=== PATIENT | male | born 1975 | race Caucasian/White ===

== ENCOUNTER 2018-04-02 06:13 | Inpatient (IN) | payer OTHER ==
[~2018-04-02] VITALS: Ht 193 cm; Wt 160.6 kg
[2018-04-02] VITALS (11 sets, daily range): BP systolic 103–133; BP diastolic 63–70
[~2018-04-02 06:13] MED LIST: ALLO100T PO; BISACODYL 10 MG SUPP.RECT. ONE; BUPIVACAINE-EPI 0.5%-1:200000 50 ML VIAL. ONE; CETI10TA22 PO; HEPARIN 1,000 UNIT in IV NORMAL SALINE 1,000 ML for SURG PERIOP IRR ONE; HYDR25TA9 PO; IOHEXOL 300 MG/ML 100ML VIAL. ONE; MULT1TAB52 PO; RANI150C PO; SURGICEL HEMOSTAT 2X3 EACH. ONE
[2018-04-02] MEDS ORDERED: fentaNYL PF VIAL 100 MCG/2 ML VIAL IV PRN ×2 (07:00)
[2018-04-02] MEDS ORDERED: PROCHLORPERAZINE 10 MG/2 ML VIAL. IV PRN (07:00)
[2018-04-02] MEDS ORDERED: MORPHINE SULFATE 2 MG/ML VIAL. IV PRN (07:00)
[2018-04-02] MEDS ORDERED: ONDANSETRON PF 4 MG/2 ML VIAL. IV PRN (07:00)
[2018-04-02] MEDS ORDERED: LIDOCAINE 1% PF 2 ML VIAL. ID PRN (07:00)
[2018-04-02] MEDS ORDERED: IV RINGERS,LACTATED 1000ML 1,000 ML IV SCH (07:00)
[2018-04-02] MEDS ORDERED: HYDROmorphone 2 MG/ML VIAL IV PRN (07:00)
[2018-04-02] MEDS ORDERED: LIDOCAINE 2% PF 2ML VIAL. ONE (07:30)
[2018-04-02] MEDS ORDERED: ROCURONIUM 100 MG/10 ML VIAL. ONE (07:32)
[2018-04-02] MEDS ORDERED: PROPOFOL 20 ML IV ONE (07:32)
[2018-04-02] MEDS ORDERED: LIDOCAINE 1% PF 5 ML VIAL. ONE (07:32)
[2018-04-02 07:33] LABS: BASO % 1 % (0-3); EOS # 0.1 x10^3/uL (0.0-0.7); EOS % 2 % (0-3); HEMATOCRIT 41.9 % (39.0-53.0); HEMOGLOBIN 14.4 g/dL (13.0-17.5); LYMPH # 1.9 x10^3/uL (1.0-4.8); LYMPH % 24 % (24-48); MEAN CORPUSCULAR HEMOGLOBIN 32 pg (25-35); MEAN CORPUSCULAR HGB CONC 34 g/dL (31-37); MEAN CORPUSCULAR VOLUME 92 fL (79-100); MONO # 0.9 x10^3/uL (0.0-1.1); MONO % 11 % (0-9); NEUT % 63 % (31-73); PLATELET COUNT 198 x10^3/uL (140-400); RED BLOOD COUNT 4.55 x10^6/uL (4.30-5.70); RED CELL DISTRIBUTION WIDTH 13.6 % (11.5-14.5)
[2018-04-02] MEDS ORDERED: fentaNYL PF VIAL 250 MCG/5 ML VIAL ONE (07:33)
--- NOTE | 2018-04-02 07:41 | PDOC ---
SURGICAL PROGRESS NOTE Subjective 42 yo M with episodic jaundice, slow increasing in size pancreatic cyst. TO OR for laparoscopic verus open liver biopsy, cholecystectomy with cholangiogram, distal pancreatectomy, splenectomy. Pt has had vaccines. Office note H&P reviewed and unchanged. R/R/B/A d/w pt and pt's supportive family. Risks, including, but not limited to: bleeding, infection, damage to surrounding structures, risk of anesthesia, risk of pancreatic fistula. They appear to understand, their questions are answered and they elect to proceed. Vital Signs Vital Signs Date Time Temp Pulse Resp B/P (MAP) Pulse Ox O2 Delivery O2 Flow Rate FiO2 04/02/18 07:32 98.2 68 18 153/78 98 Room Air 98.2 Labs Laboratory Tests Test 04/02/18 06:45 White Blood Count 8.0 x10^3/uL (4.0-11.0) Red Blood Count 4.55 x10^6/uL (4.30-5.70) Hemoglobin 14.4 g/dL (13.0-17.5) Hematocrit 41.9 % (39.0-53.0) Mean Corpuscular Volume 92 fL (79-100) Mean Corpuscular Hemoglobin 32 pg (25-35) Mean Corpuscular Hemoglobin Concent 34 g/dL (31-37) Red Cell Distribution Width 13.6 % (11.5-14.5) Platelet Count 198 x10^3/uL (140-400) Neutrophils (%) (Auto) 63 % (31-73) Lymphocytes (%) (Auto) 24 % (24-48) Monocytes (%) (Auto) 11 % (0-9) Eosinophils (%) (Auto) 2 % (0-3) Basophils (%) (Auto) 1 % (0-3) Neutrophils # (Auto) 5.0 x10^3uL (1.8-7.7) Lymphocytes # (Auto) 1.9 x10^3/uL (1.0-4.8) Monocytes # (Auto) 0.9 x10^3/uL (0.0-1.1) Eosinophils # (Auto) 0.1 x10^3/uL (0.0-0.7) Basophils # (Auto) 0.0 x10^3/uL (0.0-0.2) Laboratory Tests Test 04/02/18 06:45 White Blood Count 8.0 x10^3/uL (4.0-11.0) Red Blood Count 4.55 x10^6/uL (4.30-5.70) Hemoglobin 14.4 g/dL (13.0-17.5) Hematocrit 41.9 % (39.0-53.0) Mean Corpuscular Volume 92 fL (79-100) Mean Corpuscular Hemoglobin 32 pg (25-35) Mean Corpuscular Hemoglobin Concent 34 g/dL (31-37) Red Cell Distribution Width 13.6 % (11.5-14.5) Platelet Count 198 x10^3/uL (140-400) Neutrophils (%) (Auto) 63 % (31-73) Lymphocytes (%) (Auto) 24 % (24-48) Monocytes (%) (Auto) 11 % (0-9) Eosinophils (%) (Auto) 2 % (0-3) Basophils (%) (Auto) 1 % (0-3) Neutrophils # (Auto) 5.0 x10^3uL (1.8-7.7) Lymphocytes # (Auto) 1.9 x10^3/uL (1.0-4.8) Monocytes # (Auto) 0.9 x10^3/uL (0.0-1.1) Eosinophils # (Auto) 0.1 x10^3/uL (0.0-0.7) Basophils # (Auto) 0.0 x10^3/uL (0.0-0.2) RENETTA LAMBERT MD Apr 02, 2018 07:41
[2018-04-02] MEDS ORDERED: ePHEDrine PF IN SALINE 50 MG/5 ML DISP.SYRIN IV ONE (08:42)
[2018-04-02] MEDS ORDERED: DEXAMETHASONE SOD PHOS 20 MG/5 ML VIAL. ONE (08:42)
[2018-04-02] MEDS ORDERED: BUPIVACAINE MPF 0.25% 30 ML VIAL. ONE (08:53)
[2018-04-02] MEDS ORDERED: HYDROCORTISONE SOD SUCC/PF 100 MG/2 ML VIAL. ONE (08:58)
[2018-04-02] MEDS ORDERED: diphenhydrAMINE 50 MG/ML VIAL ONE (08:58)
[2018-04-02] MEDS ORDERED: FAMOTIDINE 20 MG/2 ML VIAL ONE (08:58)
[2018-04-02] MEDS ORDERED: NALOXONE 0.4 MG/ML VIAL. IV PRN (09:00)
[2018-04-02] MEDS ORDERED: METRONIDAZOLE 500 MG IV ONE (09:15)
[2018-04-02] MEDS ORDERED: DESFLURANE > 120 MINUTES IH ONE (09:21)
--- NOTE | 2018-04-02 09:44 | RAD ---
Intraoperative cholangiogram, 3 views, 04/02/2018: HISTORY: Cholecystectomy 3 spot films from surgery are presented for review. Contrast has been injected into the cystic duct remnant. 0.5 minutes of fluoroscopy time was utilized. There is good flow contrast into the duodenum at the ampulla. No filling defect is seen in the common duct to suggest a retained stone, although some patient motion artifact is present on these images. The incompletely opacified intrahepatic ducts are unremarkable. No contrast extravasation is seen. IMPRESSION: No significant abnormality is detected. Electronically signed by: Earnest Chacko MD (04/02/2018 9:41 AM) [facility]
[2018-04-02] MEDS ORDERED: NEOSTIGMINE METHYLSULFATE 5 MG/5 ML SYRINGE. ONE (10:29)
[2018-04-02] MEDS ORDERED: GLYCOPYRROLATE 1 MG/5 ML VIAL. ONE (10:29)
[2018-04-02] MEDS ORDERED: ONDANSETRON PF 4 MG/2 ML VIAL. ONE (10:30)
[2018-04-02] MEDS ORDERED: SURGICEL HEMOSTAT 4X8 EACH. ONE (10:58)
[2018-04-02] MEDS ORDERED: PHENYLEPHRINE in 0.9% NACL PF 1 MG/10 ML SYRINGE. IV ONE (11:54)
[2018-04-02] MEDS ORDERED: 0.9 % SODIUM CHLORIDE 10 ML DISP.SYRIN. IV PRN (13:45)
[2018-04-02] MEDS: IV RINGERS,LACTATED 1000ML 1,000 ML IV SCH ×2 (14:00→21:39)
--- NOTE | 2018-04-02 14:05 | PDOC4 ---
OPERATIVE NOTE Date: Date: Apr 02, 2018 Pre-Op Diagnosis: Pancreatic cyst Post-Op Diagnosis: same, small bowel adhesion, cholecystitis, fatty liver, morbid obesity, heterotrophic pancreas proximal small bowel Procedure Performed: Laparoscopic cholecystectomy with cholangiogram, liver biopsy, lysis of adhesion , small bowel biopsy, distal pancreatectomy and splenectomy Surgeon: Vargas Lambert Anesthesia Type: GETA plus local Blood Loss: 800 Specimans Obtained: omental biopsy, gallbladder, liver biopsy, distal pancreas and spleen, small bowel mass Findings: Adherent small bowel to right abdominal wall, omental mass c/w fat necrosis, morbid obesity making procedure difficult throughout, scarring to gallbladder, normal cholangiogram, fatty liver, moderate size cyst neck of pancreas, splenomegaly Complications: none Operative Note: After obtaining informed consent, patient was taken to OR, induced under GETA and prepped in the usual fashion. 5 mm port placed supraumbilical and RUQ, 12 port placed epigastric, all under laparoscopic exploration. Abdominal cavity explored and normal except for other listed issues. Liver was fatty in nature. Given previous episode of suspected jaundice, liver biopsy obtained edge of right liver using ligasure. Specimen delivered and sent to pathology. No obvious bleeding. Gallbladder noted to have significant scarring to it. Given history of possible gallstone pancreatitis and this scarring, cholecystectomy was performed. Adhesions taken down using sharp dissection. Circumferential dissection performed of cystic duct infundibulum junction. Cystic artery ligated with ligasure. Critical view obtained which demonstrated cystic duct as only structure going into gallbladder. Cholangiogram was obtained which was normal. Cystic duct ligated with hemolok and clips. Gallbladder taken off of fossa using ligasure and cautery. Gallbladder placed in bag, delivered and sent to pathology for evaluation. Clips intact. No evidence of bleeding. A loop of small intestine adherent to right abdominal wall with some separation of peritoneum (suspect kidney extraction site). Adhesion lysed with endoshears , without injury of bowel. Later, during open procedure, small bowel explored completely and appeared normal and uninjured. Attempts at dissecting greater curvature of stomach was difficult, secondary to morbid obesity. Given this, open procedure indicated. Midline incision was made with cautery. Fascia divided in midline. Abdominal cavity explored. Right omental mass was noted and excised with ligasure. Pathology demonstrated this to be fat necrosis. Small bowel run and normal except for nodule in upper small bowel, palpably. Small bowel excised longitudinally and closed transversely with 3 0 PDS and 3 0 vicryl. Mass sent to pathology which noted heterotrophic pancreas. No other bowel abnormality noted. NGT noted to be in stomach. Attention turned to pancreas. Greater curvature taken down using cautery, including short gastrics, with injuring stomach. Neck of pancreas dissected out. Moderate size cyst noted, well defined in the setting of otherwise soft, pink and normal gland. Splenic artery ligated with 0 vicryl and ligasure. Splenic vein ligated with 3 0 prolene. Neck of pancreas transected with MARHSA stapler. Pancreas dissected distally using ligasure. Spleen dissected out from attachment using ligasure, without injuring associated splenic flexure of colon. Specimen sent to pathology for evaluation. Copious irrigation. No obvious bleeding noted. Surgicel placed in fossa. Transected margin of pancreas noted to be soft and an obvious duct not noted and felt to be small in size. Given this, and patient's morbid obesity, large drain placement indicated , secondary to concern for pancreatic fistula. Round ligament of liver had been mobilized for placement, but not an option secondary to body habitus. Nirmala drain brought in LUQ and placed in splenic fossa near transected margin and secured with 3 0 nylon. Copious irrigation. No evidence of bleeding or other pathology. Fascia repaired with 0 PDS. Axel placed in wound. Skin repaired with 3 0 vicyrl and 4 0 monocryl. Dressing placed. Patient tolerated procedure well and sent to PACU in stable condition. All counts correct. Wound class 3. RENETTA LAMBERT MD Apr 02, 2018 14:05
--- NOTE | 2018-04-02 15:30 | RAD ---
KUB, 04/02/2018: HISTORY: Postop evaluation The abdominal gas pattern is unremarkable. There is no evidence of a retained surgical instrument, needle or radiopaque sponge on this single view. Electronically signed by: Earnest Chacko MD (04/02/2018 3:26 PM) [facility]
[2018-04-02] MEDS: NORMAL SALINE EP PRN ×2 (15:47→21:41)
[2018-04-02] MEDS: ROPIVACAINE 0.5% EP PRN ×2 (15:47→21:41)
[2018-04-02] MEDS: [UNRECOGNIZED DRUG - OTHER] EP PRN ×2 (15:47→21:41)
[2018-04-02] MEDS: FENTANYL EP PRN ×2 (15:47→21:41)
[2018-04-02] MEDS: ONDANSETRON PF 4 MG/2 ML VIAL. IV PRN (23:00)
[2018-04-03 03:30] VITALS: BP 120/62
[2018-04-03] MEDS: ROPIVACAINE 0.5% EP PRN ×4 (03:40→20:10)
[2018-04-03] MEDS: [UNRECOGNIZED DRUG - OTHER] EP PRN ×4 (03:40→20:10)
[2018-04-03] MEDS: FENTANYL EP PRN ×4 (03:40→20:10)
[2018-04-03] MEDS: NORMAL SALINE EP PRN ×4 (03:40→20:10)
[2018-04-03] MEDS ORDERED: PHENOL ORAL SPRAY 177ML BOTTLE. PO PRN (05:45)
[2018-04-03 07:00] VITALS: BP 114/60
[2018-04-03 07:00] LABS: BASO % 0 % (0-3); EOS % 0 % (0-3); HEMATOCRIT 40.9 % (39.0-53.0); HEMOGLOBIN 13.9 g/dL (13.0-17.5); LYMPH # 1.1 x10^3/uL (1.0-4.8); LYMPH % 4 % (24-48); MEAN CORPUSCULAR HEMOGLOBIN 32 pg (25-35); MEAN CORPUSCULAR HGB CONC 34 g/dL (31-37); MEAN CORPUSCULAR VOLUME 93 fL (79-100); MONO # 3.8 x10^3/uL (0.0-1.1); MONO % 13 % (0-9); NEUT # 23.4 x10^3uL (1.8-7.7); NEUT % 82 % (31-73); PLATELET COUNT 239 x10^3/uL (140-400); RED BLOOD COUNT 4.38 x10^6/uL (4.30-5.70); RED CELL DISTRIBUTION WIDTH 13.8 % (11.5-14.5)
[2018-04-03 07:06] LABS: WHITE BLOOD COUNT 28.4 x10^3/uL (4.0-11.0)
[2018-04-03] MEDS ORDERED: DEXTROSE 50% 25 GM / 50ML DISP.SYRIN. IV PRN ×2 (08:00→13:30)
[2018-04-03] MEDS: IV RINGERS,LACTATED 1000ML 1,000 ML IV SCH ×2 (09:19→14:47)
[2018-04-03 09:25] LABS: % BANDS 7 % (0-9); % LYMPHS 5 % (24-48); % MONOS 8 % (0-10); % SEGS 80 % (35-66); PLT ESTIMATE ADEQUATE (ADEQUATE)
[2018-04-03] MEDS: HEPARIN PF for SUB-Q USE 5,000 UNIT/0.5 ML VIAL. SQ SCH ×2 (09:27→21:26)
[2018-04-03] MEDS: ONDANSETRON PF 4 MG/2 ML VIAL. IV PRN ×3 (10:22→21:15)
[2018-04-03 11:00] VITALS: BP 118/73
[2018-04-03] MEDS ORDERED: IV RINGERS,LACTATED 500ML 500 ML IV ONE (11:30)
--- NOTE | 2018-04-03 11:32 | PDOC ---
SURGICAL PROGRESS NOTE Subjective Pt with c/o incisional pain, sitting up in chair, appears fatigued. Has ambulated to door and back Vital Signs Vital Signs Date Time Temp Pulse Resp B/P (MAP) Pulse Ox O2 Delivery O2 Flow Rate FiO2 04/03/18 11:00 97.5 110 18 118/73 (88) 93 Nasal Cannula 97.5 04/03/18 04:10 2.0 I&O Intake and Output 04/03/18 07:00 Intake Total 3253 ml Output Total 2215 ml Balance 1038 ml Intake Oral 3 ml IV Total 3250 ml Output Urine Total 1110 ml Gastric Drainage Total 200 ml Drainage Total 105 ml Estimated Blood Loss 800 ml PATIENT HAS A ENRIQUE: Yes General: Alert, Oriented X3, Cooperative, No acute distress Abdomen: Soft, Other (dressing intact, drain with dark sanguinous drainage) Labs Laboratory Tests Test 04/02/18 06:45 04/02/18 17:06 04/02/18 23:04 04/03/18 06:05 White Blood Count 8.0 x10^3/uL (4.0-11.0) 28.4 x10^3/uL (4.0-11.0) Red Blood Count 4.55 x10^6/uL (4.30-5.70) 4.38 x10^6/uL (4.30-5.70) Hemoglobin 14.4 g/dL (13.0-17.5) 13.9 g/dL (13.0-17.5) Hematocrit 41.9 % (39.0-53.0) 40.9 % (39.0-53.0) Mean Corpuscular Volume 92 fL (79-100) 93 fL (79-100) Mean Corpuscular Hemoglobin 32 pg (25-35) 32 pg (25-35) Mean Corpuscular Hemoglobin Concent 34 g/dL (31-37) 34 g/dL (31-37) Red Cell Distribution Width 13.6 % (11.5-14.5) 13.8 % (11.5-14.5) Platelet Count 198 x10^3/uL (140-400) 239 x10^3/uL (140-400) Neutrophils (%) (Auto) 63 % (31-73) 82 % (31-73) Lymphocytes (%) (Auto) 24 % (24-48) 4 % (24-48) Monocytes (%) (Auto) 11 % (0-9) 13 % (0-9) Eosinophils (%) (Auto) 2 % (0-3) 0 % (0-3) Basophils (%) (Auto) 1 % (0-3) 0 % (0-3) Neutrophils # (Auto) 5.0 x10^3uL (1.8-7.7) 23.4 x10^3uL (1.8-7.7) Lymphocytes # (Auto) 1.9 x10^3/uL (1.0-4.8) 1.1 x10^3/uL (1.0-4.8) Monocytes # (Auto) 0.9 x10^3/uL (0.0-1.1) 3.8 x10^3/uL (0.0-1.1) Eosinophils # (Auto) 0.1 x10^3/uL (0.0-0.7) 0.0 x10^3/uL (0.0-0.7) Basophils # (Auto) 0.0 x10^3/uL (0.0-0.2) 0.0 x10^3/uL (0.0-0.2) Potassium Level 3.8 mmol/L (3.5-5.1) Glucose (Fingerstick) 153 mg/dL (70-99) 159 mg/dL (70-99) Segmented Neutrophils % 80 % (35-66) Band Neutrophils % 7 % (0-9) Lymphocytes % 5 % (24-48) Monocytes % 8 % (0-10) Platelet Estimate Adequate (ADEQUATE) Test 04/03/18 08:03 Glucose (Fingerstick) 178 mg/dL (70-99) Laboratory Tests Test 04/02/18 17:06 04/02/18 23:04 04/03/18 06:05 04/03/18 08:03 Glucose (Fingerstick) 153 mg/dL (70-99) 159 mg/dL (70-99) 178 mg/dL (70-99) White Blood Count 28.4 x10^3/uL (4.0-11.0) Red Blood Count 4.38 x10^6/uL (4.30-5.70) Hemoglobin 13.9 g/dL (13.0-17.5) Hematocrit 40.9 % (39.0-53.0) Mean Corpuscular Volume 93 fL (79-100) Mean Corpuscular Hemoglobin 32 pg (25-35) Mean Corpuscular Hemoglobin Concent 34 g/dL (31-37) Red Cell Distribution Width 13.8 % (11.5-14.5) Platelet Count 239 x10^3/uL (140-400) Neutrophils (%) (Auto) 82 % (31-73) Lymphocytes (%) (Auto) 4 % (24-48) Monocytes (%) (Auto) 13 % (0-9) Eosinophils (%) (Auto) 0 % (0-3) Basophils (%) (Auto) 0 % (0-3) Neutrophils # (Auto) 23.4 x10^3uL (1.8-7.7) Lymphocytes # (Auto) 1.1 x10^3/uL (1.0-4.8) Monocytes # (Auto) 3.8 x10^3/uL (0.0-1.1) Eosinophils # (Auto) 0.0 x10^3/uL (0.0-0.7) Basophils # (Auto) 0.0 x10^3/uL (0.0-0.2) Segmented Neutrophils % 80 % (35-66) Band Neutrophils % 7 % (0-9) Lymphocytes % 5 % (24-48) Monocytes % 8 % (0-10) Platelet Estimate Adequate (ADEQUATE) Problem List s/p xlap encouraged OOB await bowel fxn fluid bolus for mild tachycardia and dark UOP consult hospitalist for elevated sugars (suspect post op in nature) monitor WBC (post splenectomy) RENETTA LAMBERT MD Apr 03, 2018 11:32
--- NOTE | 2018-04-03 13:23 | PDOC2 ---
CONSULT Date of Consult Date of Consult DATE: 04/03/18 TIME: 13:19 Reason for Consult Reason for Consult: Hyperglycemia Referring Physician Referring Physician: dr. Goldberg Identification/Chief Complaint Chief Complaint Pancreatic cyst Source Source: Caregiver, Chart review, Patient History of Present Illness Reason for Visit: 42yo m, H/O RT kidney Ca s/p removal , kidney stone on allopurinol and hctz, s/ p sx for pancreatic cyst. as per dr. Lee, the pancreatic cyst was big, and concerned about malignancy , for which pt underwent lap changed to open abd sx , Laparoscopic cholecystectomy with cholangiogram, liver biopsy, lysis of adhesion, small bowel biopsy, distal pancreatectomy and splenectomy. pt current feels pain 4/10 with epidural pain control, npo, NGT , 1 Left side ANDREY drain. has no bm or flatus post op. TH was consulted for hyperglycemia. Past Medical History Past Medical History kidney stone Past Surgical History Past Surgical History nephrectomy Family History Family History: Hypertension Social History No ALCOHOL: none Drugs: None Lives: with Family Domestic Violence: Neg Current Medications Current Medications Current Medications Heparin Sodium (Porcine) 1000 unit/Sodium Chloride 1,001 ml @ 1,001 mls/hr 1X ONCE IRR ; Start 04/02/18 at 06:00; Stop 04/02/18 at 06:59; Status DC Cefazolin Sodium/ Dextrose 50 ml @ 100 mls/hr 1X PREOP PRN IV PRIOR TO PROCEDURE Last administered on 04/02/18at 08:43; Start 04/02/18 at 06:00; Stop 04/02 at 18:00; Status DC Ondansetron HCl (Zofran) 4 mg PRN Q6HRS PRN IV NAUSEA/VOMITING Last administered on 04/02/18at 17:33; Start 04/02/18 at 07:00; Stop 04/03/18 at 06:59; Status DC Fentanyl Citrate (Fentanyl 2ml Vial) 25 mcg PRN Q5MIN PRN IV MILD PAIN; Start 04/02/18 at 07:00; Stop 04/03/18 at 06:59; Status DC Fentanyl Citrate (Fentanyl 2ml Vial) 50 mcg PRN Q5MIN PRN IV MODERATE TO SEVERE PAIN; Start 04/02/18 at 07:00; Stop 04/03/18 at 06:59; Status DC Morphine Sulfate (Morphine Sulfate) 1 mg PRN Q10MIN PRN IV SEVERE PAIN; Start 04/02/18 at 07:00; Stop 04/03/18 at 06:59; Status DC Ringer's Solution 1,000 ml @ 30 mls/hr Q24H IV Last administered on 04/02/18at 07:00; Start 04/02/18 at 07:00; Stop 04/02/18 at 18:59; Status DC Lidocaine HCl (Xylocaine-Mpf 1% 2ml Vial) 2 ml PRN 1X PRN ID IV START; Start at 07:00; Stop 04/03/18 at 06:59; Status DC Hydromorphone HCl (Dilaudid) 0.5 mg PRN Q10MIN PRN IV SEV PAIN, Second choice; Start 04/02/18 at 07:00; Stop 04/03/18 at 06:59; Status DC Prochlorperazine Edisylate (Compazine) 5 mg PACU PRN PRN IV NAUSEA, MRX1; Start 04/02/18 at 07:00; Stop 04/03/18 at 06:59; Status DC Bupivacaine HCl/ Epinephrine Bitart (Marcaine-Epi 0.5%-1:[id number]) 50 ml STK-MED ONCE .ROUTE Last administered on 04/02/18at 09:00; Start 04/02/18 at 05:50; Stop 04/02/18 at 06:50; Status DC Cellulose (Surgicel Hemostat 2x3) 1 each STK-MED ONCE .ROUTE ; Start 04/02/18 at 05:50; Stop 04/02/18 at 06:50; Status DC Iohexol (Omnipaque 300 Mg/ml) 100 ml STK-MED ONCE .ROUTE ; Start 04/02/18 at 05: 50; Stop 04/02/18 at 06:50; Status DC Bisacodyl (Dulcolax Supp) 10 mg STK-MED ONCE .ROUTE ; Start 04/02/18 at 05:50; Stop 04/02/18 at 06:51; Status DC Bupivacaine HCl/ Epinephrine Bitart (Marcaine-Epi 0.5%-1:[id number]) 50 ml STK-MED ONCE .ROUTE ; Start 04/02/18 at 06:10; Stop 04/02/18 at 07:11; Status DC Cellulose (Surgicel Hemostat 2x3) 1 each STK-MED ONCE .ROUTE ; Start 04/02/18 at 06:10; Stop 04/02/18 at 07:11; Status DC Bisacodyl (Dulcolax Supp) 10 mg STK-MED ONCE .ROUTE ; Start 04/02/18 at 06:10; Stop 04/02/18 at 07:11; Status DC Iohexol (Omnipaque 300 Mg/ml) 100 ml STK-MED ONCE .ROUTE ; Start 04/02/18 at 06: 11; Stop 04/02/18 at 07:12; Status DC Lidocaine HCl (Xylocaine-Mpf 2% Vial) 2 ml STK-MED ONCE .ROUTE ; Start 04/02/18 at 07:30; Stop 04/02/18 at 07:31; Status DC Propofol 20 ml @ As Directed STK-MED ONCE IV ; Start 04/02/18 at 07:32; Stop 04/02 at 07:33; Status DC Lidocaine HCl (Xylocaine-Mpf 1% 5ml Vial) 5 ml STK-MED ONCE .ROUTE ; Start at 07:32; Stop 04/02/18 at 07:33; Status DC Rocuronium [place] (Zemuron) 100 mg STK-MED ONCE .ROUTE ; Start 04/02/18 at 07:32 ; Stop 04/02/18 at 07:33; Status DC Fentanyl Citrate (Fentanyl 5ml Vial) 250 mcg STK-MED ONCE .ROUTE ; Start at 07:33; Stop 04/02/18 at 07:34; Status DC Dexamethasone Sodium Phosphate (Decadron) 20 mg STK-MED ONCE .ROUTE ; Start 04/02 at 08:42; Stop 04/02/18 at 08:43; Status DC Ephedrine Sulfate (ePHEDrine PF IN SALINE SYRINGE) 50 mg STK-MED ONCE IV ; Start 04/02/18 at 08:42; Stop 04/02/18 at 08:43; Status DC Sodium Chloride 38.4 ml/Fentanyl Citrate 250 mcg/ Ropivacaine 10 ml/ Epidural Dosage Infused (Pha) 53.4 ml @ 0 mls/hr CONT PRN EP SEE PROTOCOL TABLE Last administered on 04/03/18at 09:19; Start 04/02/18 at 09:00 Naloxone HCl (Narcan) 0.1 mg PRN 1X PRN IV RESP DEPRESSION, MRX1; Start at 09:00 Bupivacaine HCl (Sensorcaine Mpf 0.25%) 30 ml STK-MED ONCE .ROUTE ; Start at 08:53; Stop 04/02/18 at 08:54; Status DC Famotidine (Pepcid Vial) 20 mg STK-MED ONCE .ROUTE ; Start 04/02/18 at 08:58; Stop 04/02/18 at 08:59; Status DC Hydrocortisone Sodium Succinate (Solu-CORTEF) 100 mg STK-MED ONCE .ROUTE ; Start 04/02/18 at 08:58; Stop 04/02/18 at 08:59; Status DC Diphenhydramine HCl (Benadryl) 50 mg STK-MED ONCE .ROUTE ; Start 04/02/18 at 08: 58; Stop 04/02/18 at 08:59; Status DC Metronidazole 200 ml @ 200 mls/hr 1X ONCE IV Last administered on 04/02/18at 09 :11; Start 04/02/18 at 09:15; Stop 04/02/18 at 10:14; Status DC Desflurane (Suprane) 90 ml STK-MED ONCE IH ; Start 04/02/18 at 09:21; Stop at 09:22; Status DC Glycopyrrolate (Robinul) 1 mg STK-MED ONCE .ROUTE ; Start 04/02/18 at 10:29; Stop 04/02/18 at 10:30; Status DC Neostigmine Methylsulfate (Neostigmine Methylsulfate) 5 mg STK-MED ONCE .ROUTE ; Start 04/02/18 at 10:29; Stop 04/02/18 at 10:30; Status DC Ondansetron HCl (Zofran) 4 mg STK-MED ONCE .ROUTE ; Start 04/02/18 at 10:30; Stop 04/02/18 at 10:31; Status DC Phenylephrine HCl (PHENYLEPHRINE in 0.9% NACL PF) 1 mg STK-MED ONCE IV ; Start 04/02/18 at 11:54; Stop 04/02/18 at 11:55; Status DC Cellulose (Surgicel Hemostat 4x8) 1 each STK-MED ONCE .ROUTE Last administered on 04/02/18at 12:00; Start 04/02/18 at 10:58; Stop 04/02/18 at 11:58; Status DC Sodium Chloride (Normal Saline Flush) 3 ml QSHIFT PRN IV AFTER MEDS AND BLOOD DRAWS; Start 04/02/18 at 13:45 Ringer's Solution 1,000 ml @ 100 mls/hr Q10H IV Last administered on 04/03/18at 09:19; Start 04/02/18 at 14:00 Ondansetron HCl (Zofran) 4 mg PRN Q6HRS PRN IV NAUESA, 1ST CHOICE Last administered on 04/03/18at 10:22; Start 04/02/18 at 13:45 Heparin Sodium (Porcine) (Heparin Sq) 5,000 unit Q12HR SQ Last administered on 04/03/18at 09:27; Start 04/03/18 at 09:00 Throat Lozenges (Chloraseptic) 1 spray PRN Q2HR PRN PO SORE THROAT; Start at 05:45 Dextrose (Dextrose 50%-Water Syringe) 12.5 gm PRN Q15MIN PRN IV SEE COMMENTS; Start 04/03/18 at 08:00 Ringer's Solution 500 ml @ 500 mls/hr 1X ONCE IV ; Start 04/03/18 at 11:30; Stop 04/03/18 at 12:29; Status DC Active Scripts Active Reported Multivitamins (Multivitamin) 1 Each Tablet 1 Tab PO DAILY Zyrtec (Cetirizine Hcl) 10 Mg Tablet 1 Tab PO DAILY Hydrochlorothiazide Tablet (Hydrochlorothiazide) 25 Mg Tablet 25 Mg PO DAILY Ranitidine Hcl 150 Mg Capsule 150 Mg PO DAILY Allopurinol 100 Mg Tablet 100 Mg PO DAILY Allergies Allergies: Coded Allergies: Iodinated Contrast- Oral and IV Dye (Verified Allergy, Intermediate, Hives , 03/28/18) egg (Verified Adverse Reaction, Intermediate, Nausea and Vomiting, 04/01/18) Physical Exam General: Alert, Oriented X3, Cooperative HEENT: Atraumatic, PERRLA Lungs: Clear to auscultation Heart: Regular rate, Normal S1, Normal S2 Abdomen: Normal bowel sounds, Soft, Other (mild distended, abd sx wound has dressing on, some bloody drain. Left abd has ANDREY with dark blood drain.) Extremities: No clubbing, No cyanosis Skin: No rashes, No breakdown Neuro: Normal gait, Normal speech MUSCULOSKELETAL: No joint tenderness, No deformity Vitals VITALS Vital Signs Date Time Temp Pulse Resp B/P (MAP) Pulse Ox O2 Delivery O2 Flow Rate FiO2 04/03/18 11:00 97.5 110 18 118/73 (88) 93 Nasal Cannula 97.5 04/03/18 04:10 2.0 Labs Labs Laboratory Tests Test 04/02/18 06:45 04/02/18 17:06 04/02/18 23:04 04/03/18 06:05 White Blood Count 8.0 x10^3/uL (4.0-11.0) 28.4 x10^3/uL (4.0-11.0) Red Blood Count 4.55 x10^6/uL (4.30-5.70) 4.38 x10^6/uL (4.30-5.70) Hemoglobin 14.4 g/dL (13.0-17.5) 13.9 g/dL (13.0-17.5) Hematocrit 41.9 % (39.0-53.0) 40.9 % (39.0-53.0) Mean Corpuscular Volume 92 fL (79-100) 93 fL (79-100) Mean Corpuscular Hemoglobin 32 pg (25-35) 32 pg (25-35) Mean Corpuscular Hemoglobin Concent 34 g/dL (31-37) 34 g/dL (31-37) Red Cell Distribution Width 13.6 % (11.5-14.5) 13.8 % (11.5-14.5) Platelet Count 198 x10^3/uL (140-400) 239 x10^3/uL (140-400) Neutrophils (%) (Auto) 63 % (31-73) 82 % (31-73) Lymphocytes (%) (Auto) 24 % (24-48) 4 % (24-48) Monocytes (%) (Auto) 11 % (0-9) 13 % (0-9) Eosinophils (%) (Auto) 2 % (0-3) 0 % (0-3) Basophils (%) (Auto) 1 % (0-3) 0 % (0-3) Neutrophils # (Auto) 5.0 x10^3uL (1.8-7.7) 23.4 x10^3uL (1.8-7.7) Lymphocytes # (Auto) 1.9 x10^3/uL (1.0-4.8) 1.1 x10^3/uL (1.0-4.8) Monocytes # (Auto) 0.9 x10^3/uL (0.0-1.1) 3.8 x10^3/uL (0.0-1.1) Eosinophils # (Auto) 0.1 x10^3/uL (0.0-0.7) 0.0 x10^3/uL (0.0-0.7) Basophils # (Auto) 0.0 x10^3/uL (0.0-0.2) 0.0 x10^3/uL (0.0-0.2) Potassium Level 3.8 mmol/L (3.5-5.1) Glucose (Fingerstick) 153 mg/dL (70-99) 159 mg/dL (70-99) Segmented Neutrophils % 80 % (35-66) Band Neutrophils % 7 % (0-9) Lymphocytes % 5 % (24-48) Monocytes % 8 % (0-10) Platelet Estimate Adequate (ADEQUATE) Test 04/03/18 08:03 04/03/18 11:35 Glucose (Fingerstick) 178 mg/dL (70-99) 171 mg/dL (70-99) Laboratory Tests Test 04/02/18 17:06 04/02/18 23:04 04/03/18 06:05 04/03/18 08:03 Glucose (Fingerstick) 153 mg/dL (70-99) 159 mg/dL (70-99) 178 mg/dL (70-99) White Blood Count 28.4 x10^3/uL (4.0-11.0) Red Blood Count 4.38 x10^6/uL (4.30-5.70) Hemoglobin 13.9 g/dL (13.0-17.5) Hematocrit 40.9 % (39.0-53.0) Mean Corpuscular Volume 93 fL (79-100) Mean Corpuscular Hemoglobin 32 pg (25-35) Mean Corpuscular Hemoglobin Concent 34 g/dL (31-37) Red Cell Distribution Width 13.8 % (11.5-14.5) Platelet Count 239 x10^3/uL (140-400) Neutrophils (%) (Auto) 82 % (31-73) Lymphocytes (%) (Auto) 4 % (24-48) Monocytes (%) (Auto) 13 % (0-9) Eosinophils (%) (Auto) 0 % (0-3) Basophils (%) (Auto) 0 % (0-3) Neutrophils # (Auto) 23.4 x10^3uL (1.8-7.7) Lymphocytes # (Auto) 1.1 x10^3/uL (1.0-4.8) Monocytes # (Auto) 3.8 x10^3/uL (0.0-1.1) Eosinophils # (Auto) 0.0 x10^3/uL (0.0-0.7) Basophils # (Auto) 0.0 x10^3/uL (0.0-0.2) Segmented Neutrophils % 80 % (35-66) Band Neutrophils % 7 % (0-9) Lymphocytes % 5 % (24-48) Monocytes % 8 % (0-10) Platelet Estimate Adequate (ADEQUATE) Test 04/03/18 11:35 Glucose (Fingerstick) 171 mg/dL (70-99) Assessment/Plan Assessment/Plan pancreatic cyst s/p Laparoscopic cholecystectomy,liver biopsy, lysis of adhesion , small bowel biopsy, distal pancreatectomy and splenectomy 04/02 h/o rt kidney Ca s/p removal h/o kidney stone leukocytosis post splenectomy hyperglycemia, likely 2/2 partial pancreatectomy plan: fu with PCP sx, npo, NGT, ANDREY drain waiting for bowel function regain increase ivf to 125cc/h, bolus given as per sx, consider hernández to PPN if long time NPO labs tmr dvt, gi ppx add low dose insulin SSI for now, if cont high , change to high dose. talked to sx and family at bedside. hold po meds for now. encouraged to ambulate on epidural for pain control thanks for asking for consult BRANDEE SALINAS MD Apr 03, 2018 13:23
[2018-04-03 14:59] VITALS: BP 115/69
[2018-04-03] MEDS: INSULIN LISPRO 300 UNITS/3 ML INSULN.PEN. SQ SCH (15:09)
[2018-04-03 19:00] VITALS: BP 151/71
[2018-04-03] MEDS: FAMOTIDINE 20 MG/2 ML VIAL IVP SCH (21:00)
[2018-04-03 23:00] VITALS: BP 156/77
[2018-04-04] MEDS: FENTANYL EP PRN ×4 (01:40→18:38)
[2018-04-04] MEDS: [UNRECOGNIZED DRUG - OTHER] EP PRN ×4 (01:40→18:38)
[2018-04-04] MEDS: ROPIVACAINE 0.5% EP PRN ×4 (01:40→18:38)
[2018-04-04] MEDS: NORMAL SALINE EP PRN ×4 (01:40→18:38)
[2018-04-04 03:00] VITALS: BP 145/71
[2018-04-04 04:29] LABS: BASO # 0.1 x10^3/uL (0.0-0.2); BASO % 0 % (0-3); EOS % 0 % (0-3); HEMATOCRIT 36.5 % (39.0-53.0); HEMOGLOBIN 12.3 g/dL (13.0-17.5); LYMPH # 1.6 x10^3/uL (1.0-4.8); LYMPH % 5 % (24-48); MEAN CORPUSCULAR HEMOGLOBIN 32 pg (25-35); MEAN CORPUSCULAR HGB CONC 34 g/dL (31-37); MEAN CORPUSCULAR VOLUME 94 fL (79-100); MONO # 4.6 x10^3/uL (0.0-1.1); MONO % 13 % (0-9); NEUT # 27.8 x10^3uL (1.8-7.7); NEUT % 82 % (31-73); PLATELET COUNT 246 x10^3/uL (140-400); RED BLOOD COUNT 3.89 x10^6/uL (4.30-5.70); WHITE BLOOD COUNT 34.1 x10^3/uL (4.0-11.0)
[2018-04-04 05:03] LABS: CALCIUM 8.6 mg/dL (8.5-10.1); CREATININE 1.7 mg/dL (0.7-1.3); GFR 44.4; POTASSIUM 4.5 mmol/L (3.5-5.1)
[2018-04-04] MEDS: ONDANSETRON PF 4 MG/2 ML VIAL. IV PRN ×2 (06:17→21:25)
[2018-04-04 06:23] LABS: % BANDS 5 % (0-9); % LYMPHS 3 % (24-48); % MONOS 12 % (0-10); % SEGS 80 % (35-66)
[2018-04-04 06:24] LABS: PLT ESTIMATE ADEQUATE (ADEQUATE)
[2018-04-04 07:00] VITALS: BP 143/67
[2018-04-04] MEDS: INSULIN LISPRO 300 UNITS/3 ML INSULN.PEN. SQ SCH ×3 (08:00→17:00)
--- NOTE | 2018-04-04 08:56 | PDOC ---
SURGICAL PROGRESS NOTE Subjective Pt sitting up in chair, pain controlled, no flatus or stool Vital Signs Vital Signs Date Time Temp Pulse Resp B/P (MAP) Pulse Ox O2 Delivery O2 Flow Rate FiO2 04/04/18 07:00 97.4 83 18 143/67 (92) 92 Room Air 97.4 04/04/18 03:00 2.0 I&O Intake and Output 04/04/18 07:00 Intake Total 3208 ml Output Total 725 ml Balance 2483 ml Intake Oral 0 ml Blood Product IV Normal Saline Flush 3208 ml Output Urine Total 575 ml Gastric Drainage Total 150 ml Drainage Total 0 ml PATIENT HAS A ENRIQUE: Yes (d/c today) General: Alert, Oriented X3, Cooperative, No acute distress Abdomen: Soft, No tenderness, Other (drain with serosang drainage) Labs Laboratory Tests Test 04/02/18 17:06 04/02/18 23:04 04/03/18 06:05 04/03/18 08:03 Glucose (Fingerstick) 153 mg/dL (70-99) 159 mg/dL (70-99) 178 mg/dL (70-99) White Blood Count 28.4 x10^3/uL (4.0-11.0) Red Blood Count 4.38 x10^6/uL (4.30-5.70) Hemoglobin 13.9 g/dL (13.0-17.5) Hematocrit 40.9 % (39.0-53.0) Mean Corpuscular Volume 93 fL (79-100) Mean Corpuscular Hemoglobin 32 pg (25-35) Mean Corpuscular Hemoglobin Concent 34 g/dL (31-37) Red Cell Distribution Width 13.8 % (11.5-14.5) Platelet Count 239 x10^3/uL (140-400) Neutrophils (%) (Auto) 82 % (31-73) Lymphocytes (%) (Auto) 4 % (24-48) Monocytes (%) (Auto) 13 % (0-9) Eosinophils (%) (Auto) 0 % (0-3) Basophils (%) (Auto) 0 % (0-3) Neutrophils # (Auto) 23.4 x10^3uL (1.8-7.7) Lymphocytes # (Auto) 1.1 x10^3/uL (1.0-4.8) Monocytes # (Auto) 3.8 x10^3/uL (0.0-1.1) Eosinophils # (Auto) 0.0 x10^3/uL (0.0-0.7) Basophils # (Auto) 0.0 x10^3/uL (0.0-0.2) Segmented Neutrophils % 80 % (35-66) Band Neutrophils % 7 % (0-9) Lymphocytes % 5 % (24-48) Monocytes % 8 % (0-10) Platelet Estimate Adequate (ADEQUATE) Test 04/03/18 11:35 04/03/18 14:51 04/03/18 22:53 04/04/18 03:50 Glucose (Fingerstick) 171 mg/dL (70-99) 147 mg/dL (70-99) 145 mg/dL (70-99) White Blood Count 34.1 x10^3/uL (4.0-11.0) Red Blood Count 3.89 x10^6/uL (4.30-5.70) Hemoglobin 12.3 g/dL (13.0-17.5) Hematocrit 36.5 % (39.0-53.0) Mean Corpuscular Volume 94 fL (79-100) Mean Corpuscular Hemoglobin 32 pg (25-35) Mean Corpuscular Hemoglobin Concent 34 g/dL (31-37) Red Cell Distribution Width 14.0 % (11.5-14.5) Platelet Count 246 x10^3/uL (140-400) Neutrophils (%) (Auto) 82 % (31-73) Lymphocytes (%) (Auto) 5 % (24-48) Monocytes (%) (Auto) 13 % (0-9) Eosinophils (%) (Auto) 0 % (0-3) Basophils (%) (Auto) 0 % (0-3) Neutrophils # (Auto) 27.8 x10^3uL (1.8-7.7) Lymphocytes # (Auto) 1.6 x10^3/uL (1.0-4.8) Monocytes # (Auto) 4.6 x10^3/uL (0.0-1.1) Eosinophils # (Auto) 0.0 x10^3/uL (0.0-0.7) Basophils # (Auto) 0.1 x10^3/uL (0.0-0.2) Segmented Neutrophils % 80 % (35-66) Band Neutrophils % 5 % (0-9) Lymphocytes % 3 % (24-48) Monocytes % 12 % (0-10) Platelet Estimate Adequate (ADEQUATE) Sodium Level 137 mmol/L (136-145) Potassium Level 4.5 mmol/L (3.5-5.1) Chloride Level 104 mmol/L (98-107) Carbon Dioxide Level 28 mmol/L (21-32) Anion Gap 5 (6-14) Blood Urea Nitrogen 31 mg/dL (8-26) Creatinine 1.7 mg/dL (0.7-1.3) Estimated GFR (Cockcroft-Gault) 44.4 Glucose Level 144 mg/dL (70-99) Calcium Level 8.6 mg/dL (8.5-10.1) Laboratory Tests Test 04/03/18 11:35 04/03/18 14:51 04/03/18 22:53 04/04/18 03:50 Glucose (Fingerstick) 171 mg/dL (70-99) 147 mg/dL (70-99) 145 mg/dL (70-99) White Blood Count 34.1 x10^3/uL (4.0-11.0) Red Blood Count 3.89 x10^6/uL (4.30-5.70) Hemoglobin 12.3 g/dL (13.0-17.5) Hematocrit 36.5 % (39.0-53.0) Mean Corpuscular Volume 94 fL (79-100) Mean Corpuscular Hemoglobin 32 pg (25-35) Mean Corpuscular Hemoglobin Concent 34 g/dL (31-37) Red Cell Distribution Width 14.0 % (11.5-14.5) Platelet Count 246 x10^3/uL (140-400) Neutrophils (%) (Auto) 82 % (31-73) Lymphocytes (%) (Auto) 5 % (24-48) Monocytes (%) (Auto) 13 % (0-9) Eosinophils (%) (Auto) 0 % (0-3) Basophils (%) (Auto) 0 % (0-3) Neutrophils # (Auto) 27.8 x10^3uL (1.8-7.7) Lymphocytes # (Auto) 1.6 x10^3/uL (1.0-4.8) Monocytes # (Auto) 4.6 x10^3/uL (0.0-1.1) Eosinophils # (Auto) 0.0 x10^3/uL (0.0-0.7) Basophils # (Auto) 0.1 x10^3/uL (0.0-0.2) Segmented Neutrophils % 80 % (35-66) Band Neutrophils % 5 % (0-9) Lymphocytes % 3 % (24-48) Monocytes % 12 % (0-10) Platelet Estimate Adequate (ADEQUATE) Sodium Level 137 mmol/L (136-145) Potassium Level 4.5 mmol/L (3.5-5.1) Chloride Level 104 mmol/L (98-107) Carbon Dioxide Level 28 mmol/L (21-32) Anion Gap 5 (6-14) Blood Urea Nitrogen 31 mg/dL (8-26) Creatinine 1.7 mg/dL (0.7-1.3) Estimated GFR (Cockcroft-Gault) 44.4 Glucose Level 144 mg/dL (70-99) Calcium Level 8.6 mg/dL (8.5-10.1) Problem List s/p xlap cont NGT HR and UOP improved with bolus, d/c [facility] hospitalist for glu control cr 1.7, pt is s/p nephrectomy WBC abnormally elevated, but suspect secondary to splenectomy, no bands, monitor RENETTA LAMBERT MD Apr 04, 2018 08:56
[2018-04-04] MEDS: IV RINGERS,LACTATED 1000ML 1,000 ML IV SCH ×3 (10:40→21:17)
[2018-04-04 10:50] VITALS: BP 142/67
[2018-04-04] MEDS: HEPARIN PF for SUB-Q USE 5,000 UNIT/0.5 ML VIAL. SQ SCH ×2 (10:51→21:25)
--- NOTE | 2018-04-04 11:23 | PDOC ---
PROGRESS NOTES Chief Complaint Chief Complaint History of Present Illness Reason for Visit: 42yo m, H/O RT kidney Ca s/p removal , kidney stone on allopurinol and hctz, s/p sx for pancreatic cyst. as per dr. Lee, the pancreatic cyst large , concerned about malignancy ,for which pt underwent lap changed to open abd sx , Laparoscopic cholecystectomy with cholangiogram, liver biopsy, lysis of adhesion, small bowel biopsy, distal pancreatectomy and splenectomy. ANDREY drain. WILL CONSULT Nephrology gi consult Vitals Vitals Vital Signs Date Time Temp Pulse Resp B/P (MAP) Pulse Ox O2 Delivery O2 Flow Rate FiO2 04/04/18 10:50 98.5 72 18 142/67 (92) 94 Room Air 98.5 04/04/18 03:00 2.0 Physical Exam General: Alert, Oriented X3, Cooperative, No acute distress, mild distress Heart: Regular rate, Normal S1, Normal S2 Lungs: Clear Abdomen: Soft, No tenderness, Other (DRESSINGS DRY) Extremities: No clubbing, No cyanosis, No edema Skin: No rashes, No breakdown Labs LABS Laboratory Tests Test 04/03/18 11:35 04/03/18 14:51 04/03/18 22:53 04/04/18 03:50 Glucose (Fingerstick) 171 mg/dL (70-99) 147 mg/dL (70-99) 145 mg/dL (70-99) White Blood Count 34.1 x10^3/uL (4.0-11.0) Red Blood Count 3.89 x10^6/uL (4.30-5.70) Hemoglobin 12.3 g/dL (13.0-17.5) Hematocrit 36.5 % (39.0-53.0) Mean Corpuscular Volume 94 fL (79-100) Mean Corpuscular Hemoglobin 32 pg (25-35) Mean Corpuscular Hemoglobin Concent 34 g/dL (31-37) Red Cell Distribution Width 14.0 % (11.5-14.5) Platelet Count 246 x10^3/uL (140-400) Neutrophils (%) (Auto) 82 % (31-73) Lymphocytes (%) (Auto) 5 % (24-48) Monocytes (%) (Auto) 13 % (0-9) Eosinophils (%) (Auto) 0 % (0-3) Basophils (%) (Auto) 0 % (0-3) Neutrophils # (Auto) 27.8 x10^3uL (1.8-7.7) Lymphocytes # (Auto) 1.6 x10^3/uL (1.0-4.8) Monocytes # (Auto) 4.6 x10^3/uL (0.0-1.1) Eosinophils # (Auto) 0.0 x10^3/uL (0.0-0.7) Basophils # (Auto) 0.1 x10^3/uL (0.0-0.2) Segmented Neutrophils % 80 % (35-66) Band Neutrophils % 5 % (0-9) Lymphocytes % 3 % (24-48) Monocytes % 12 % (0-10) Platelet Estimate Adequate (ADEQUATE) Sodium Level 137 mmol/L (136-145) Potassium Level 4.5 mmol/L (3.5-5.1) Chloride Level 104 mmol/L (98-107) Carbon Dioxide Level 28 mmol/L (21-32) Anion Gap 5 (6-14) Blood Urea Nitrogen 31 mg/dL (8-26) Creatinine 1.7 mg/dL (0.7-1.3) Estimated GFR (Cockcroft-Gault) 44.4 Glucose Level 144 mg/dL (70-99) Calcium Level 8.6 mg/dL (8.5-10.1) Test 04/04/18 08:59 Glucose (Fingerstick) 137 mg/dL (70-99) Comment Review of Relevant I have reviewed the following items gladys (where applicable) has been applied. Labs Laboratory Tests Test 04/02/18 17:06 04/02/18 23:04 04/03/18 06:05 04/03/18 08:03 Glucose (Fingerstick) 153 mg/dL (70-99) 159 mg/dL (70-99) 178 mg/dL (70-99) White Blood Count 28.4 x10^3/uL (4.0-11.0) Red Blood Count 4.38 x10^6/uL (4.30-5.70) Hemoglobin 13.9 g/dL (13.0-17.5) Hematocrit 40.9 % (39.0-53.0) Mean Corpuscular Volume 93 fL (79-100) Mean Corpuscular Hemoglobin 32 pg (25-35) Mean Corpuscular Hemoglobin Concent 34 g/dL (31-37) Red Cell Distribution Width 13.8 % (11.5-14.5) Platelet Count 239 x10^3/uL (140-400) Neutrophils (%) (Auto) 82 % (31-73) Lymphocytes (%) (Auto) 4 % (24-48) Monocytes (%) (Auto) 13 % (0-9) Eosinophils (%) (Auto) 0 % (0-3) Basophils (%) (Auto) 0 % (0-3) Neutrophils # (Auto) 23.4 x10^3uL (1.8-7.7) Lymphocytes # (Auto) 1.1 x10^3/uL (1.0-4.8) Monocytes # (Auto) 3.8 x10^3/uL (0.0-1.1) Eosinophils # (Auto) 0.0 x10^3/uL (0.0-0.7) Basophils # (Auto) 0.0 x10^3/uL (0.0-0.2) Segmented Neutrophils % 80 % (35-66) Band Neutrophils % 7 % (0-9) Lymphocytes % 5 % (24-48) Monocytes % 8 % (0-10) Platelet Estimate Adequate (ADEQUATE) Test 04/03/18 11:35 04/03/18 14:51 04/03/18 22:53 04/04/18 03:50 Glucose (Fingerstick) 171 mg/dL (70-99) 147 mg/dL (70-99) 145 mg/dL (70-99) White Blood Count 34.1 x10^3/uL (4.0-11.0) Red Blood Count 3.89 x10^6/uL (4.30-5.70) Hemoglobin 12.3 g/dL (13.0-17.5) Hematocrit 36.5 % (39.0-53.0) Mean Corpuscular Volume 94 fL (79-100) Mean Corpuscular Hemoglobin 32 pg (25-35) Mean Corpuscular Hemoglobin Concent 34 g/dL (31-37) Red Cell Distribution Width 14.0 % (11.5-14.5) Platelet Count 246 x10^3/uL (140-400) Neutrophils (%) (Auto) 82 % (31-73) Lymphocytes (%) (Auto) 5 % (24-48) Monocytes (%) (Auto) 13 % (0-9) Eosinophils (%) (Auto) 0 % (0-3) Basophils (%) (Auto) 0 % (0-3) Neutrophils # (Auto) 27.8 x10^3uL (1.8-7.7) Lymphocytes # (Auto) 1.6 x10^3/uL (1.0-4.8) Monocytes # (Auto) 4.6 x10^3/uL (0.0-1.1) Eosinophils # (Auto) 0.0 x10^3/uL (0.0-0.7) Basophils # (Auto) 0.1 x10^3/uL (0.0-0.2) Segmented Neutrophils % 80 % (35-66) Band Neutrophils % 5 % (0-9) Lymphocytes % 3 % (24-48) Monocytes % 12 % (0-10) Platelet Estimate Adequate (ADEQUATE) Sodium Level 137 mmol/L (136-145) Potassium Level 4.5 mmol/L (3.5-5.1) Chloride Level 104 mmol/L (98-107) Carbon Dioxide Level 28 mmol/L (21-32) Anion Gap 5 (6-14) Blood Urea Nitrogen 31 mg/dL (8-26) Creatinine 1.7 mg/dL (0.7-1.3) Estimated GFR (Cockcroft-Gault) 44.4 Glucose Level 144 mg/dL (70-99) Calcium Level 8.6 mg/dL (8.5-10.1) Test 04/04/18 08:59 Glucose (Fingerstick) 137 mg/dL (70-99) Laboratory Tests Test 04/03/18 11:35 04/03/18 14:51 04/03/18 22:53 04/04/18 03:50 Glucose (Fingerstick) 171 mg/dL (70-99) 147 mg/dL (70-99) 145 mg/dL (70-99) White Blood Count 34.1 x10^3/uL (4.0-11.0) Red Blood Count 3.89 x10^6/uL (4.30-5.70) Hemoglobin 12.3 g/dL (13.0-17.5) Hematocrit 36.5 % (39.0-53.0) Mean Corpuscular Volume 94 fL (79-100) Mean Corpuscular Hemoglobin 32 pg (25-35) Mean Corpuscular Hemoglobin Concent 34 g/dL (31-37) Red Cell Distribution Width 14.0 % (11.5-14.5) Platelet Count 246 x10^3/uL (140-400) Neutrophils (%) (Auto) 82 % (31-73) Lymphocytes (%) (Auto) 5 % (24-48) Monocytes (%) (Auto) 13 % (0-9) Eosinophils (%) (Auto) 0 % (0-3) Basophils (%) (Auto) 0 % (0-3) Neutrophils # (Auto) 27.8 x10^3uL (1.8-7.7) Lymphocytes # (Auto) 1.6 x10^3/uL (1.0-4.8) Monocytes # (Auto) 4.6 x10^3/uL (0.0-1.1) Eosinophils # (Auto) 0.0 x10^3/uL (0.0-0.7) Basophils # (Auto) 0.1 x10^3/uL (0.0-0.2) Segmented Neutrophils % 80 % (35-66) Band Neutrophils % 5 % (0-9) Lymphocytes % 3 % (24-48) Monocytes % 12 % (0-10) Platelet Estimate Adequate (ADEQUATE) Sodium Level 137 mmol/L (136-145) Potassium Level 4.5 mmol/L (3.5-5.1) Chloride Level 104 mmol/L (98-107) Carbon Dioxide Level 28 mmol/L (21-32) Anion Gap 5 (6-14) Blood Urea Nitrogen 31 mg/dL (8-26) Creatinine 1.7 mg/dL (0.7-1.3) Estimated GFR (Cockcroft-Gault) 44.4 Glucose Level 144 mg/dL (70-99) Calcium Level 8.6 mg/dL (8.5-10.1) Test 04/04/18 08:59 Glucose (Fingerstick) 137 mg/dL (70-99) Medications Current Medications Heparin Sodium (Porcine) 1000 unit/Sodium Chloride 1,001 ml @ 1,001 mls/hr 1X ONCE IRR ; Start 04/02/18 at 06:00; Stop 04/02/18 at 06:59; Status DC Cefazolin Sodium/ Dextrose 50 ml @ 100 mls/hr 1X PREOP PRN IV PRIOR TO PROCEDURE Last administered on 04/02/18at 08:43; Start 04/02/18 at 06:00; Stop 04/02 at 18:00; Status DC Ondansetron HCl (Zofran) 4 mg PRN Q6HRS PRN IV NAUSEA/VOMITING Last administered on 04/02/18at 17:33; Start 04/02/18 at 07:00; Stop 04/03/18 at 06:59; Status DC Fentanyl Citrate (Fentanyl 2ml Vial) 25 mcg PRN Q5MIN PRN IV MILD PAIN; Start 04/02/18 at 07:00; Stop 04/03/18 at 06:59; Status DC Fentanyl Citrate (Fentanyl 2ml Vial) 50 mcg PRN Q5MIN PRN IV MODERATE TO SEVERE PAIN; Start 04/02/18 at 07:00; Stop 04/03/18 at 06:59; Status DC Morphine Sulfate (Morphine Sulfate) 1 mg PRN Q10MIN PRN IV SEVERE PAIN; Start 04/02/18 at 07:00; Stop 04/03/18 at 06:59; Status DC Ringer's Solution 1,000 ml @ 30 mls/hr Q24H IV Last administered on 04/02/18at 07:00; Start 04/02/18 at 07:00; Stop 04/02/18 at 18:59; Status DC Lidocaine HCl (Xylocaine-Mpf 1% 2ml Vial) 2 ml PRN 1X PRN ID IV START; Start at 07:00; Stop 04/03/18 at 06:59; Status DC Hydromorphone HCl (Dilaudid) 0.5 mg PRN Q10MIN PRN IV SEV PAIN, Second choice; Start 04/02/18 at 07:00; Stop 04/03/18 at 06:59; Status DC Prochlorperazine Edisylate (Compazine) 5 mg PACU PRN PRN IV NAUSEA, MRX1; Start 04/02/18 at 07:00; Stop 04/03/18 at 06:59; Status DC Bupivacaine HCl/ Epinephrine Bitart (Marcaine-Epi 0.5%-1:[id number]) 50 ml STK-MED ONCE .ROUTE Last administered on 04/02/18at 09:00; Start 04/02/18 at 05:50; Stop 04/02/18 at 06:50; Status DC Cellulose (Surgicel Hemostat 2x3) 1 each STK-MED ONCE .ROUTE ; Start 04/02/18 at 05:50; Stop 04/02/18 at 06:50; Status DC Iohexol (Omnipaque 300 Mg/ml) 100 ml STK-MED ONCE .ROUTE ; Start 04/02/18 at 05: 50; Stop 04/02/18 at 06:50; Status DC Bisacodyl (Dulcolax Supp) 10 mg STK-MED ONCE .ROUTE ; Start 04/02/18 at 05:50; Stop 04/02/18 at 06:51; Status DC Bupivacaine HCl/ Epinephrine Bitart (Marcaine-Epi 0.5%-1:[id number]) 50 ml STK-MED ONCE .ROUTE ; Start 04/02/18 at 06:10; Stop 04/02/18 at 07:11; Status DC Cellulose (Surgicel Hemostat 2x3) 1 each STK-MED ONCE .ROUTE ; Start 04/02/18 at 06:10; Stop 04/02/18 at 07:11; Status DC Bisacodyl (Dulcolax Supp) 10 mg STK-MED ONCE .ROUTE ; Start 04/02/18 at 06:10; Stop 04/02/18 at 07:11; Status DC Iohexol (Omnipaque 300 Mg/ml) 100 ml STK-MED ONCE .ROUTE ; Start 04/02/18 at 06: 11; Stop 04/02/18 at 07:12; Status DC Lidocaine HCl (Xylocaine-Mpf 2% Vial) 2 ml STK-MED ONCE .ROUTE ; Start 04/02/18 at 07:30; Stop 04/02/18 at 07:31; Status DC Propofol 20 ml @ As Directed STK-MED ONCE IV ; Start 04/02/18 at 07:32; Stop 04/02 at 07:33; Status DC Lidocaine HCl (Xylocaine-Mpf 1% 5ml Vial) 5 ml STK-MED ONCE .ROUTE ; Start at 07:32; Stop 04/02/18 at 07:33; Status DC Rocuronium Playas (Zemuron) 100 mg STK-MED ONCE .ROUTE ; Start 04/02/18 at 07:32 ; Stop 04/02/18 at 07:33; Status DC Fentanyl Citrate (Fentanyl 5ml Vial) 250 mcg STK-MED ONCE .ROUTE ; Start at 07:33; Stop 04/02/18 at 07:34; Status DC Dexamethasone Sodium Phosphate (Decadron) 20 mg STK-MED ONCE .ROUTE ; Start 04/02 at 08:42; Stop 04/02/18 at 08:43; Status DC Ephedrine Sulfate (ePHEDrine PF IN SALINE SYRINGE) 50 mg STK-MED ONCE IV ; Start 04/02/18 at 08:42; Stop 04/02/18 at 08:43; Status DC Sodium Chloride 38.4 ml/Fentanyl Citrate 250 mcg/ Ropivacaine 10 ml/ Epidural Dosage Infused (Pha) 53.4 ml @ 0 mls/hr CONT PRN EP SEE PROTOCOL TABLE Last administered on 04/04/18at 06:38; Start 04/02/18 at 09:00 Naloxone HCl (Narcan) 0.1 mg PRN 1X PRN IV RESP DEPRESSION, MRX1; Start at 09:00 Bupivacaine HCl (Sensorcaine Mpf 0.25%) 30 ml STK-MED ONCE .ROUTE ; Start at 08:53; Stop 04/02/18 at 08:54; Status DC Famotidine (Pepcid Vial) 20 mg STK-MED ONCE .ROUTE ; Start 04/02/18 at 08:58; Stop 04/02/18 at 08:59; Status DC Hydrocortisone Sodium Succinate (Solu-CORTEF) 100 mg STK-MED ONCE .ROUTE ; Start 04/02/18 at 08:58; Stop 04/02/18 at 08:59; Status DC Diphenhydramine HCl (Benadryl) 50 mg STK-MED ONCE .ROUTE ; Start 04/02/18 at 08: 58; Stop 04/02/18 at 08:59; Status DC Metronidazole 200 ml @ 200 mls/hr 1X ONCE IV Last administered on 04/02/18at 09 :11; Start 04/02/18 at 09:15; Stop 04/02/18 at 10:14; Status DC Desflurane (Suprane) 90 ml STK-MED ONCE IH ; Start 04/02/18 at 09:21; Stop at 09:22; Status DC Glycopyrrolate (Robinul) 1 mg STK-MED ONCE .ROUTE ; Start 04/02/18 at 10:29; Stop 04/02/18 at 10:30; Status DC Neostigmine Methylsulfate (Neostigmine Methylsulfate) 5 mg STK-MED ONCE .ROUTE ; Start 04/02/18 at 10:29; Stop 04/02/18 at 10:30; Status DC Ondansetron HCl (Zofran) 4 mg STK-MED ONCE .ROUTE ; Start 04/02/18 at 10:30; Stop 04/02/18 at 10:31; Status DC Phenylephrine HCl (PHENYLEPHRINE in 0.9% NACL PF) 1 mg STK-MED ONCE IV ; Start 04/02/18 at 11:54; Stop 04/02/18 at 11:55; Status DC Cellulose (Surgicel Hemostat 4x8) 1 each STK-MED ONCE .ROUTE Last administered on 04/02/18at 12:00; Start 04/02/18 at 10:58; Stop 04/02/18 at 11:58; Status DC Sodium Chloride (Normal Saline Flush) 3 ml QSHIFT PRN IV AFTER MEDS AND BLOOD DRAWS; Start 04/02/18 at 13:45 Ringer's Solution 1,000 ml @ 125 mls/hr Q8H IV Last administered on 04/03/18at 14:47; Start 04/02/18 at 14:00 Ondansetron HCl (Zofran) 4 mg PRN Q6HRS PRN IV NAUESA, 1ST CHOICE Last administered on 04/04/18at 06:17; Start 04/02/18 at 13:45 Heparin Sodium (Porcine) (Heparin Sq) 5,000 unit Q12HR SQ Last administered on 04/04/18at 10:51; Start 04/03/18 at 09:00 Throat Lozenges (Chloraseptic) 1 spray PRN Q2HR PRN PO SORE THROAT; Start at 05:45 Dextrose (Dextrose 50%-Water Syringe) 12.5 gm PRN Q15MIN PRN IV SEE COMMENTS; Start 04/03/18 at 08:00 Ringer's Solution 500 ml @ 500 mls/hr 1X ONCE IV Last administered on at 11:30; Start 04/03/18 at 11:30; Stop 04/03/18 at 12:29; Status DC Insulin Human Lispro (HumaLOG) 0-5 UNITS TIDWMEALS SQ ; Start 04/03/18 at 17:00 Dextrose (Dextrose 50%-Water Syringe) 12.5 gm PRN Q15MIN PRN IV SEE COMMENTS; Start 04/03/18 at 13:30; Status UNV Famotidine (Pepcid Vial) 20 mg QHS IVP Last administered on 04/03/18at 21:00; Start 04/03/18 at 21:00 Active Scripts Active Reported Multivitamins (Multivitamin) 1 Each Tablet 1 Tab PO DAILY Zyrtec (Cetirizine Hcl) 10 Mg Tablet 1 Tab PO DAILY Hydrochlorothiazide Tablet (Hydrochlorothiazide) 25 Mg Tablet 25 Mg PO DAILY Ranitidine Hcl 150 Mg Capsule 150 Mg PO DAILY Allopurinol 100 Mg Tablet 100 Mg PO DAILY Vitals/I & O Vital Sign - Last 24 Hours 04/03/18 04/03/18 04/03/18 04/03/18 14:46 14:59 19:00 20:00 Temp 98.4 97.5 98.4 97.5 Pulse 83 89 Resp 19 18 B/P (MAP) 115/69 (84) 151/71 (97) Pulse Ox 99 97 O2 Delivery Nasal Cannula Nasal Cannula Nasal Cannula Nasal Cannula O2 Flow Rate 2.0 2.0 04/03/18 04/03/18 04/04/18 04/04/18 20:10 23:00 03:00 06:38 Temp 97.7 98.6 97.7 98.6 Pulse 89 85 Resp 24 18 20 B/P (MAP) 156/77 (103) 145/71 (95) Pulse Ox 94 94 O2 Delivery Nasal Cannula Nasal Cannula O2 Flow Rate 2.0 2.0 04/04/18 04/04/18 07:00 10:50 Temp 97.4 98.5 97.4 98.5 Pulse 83 72 Resp 18 18 B/P (MAP) 143/67 (92) 142/67 (92) Pulse Ox 92 94 O2 Delivery Room Air Room Air Intake and Output 04/03/18 04/03/18 04/04/18 15:00 23:00 07:00 Intake Total 0 ml 3208 ml Output Total 725 ml Balance -725 ml 3208 ml ARIANNE MONTES MD Apr 04, 2018 11:23
--- NOTE | 2018-04-04 13:58 | PDOC2 ---
GI CONSULT Reason For Consult: post-op pseudocyst excision HPI: HPI: 42 y/o male w/ h/o LUQ pain and intermittent jaundice. About 3 years ago had "pancreatitis" (unclear cause) w/ imaging that demonstrated pancreatic cysts in the body and tail. He underwent EGD and colonoscopy @ [place] by Dr. Tello and was then referred to Dr. Spangler. He has labs to monitor LFTs every 6 months and was told he had fatty liver. Labs on 03/05 (included in chart) showed bili 1.1, AST 38, ALT 72, Alk Phos 160. Cysts were monitored w/ interval CTs and he also underwent EUS w/ biopsy (no obvious malignancy). Due to gradual increase in size, surgical resection was recommended. He is now s/p cholecystectomy, liver biopsy, DOUGLAS, small bowel biopsy, and distal pancreatectomy and splenectomy on 04/02/[address] Goldberg. He also has a h/o GERD controlled w/ ranitidine 150mg QD. No dysphagia or bleeding. Typically no issues w/ n/v, diarrhea, or constipation, though he family (including his who is an RN) reports that his "bowels have trouble waking up after surgery." He has apparently received Reglan for this in the past. He still has NGT and denies flatus. NSAID use less than twice monthly for muscle aches. PMH: PMH: GERD, fatty liver, JASMEET, gout, nephrolithiasis, appendectomy, removal of right kidney mass, right nephrectomy, lithotripsy, CTR FH: Family History: Cancer (aunt - colon, brother - testicular), CAD, CVA, DM, Hypertension Social History: Smoke: No ALCOHOL: none Drugs: None ROS: GEN: Denies fevers, chills, sweats HEENT: Denies blurred vision, sore throat CV: Denies chest pain RESP: Denies shortness of air, cough GI: Per HPI : Denies hematuria, dysuria ENDO: Denies weight changes NEURO: Denies confusion, dizziness MSK: Denies weakness, joint pain/swelling SKIN: Denies jaundice, pruritus Vitals: Vitals: Vital Signs Date Time Temp Pulse Resp B/P (MAP) Pulse Ox O2 Delivery O2 Flow Rate FiO2 04/04/18 12:23 16 Room Air 04/04/18 10:50 98.5 72 142/67 (92) 94 98.5 04/04/18 08:00 2.0 Labs: Labs: Laboratory Tests Test 04/03/18 14:51 04/03/18 22:53 04/04/18 03:50 04/04/18 08:59 Glucose (Fingerstick) 147 mg/dL (70-99) 145 mg/dL (70-99) 137 mg/dL (70-99) White Blood Count 34.1 x10^3/uL (4.0-11.0) Red Blood Count 3.89 x10^6/uL (4.30-5.70) Hemoglobin 12.3 g/dL (13.0-17.5) Hematocrit 36.5 % (39.0-53.0) Mean Corpuscular Volume 94 fL (79-100) Mean Corpuscular Hemoglobin 32 pg (25-35) Mean Corpuscular Hemoglobin Concent 34 g/dL (31-37) Red Cell Distribution Width 14.0 % (11.5-14.5) Platelet Count 246 x10^3/uL (140-400) Neutrophils (%) (Auto) 82 % (31-73) Lymphocytes (%) (Auto) 5 % (24-48) Monocytes (%) (Auto) 13 % (0-9) Eosinophils (%) (Auto) 0 % (0-3) Basophils (%) (Auto) 0 % (0-3) Neutrophils # (Auto) 27.8 x10^3uL (1.8-7.7) Lymphocytes # (Auto) 1.6 x10^3/uL (1.0-4.8) Monocytes # (Auto) 4.6 x10^3/uL (0.0-1.1) Eosinophils # (Auto) 0.0 x10^3/uL (0.0-0.7) Basophils # (Auto) 0.1 x10^3/uL (0.0-0.2) Segmented Neutrophils % 80 % (35-66) Band Neutrophils % 5 % (0-9) Lymphocytes % 3 % (24-48) Monocytes % 12 % (0-10) Platelet Estimate Adequate (ADEQUATE) Sodium Level 137 mmol/L (136-145) Potassium Level 4.5 mmol/L (3.5-5.1) Chloride Level 104 mmol/L (98-107) Carbon Dioxide Level 28 mmol/L (21-32) Anion Gap 5 (6-14) Blood Urea Nitrogen 31 mg/dL (8-26) Creatinine 1.7 mg/dL (0.7-1.3) Estimated GFR (Cockcroft-Gault) 44.4 Glucose Level 144 mg/dL (70-99) Calcium Level 8.6 mg/dL (8.5-10.1) Allergies: Coded Allergies: Iodinated Contrast- Oral and IV Dye (Verified Allergy, Intermediate, Hives , 03/28/18) egg (Verified Adverse Reaction, Intermediate, Nausea and Vomiting, 04/01/18) Medications: Current Medications Medications (Trade) Dose Ordered Sig/[place] Route PRN Reason Start Time Stop Time Status Last Admin Dose Admin Famotidine (Pepcid Vial) 20 mg QHS IVP 04/03/18 21:00 04/03/18 21:00 Imaging: Imaging: KUB 04/02/18 HISTORY: Postop evaluation The abdominal gas pattern is unremarkable. There is no evidence of a retained surgical instrument, needle or radiopaque sponge on this single view. Cholangiogram IMPRESSION: No significant abnormality is detected. PE: GEN: NAD, obese HEENT: +NGT to suction LUNGS: CTAB HEART: RRR ABD: quiet, tender, drain w/ dark fluid EXTREMITY: No edema SKIN: No rashes, no jaundice NEURO/PSYCH: A & O 3 A/P: A/P: Pancreatic cysts, fatty liver S/p cholecystectomy, liver biopsy, DOUGLAS, small bowel biopsy, distal pancreatectomy, splenectomy GERD - on H2 shahid, past EGD by Dr. Tello CRC screen - reports normal past colonoscopy -- Family concerned w/ what seems to be post-op ileus in the past. 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 Continue per Dr. Goldberg and await pathology. Will review additional GI recs w/ Dr. Flores. SHADE FRIAS Apr 04, 2018 13:58
[2018-04-04 15:00] VITALS: BP 145/80
--- NOTE | 2018-04-04 15:19 | PDOC2 ---
CONSULT Date of Consult Date of Consult DATE: 04/04/18 TIME: 15:10 Reason for Consult Reason for Consult: Renal failure Identification/Chief Complaint Chief Complaint Pain over the surgery site Source Source: Chart review, Patient History of Present Illness Reason for Visit: Pt is 42yo Cm, H/O RCC s/p Rt nephrectomy kidney stones on allopurinol and hctz , was seen by GS with episodic jaundice, slow increasing in size pancreatic cyst. Underwent Surgery for pancreatic cyst,As per GS - the pancreatic cyst was big , and concerned about malignancy ,for which he underwent lap changed to open abd sx , Laparoscopic cholecystectomy with cholangiogram, liver biopsy, lysis of adhesion, small bowel biopsy, distal pancreatectomy and splenectomy. Denies any CP, SOB, No F/C . He reports the dial was removed nd he is having good UOP. Denies any dysuria. His , whos a Nurse is on the phone. She reports that he was Dx with RCC - On CT sca Renal mass - CT was done with suspicion of GB concerns. Initially partial nephrectomy but was changed to Total Denies taking NSAID's. His baseline Creat has never been above 1.2-1.3 Family History Family History: Hypertension Social History No ALCOHOL: none Drugs: None Lives: with Family Domestic Violence: Neg Current Medications Current Medications Current Medications Heparin Sodium (Porcine) 1000 unit/Sodium Chloride 1,001 ml @ 1,001 mls/hr 1X ONCE IRR ; Start 04/02/18 at 06:00; Stop 04/02/18 at 06:59; Status DC Cefazolin Sodium/ Dextrose 50 ml @ 100 mls/hr 1X PREOP PRN IV PRIOR TO PROCEDURE Last administered on 04/02/18at 08:43; Start 04/02/18 at 06:00; Stop 04/02 at 18:00; Status DC Ondansetron HCl (Zofran) 4 mg PRN Q6HRS PRN IV NAUSEA/VOMITING Last administered on 04/02/18at 17:33; Start 04/02/18 at 07:00; Stop 04/03/18 at 06:59; Status DC Fentanyl Citrate (Fentanyl 2ml Vial) 25 mcg PRN Q5MIN PRN IV MILD PAIN; Start 04/02/18 at 07:00; Stop 04/03/18 at 06:59; Status DC Fentanyl Citrate (Fentanyl 2ml Vial) 50 mcg PRN Q5MIN PRN IV MODERATE TO SEVERE PAIN; Start 04/02/18 at 07:00; Stop 04/03/18 at 06:59; Status DC Morphine Sulfate (Morphine Sulfate) 1 mg PRN Q10MIN PRN IV SEVERE PAIN; Start 04/02/18 at 07:00; Stop 04/03/18 at 06:59; Status DC Ringer's Solution 1,000 ml @ 30 mls/hr Q24H IV Last administered on 04/02/18at 07:00; Start 04/02/18 at 07:00; Stop 04/02/18 at 18:59; Status DC Lidocaine HCl (Xylocaine-Mpf 1% 2ml Vial) 2 ml PRN 1X PRN ID IV START; Start at 07:00; Stop 04/03/18 at 06:59; Status DC Hydromorphone HCl (Dilaudid) 0.5 mg PRN Q10MIN PRN IV SEV PAIN, Second choice; Start 04/02/18 at 07:00; Stop 04/03/18 at 06:59; Status DC Prochlorperazine Edisylate (Compazine) 5 mg PACU PRN PRN IV NAUSEA, MRX1; Start 04/02/18 at 07:00; Stop 04/03/18 at 06:59; Status DC Bupivacaine HCl/ Epinephrine Bitart (Marcaine-Epi 0.5%-1:[id number]) 50 ml STK-MED ONCE .ROUTE Last administered on 04/02/18at 09:00; Start 04/02/18 at 05:50; Stop 04/02/18 at 06:50; Status DC Cellulose (Surgicel Hemostat 2x3) 1 each STK-MED ONCE .ROUTE ; Start 04/02/18 at 05:50; Stop 04/02/18 at 06:50; Status DC Iohexol (Omnipaque 300 Mg/ml) 100 ml STK-MED ONCE .ROUTE ; Start 04/02/18 at 05: 50; Stop 04/02/18 at 06:50; Status DC Bisacodyl (Dulcolax Supp) 10 mg STK-MED ONCE .ROUTE ; Start 04/02/18 at 05:50; Stop 04/02/18 at 06:51; Status DC Bupivacaine HCl/ Epinephrine Bitart (Marcaine-Epi 0.5%-1:[id number]) 50 ml STK-MED ONCE .ROUTE ; Start 04/02/18 at 06:10; Stop 04/02/18 at 07:11; Status DC Cellulose (Surgicel Hemostat 2x3) 1 each STK-MED ONCE .ROUTE ; Start 04/02/18 at 06:10; Stop 04/02/18 at 07:11; Status DC Bisacodyl (Dulcolax Supp) 10 mg STK-MED ONCE .ROUTE ; Start 04/02/18 at 06:10; Stop 04/02/18 at 07:11; Status DC Iohexol (Omnipaque 300 Mg/ml) 100 ml STK-MED ONCE .ROUTE ; Start 04/02/18 at 06: 11; Stop 04/02/18 at 07:12; Status DC Lidocaine HCl (Xylocaine-Mpf 2% Vial) 2 ml STK-MED ONCE .ROUTE ; Start 04/02/18 at 07:30; Stop 04/02/18 at 07:31; Status DC Propofol 20 ml @ As Directed STK-MED ONCE IV ; Start 04/02/18 at 07:32; Stop 04/02 at 07:33; Status DC Lidocaine HCl (Xylocaine-Mpf 1% 5ml Vial) 5 ml STK-MED ONCE .ROUTE ; Start at 07:32; Stop 04/02/18 at 07:33; Status DC Rocuronium [place] (Zemuron) 100 mg STK-MED ONCE .ROUTE ; Start 04/02/18 at 07:32 ; Stop 04/02/18 at 07:33; Status DC Fentanyl Citrate (Fentanyl 5ml Vial) 250 mcg STK-MED ONCE .ROUTE ; Start at 07:33; Stop 04/02/18 at 07:34; Status DC Dexamethasone Sodium Phosphate (Decadron) 20 mg STK-MED ONCE .ROUTE ; Start 04/02 at 08:42; Stop 04/02/18 at 08:43; Status DC Ephedrine Sulfate (ePHEDrine PF IN SALINE SYRINGE) 50 mg STK-MED ONCE IV ; Start 04/02/18 at 08:42; Stop 04/02/18 at 08:43; Status DC Sodium Chloride 38.4 ml/Fentanyl Citrate 250 mcg/ Ropivacaine 10 ml/ Epidural Dosage Infused (Pha) 53.4 ml @ 0 mls/hr CONT PRN EP SEE PROTOCOL TABLE Last administered on 04/04/18at 12:23; Start 04/02/18 at 09:00 Naloxone HCl (Narcan) 0.1 mg PRN 1X PRN IV RESP DEPRESSION, MRX1; Start at 09:00 Bupivacaine HCl (Sensorcaine Mpf 0.25%) 30 ml STK-MED ONCE .ROUTE ; Start at 08:53; Stop 04/02/18 at 08:54; Status DC Famotidine (Pepcid Vial) 20 mg STK-MED ONCE .ROUTE ; Start 04/02/18 at 08:58; Stop 04/02/18 at 08:59; Status DC Hydrocortisone Sodium Succinate (Solu-CORTEF) 100 mg STK-MED ONCE .ROUTE ; Start 04/02/18 at 08:58; Stop 04/02/18 at 08:59; Status DC Diphenhydramine HCl (Benadryl) 50 mg STK-MED ONCE .ROUTE ; Start 04/02/18 at 08: 58; Stop 04/02/18 at 08:59; Status DC Metronidazole 200 ml @ 200 mls/hr 1X ONCE IV Last administered on 04/02/18at 09 :11; Start 04/02/18 at 09:15; Stop 04/02/18 at 10:14; Status DC Desflurane (Suprane) 90 ml STK-MED ONCE IH ; Start 04/02/18 at 09:21; Stop at 09:22; Status DC Glycopyrrolate (Robinul) 1 mg STK-MED ONCE .ROUTE ; Start 04/02/18 at 10:29; Stop 04/02/18 at 10:30; Status DC Neostigmine Methylsulfate (Neostigmine Methylsulfate) 5 mg STK-MED ONCE .ROUTE ; Start 04/02/18 at 10:29; Stop 04/02/18 at 10:30; Status DC Ondansetron HCl (Zofran) 4 mg STK-MED ONCE .ROUTE ; Start 04/02/18 at 10:30; Stop 04/02/18 at 10:31; Status DC Phenylephrine HCl (PHENYLEPHRINE in 0.9% NACL PF) 1 mg STK-MED ONCE IV ; Start 04/02/18 at 11:54; Stop 04/02/18 at 11:55; Status DC Cellulose (Surgicel Hemostat 4x8) 1 each STK-MED ONCE .ROUTE Last administered on 04/02/18at 12:00; Start 04/02/18 at 10:58; Stop 04/02/18 at 11:58; Status DC Sodium Chloride (Normal Saline Flush) 3 ml QSHIFT PRN IV AFTER MEDS AND BLOOD DRAWS; Start 04/02/18 at 13:45 Ringer's Solution 1,000 ml @ 125 mls/hr Q8H IV Last administered on 04/04/18at 14:04; Start 04/02/18 at 14:00 Ondansetron HCl (Zofran) 4 mg PRN Q6HRS PRN IV NAUESA, 1ST CHOICE Last administered on 04/04/18at 06:17; Start 04/02/18 at 13:45 Heparin Sodium (Porcine) (Heparin Sq) 5,000 unit Q12HR SQ Last administered on 04/04/18at 10:51; Start 04/03/18 at 09:00 Throat Lozenges (Chloraseptic) 1 spray PRN Q2HR PRN PO SORE THROAT; Start at 05:45 Dextrose (Dextrose 50%-Water Syringe) 12.5 gm PRN Q15MIN PRN IV SEE COMMENTS; Start 04/03/18 at 08:00 Ringer's Solution 500 ml @ 500 mls/hr 1X ONCE IV Last administered on at 11:30; Start 04/03/18 at 11:30; Stop 04/03/18 at 12:29; Status DC Insulin Human Lispro (HumaLOG) 0-5 UNITS TIDWMEALS SQ ; Start 04/03/18 at 17:00 Dextrose (Dextrose 50%-Water Syringe) 12.5 gm PRN Q15MIN PRN IV SEE COMMENTS; Start 04/03/18 at 13:30; Status UNV Famotidine (Pepcid Vial) 20 mg QHS IVP Last administered on 04/03/18at 21:00; Start 04/03/18 at 21:00 Active Scripts Active Reported Multivitamins (Multivitamin) 1 Each Tablet 1 Tab PO DAILY Zyrtec (Cetirizine Hcl) 10 Mg Tablet 1 Tab PO DAILY Hydrochlorothiazide Tablet (Hydrochlorothiazide) 25 Mg Tablet 25 Mg PO DAILY Ranitidine Hcl 150 Mg Capsule 150 Mg PO DAILY Allopurinol 100 Mg Tablet 100 Mg PO DAILY Allergies Allergies: Coded Allergies: Iodinated Contrast- Oral and IV Dye (Verified Allergy, Intermediate, Hives , 03/28/18) egg (Verified Adverse Reaction, Intermediate, Nausea and Vomiting, 04/01/18) ROS Review of System As per HPI Physical Exam Physical Exam General: NAD , Obese HEENT: Atraumatic, PERRLA neck Supple Lungs: Clear to auscultation Heart: Regular rate, Normal S1, Normal S2 Abdomen: Normal bowel sounds, Soft,, abd sx wound-dressing Left abd ANDREY Extremities: No LE edema Skin: No rashes, Neuro: Grossly normal - No Dial Vital Signs Vital Signs Date Time Temp Pulse Resp B/P (MAP) Pulse Ox O2 Delivery O2 Flow Rate FiO2 04/04/18 12:23 16 Room Air 04/04/18 10:50 98.5 72 142/67 (92) 94 98.5 04/04/18 08:00 2.0 Assessment & Plan NADINE- Post surgery labs Suspect ATN - Hypotensive on post surgery (Dont have labs at the time of Hospitalizations ) Good UOP, E-Lytes and acid base stable As per his his Creat has never been above 1.2-1.3 Monitor Hx of RCC s/p Rt nephrectomy Baseline Creat never above 1.2-1.3, Mostly 1.1 as per his Pancreatic cyst s/p Laparoscopic cholecystectomy,liver biopsy, lysis of adhesion , small bowel biopsy, distal pancreatectomy and splenectomy 04/02 Hx Nephrolithiasis Discussed with patient, his mom and (On Phone) Labs Labs Laboratory Tests Test 04/02/18 17:06 04/02/18 23:04 04/03/18 06:05 04/03/18 08:03 Glucose (Fingerstick) 153 mg/dL (70-99) 159 mg/dL (70-99) 178 mg/dL (70-99) White Blood Count 28.4 x10^3/uL (4.0-11.0) Red Blood Count 4.38 x10^6/uL (4.30-5.70) Hemoglobin 13.9 g/dL (13.0-17.5) Hematocrit 40.9 % (39.0-53.0) Mean Corpuscular Volume 93 fL (79-100) Mean Corpuscular Hemoglobin 32 pg (25-35) Mean Corpuscular Hemoglobin Concent 34 g/dL (31-37) Red Cell Distribution Width 13.8 % (11.5-14.5) Platelet Count 239 x10^3/uL (140-400) Neutrophils (%) (Auto) 82 % (31-73) Lymphocytes (%) (Auto) 4 % (24-48) Monocytes (%) (Auto) 13 % (0-9) Eosinophils (%) (Auto) 0 % (0-3) Basophils (%) (Auto) 0 % (0-3) Neutrophils # (Auto) 23.4 x10^3uL (1.8-7.7) Lymphocytes # (Auto) 1.1 x10^3/uL (1.0-4.8) Monocytes # (Auto) 3.8 x10^3/uL (0.0-1.1) Eosinophils # (Auto) 0.0 x10^3/uL (0.0-0.7) Basophils # (Auto) 0.0 x10^3/uL (0.0-0.2) Segmented Neutrophils % 80 % (35-66) Band Neutrophils % 7 % (0-9) Lymphocytes % 5 % (24-48) Monocytes % 8 % (0-10) Platelet Estimate Adequate (ADEQUATE) Test 04/03/18 11:35 04/03/18 14:51 04/03/18 22:53 04/04/18 03:50 Glucose (Fingerstick) 171 mg/dL (70-99) 147 mg/dL (70-99) 145 mg/dL (70-99) White Blood Count 34.1 x10^3/uL (4.0-11.0) Red Blood Count 3.89 x10^6/uL (4.30-5.70) Hemoglobin 12.3 g/dL (13.0-17.5) Hematocrit 36.5 % (39.0-53.0) Mean Corpuscular Volume 94 fL (79-100) Mean Corpuscular Hemoglobin 32 pg (25-35) Mean Corpuscular Hemoglobin Concent 34 g/dL (31-37) Red Cell Distribution Width 14.0 % (11.5-14.5) Platelet Count 246 x10^3/uL (140-400) Neutrophils (%) (Auto) 82 % (31-73) Lymphocytes (%) (Auto) 5 % (24-48) Monocytes (%) (Auto) 13 % (0-9) Eosinophils (%) (Auto) 0 % (0-3) Basophils (%) (Auto) 0 % (0-3) Neutrophils # (Auto) 27.8 x10^3uL (1.8-7.7) Lymphocytes # (Auto) 1.6 x10^3/uL (1.0-4.8) Monocytes # (Auto) 4.6 x10^3/uL (0.0-1.1) Eosinophils # (Auto) 0.0 x10^3/uL (0.0-0.7) Basophils # (Auto) 0.1 x10^3/uL (0.0-0.2) Segmented Neutrophils % 80 % (35-66) Band Neutrophils % 5 % (0-9) Lymphocytes % 3 % (24-48) Monocytes % 12 % (0-10) Platelet Estimate Adequate (ADEQUATE) Sodium Level 137 mmol/L (136-145) Potassium Level 4.5 mmol/L (3.5-5.1) Chloride Level 104 mmol/L (98-107) Carbon Dioxide Level 28 mmol/L (21-32) Anion Gap 5 (6-14) Blood Urea Nitrogen 31 mg/dL (8-26) Creatinine 1.7 mg/dL (0.7-1.3) Estimated GFR (Cockcroft-Gault) 44.4 Glucose Level 144 mg/dL (70-99) Calcium Level 8.6 mg/dL (8.5-10.1) Test 04/04/18 08:59 Glucose (Fingerstick) 137 mg/dL (70-99) Laboratory Tests Test 04/03/18 22:53 04/04/18 03:50 04/04/18 08:59 Glucose (Fingerstick) 145 mg/dL (70-99) 137 mg/dL (70-99) White Blood Count 34.1 x10^3/uL (4.0-11.0) Red Blood Count 3.89 x10^6/uL (4.30-5.70) Hemoglobin 12.3 g/dL (13.0-17.5) Hematocrit 36.5 % (39.0-53.0) Mean Corpuscular Volume 94 fL (79-100) Mean Corpuscular Hemoglobin 32 pg (25-35) Mean Corpuscular Hemoglobin Concent 34 g/dL (31-37) Red Cell Distribution Width 14.0 % (11.5-14.5) Platelet Count 246 x10^3/uL (140-400) Neutrophils (%) (Auto) 82 % (31-73) Lymphocytes (%) (Auto) 5 % (24-48) Monocytes (%) (Auto) 13 % (0-9) Eosinophils (%) (Auto) 0 % (0-3) Basophils (%) (Auto) 0 % (0-3) Neutrophils # (Auto) 27.8 x10^3uL (1.8-7.7) Lymphocytes # (Auto) 1.6 x10^3/uL (1.0-4.8) Monocytes # (Auto) 4.6 x10^3/uL (0.0-1.1) Eosinophils # (Auto) 0.0 x10^3/uL (0.0-0.7) Basophils # (Auto) 0.1 x10^3/uL (0.0-0.2) Segmented Neutrophils % 80 % (35-66) Band Neutrophils % 5 % (0-9) Lymphocytes % 3 % (24-48) Monocytes % 12 % (0-10) Platelet Estimate Adequate (ADEQUATE) Sodium Level 137 mmol/L (136-145) Potassium Level 4.5 mmol/L (3.5-5.1) Chloride Level 104 mmol/L (98-107) Carbon Dioxide Level 28 mmol/L (21-32) Anion Gap 5 (6-14) Blood Urea Nitrogen 31 mg/dL (8-26) Creatinine 1.7 mg/dL (0.7-1.3) Estimated GFR (Cockcroft-Gault) 44.4 Glucose Level 144 mg/dL (70-99) Calcium Level 8.6 mg/dL (8.5-10.1) Review All relevant outside records, renal labs, imaging studies, telemetry/EKG's were reviewed. MONIK BREWSTER MD Apr 04, 2018 15:19
[2018-04-04 19:25] VITALS: BP 135/73
[2018-04-04] MEDS: FAMOTIDINE 20 MG/2 ML VIAL IVP SCH (21:16)
[2018-04-04 23:37] VITALS: BP 151/79
[2018-04-05] MEDS: [UNRECOGNIZED DRUG - OTHER] EP PRN ×4 (00:52→19:19)
[2018-04-05] MEDS: NORMAL SALINE EP PRN ×4 (00:52→19:19)
[2018-04-05] MEDS: FENTANYL EP PRN ×4 (00:52→19:19)
[2018-04-05] MEDS: ROPIVACAINE 0.5% EP PRN ×4 (00:52→19:19)
[2018-04-05] MEDS: IV RINGERS,LACTATED 1000ML 1,000 ML IV SCH ×3 (02:40→16:11)
[2018-04-05 03:32] VITALS: BP 141/74
[2018-04-05 05:20] LABS: BASO # 0.1 x10^3/uL (0.0-0.2); BASO % 0 % (0-3); EOS # 0.1 x10^3/uL (0.0-0.7); EOS % 0 % (0-3); HEMATOCRIT 34.6 % (39.0-53.0); HEMOGLOBIN 11.4 g/dL (13.0-17.5); LYMPH # 2.4 x10^3/uL (1.0-4.8); LYMPH % 8 % (24-48); MEAN CORPUSCULAR HEMOGLOBIN 31 pg (25-35); MEAN CORPUSCULAR HGB CONC 33 g/dL (31-37); MEAN CORPUSCULAR VOLUME 94 fL (79-100); MONO # 4.7 x10^3/uL (0.0-1.1); MONO % 16 % (0-9); NEUT # 22.8 x10^3uL (1.8-7.7); NEUT % 76 % (31-73); PLATELET COUNT 291 x10^3/uL (140-400); RED BLOOD COUNT 3.67 x10^6/uL (4.30-5.70); RED CELL DISTRIBUTION WIDTH 14.1 % (11.5-14.5); WHITE BLOOD COUNT 30.1 x10^3/uL (4.0-11.0)
[2018-04-05 05:54] LABS: ALBUMIN 2.8 g/dL (3.4-5.0); ALBUMIN/GLOBULIN RATIO 0.8 (1.0-1.7); CALCIUM 8.9 mg/dL (8.5-10.1); CREATININE 1.2 mg/dL (0.7-1.3); GFR 66.4; POTASSIUM 4.2 mmol/L (3.5-5.1); TOTAL BILIRUBIN 0.7 mg/dL (0.2-1.0); TOTAL PROTEIN 6.4 g/dL (6.4-8.2)
[2018-04-05] MEDS: ONDANSETRON PF 4 MG/2 ML VIAL. IV PRN ×3 (06:04→19:22)
[2018-04-05 07:00] VITALS: BP 135/69
[2018-04-05] MEDS: INSULIN LISPRO 300 UNITS/3 ML INSULN.PEN. SQ SCH ×3 (08:00→15:26)
--- NOTE | 2018-04-05 08:18 | PDOC ---
SURGICAL PROGRESS NOTE Subjective Pt sitting up in chair, denies c/o, min pain with movement, has been ambulating , no flatus or stool, voiding well Vital Signs Vital Signs Date Time Temp Pulse Resp B/P (MAP) Pulse Ox O2 Delivery O2 Flow Rate FiO2 04/05/18 06:13 Room Air 04/05/18 03:32 98.4 86 18 141/74 (96) 96 2.0 98.4 I&O Intake and Output 04/05/18 07:00 Intake Total 1500 ml Output Total 3020 ml Balance -1520 ml IV Total 1500 ml Output Urine Total 2450 ml Gastric Drainage Total 525 ml Drainage Total 40 ml Other 5 ml # Voids 1 PATIENT HAS A ENRIQUE: No General: Alert, Oriented X3, Cooperative, No acute distress Abdomen: Soft, No tenderness, Other (dressing intact, drain serosang) Labs Laboratory Tests Test 04/03/18 11:35 04/03/18 14:51 04/03/18 22:53 04/04/18 03:11 Glucose (Fingerstick) 171 mg/dL (70-99) 147 mg/dL (70-99) 145 mg/dL (70-99) 133 mg/dL (70-99) Test 04/04/18 03:50 04/04/18 08:59 04/04/18 15:15 04/04/18 20:55 White Blood Count 34.1 x10^3/uL (4.0-11.0) Red Blood Count 3.89 x10^6/uL (4.30-5.70) Hemoglobin 12.3 g/dL (13.0-17.5) Hematocrit 36.5 % (39.0-53.0) Mean Corpuscular Volume 94 fL (79-100) Mean Corpuscular Hemoglobin 32 pg (25-35) Mean Corpuscular Hemoglobin Concent 34 g/dL (31-37) Red Cell Distribution Width 14.0 % (11.5-14.5) Platelet Count 246 x10^3/uL (140-400) Neutrophils (%) (Auto) 82 % (31-73) Lymphocytes (%) (Auto) 5 % (24-48) Monocytes (%) (Auto) 13 % (0-9) Eosinophils (%) (Auto) 0 % (0-3) Basophils (%) (Auto) 0 % (0-3) Neutrophils # (Auto) 27.8 x10^3uL (1.8-7.7) Lymphocytes # (Auto) 1.6 x10^3/uL (1.0-4.8) Monocytes # (Auto) 4.6 x10^3/uL (0.0-1.1) Eosinophils # (Auto) 0.0 x10^3/uL (0.0-0.7) Basophils # (Auto) 0.1 x10^3/uL (0.0-0.2) Segmented Neutrophils % 80 % (35-66) Band Neutrophils % 5 % (0-9) Lymphocytes % 3 % (24-48) Monocytes % 12 % (0-10) Platelet Estimate Adequate (ADEQUATE) Sodium Level 137 mmol/L (136-145) Potassium Level 4.5 mmol/L (3.5-5.1) Chloride Level 104 mmol/L (98-107) Carbon Dioxide Level 28 mmol/L (21-32) Anion Gap 5 (6-14) Blood Urea Nitrogen 31 mg/dL (8-26) Creatinine 1.7 mg/dL (0.7-1.3) Estimated GFR (Cockcroft-Gault) 44.4 Glucose Level 144 mg/dL (70-99) Calcium Level 8.6 mg/dL (8.5-10.1) Glucose (Fingerstick) 137 mg/dL (70-99) 107 mg/dL (70-99) 112 mg/dL (70-99) Test 04/05/18 04:45 White Blood Count 30.1 x10^3/uL (4.0-11.0) Red Blood Count 3.67 x10^6/uL (4.30-5.70) Hemoglobin 11.4 g/dL (13.0-17.5) Hematocrit 34.6 % (39.0-53.0) Mean Corpuscular Volume 94 fL (79-100) Mean Corpuscular Hemoglobin 31 pg (25-35) Mean Corpuscular Hemoglobin Concent 33 g/dL (31-37) Red Cell Distribution Width 14.1 % (11.5-14.5) Platelet Count 291 x10^3/uL (140-400) Neutrophils (%) (Auto) 76 % (31-73) Lymphocytes (%) (Auto) 8 % (24-48) Monocytes (%) (Auto) 16 % (0-9) Eosinophils (%) (Auto) 0 % (0-3) Basophils (%) (Auto) 0 % (0-3) Neutrophils # (Auto) 22.8 x10^3uL (1.8-7.7) Lymphocytes # (Auto) 2.4 x10^3/uL (1.0-4.8) Monocytes # (Auto) 4.7 x10^3/uL (0.0-1.1) Eosinophils # (Auto) 0.1 x10^3/uL (0.0-0.7) Basophils # (Auto) 0.1 x10^3/uL (0.0-0.2) Sodium Level 142 mmol/L (136-145) Potassium Level 4.2 mmol/L (3.5-5.1) Chloride Level 105 mmol/L (98-107) Carbon Dioxide Level 30 mmol/L (21-32) Anion Gap 7 (6-14) Blood Urea Nitrogen 18 mg/dL (8-26) Creatinine 1.2 mg/dL (0.7-1.3) Estimated GFR (Cockcroft-Gault) 66.4 BUN/Creatinine Ratio 15 (6-20) Glucose Level 124 mg/dL (70-99) Calcium Level 8.9 mg/dL (8.5-10.1) Total Bilirubin 0.7 mg/dL (0.2-1.0) Aspartate Amino Transf (AST/SGOT) 85 U/L (15-37) Alanine Aminotransferase (ALT/SGPT) 87 U/L (16-63) Alkaline Phosphatase 79 U/L (46-116) Total Protein 6.4 g/dL (6.4-8.2) Albumin 2.8 g/dL (3.4-5.0) Albumin/Globulin Ratio 0.8 (1.0-1.7) Laboratory Tests Test 04/04/18 08:59 04/04/18 15:15 04/04/18 20:55 04/05/18 04:45 Glucose (Fingerstick) 137 mg/dL (70-99) 107 mg/dL (70-99) 112 mg/dL (70-99) White Blood Count 30.1 x10^3/uL (4.0-11.0) Red Blood Count 3.67 x10^6/uL (4.30-5.70) Hemoglobin 11.4 g/dL (13.0-17.5) Hematocrit 34.6 % (39.0-53.0) Mean Corpuscular Volume 94 fL (79-100) Mean Corpuscular Hemoglobin 31 pg (25-35) Mean Corpuscular Hemoglobin Concent 33 g/dL (31-37) Red Cell Distribution Width 14.1 % (11.5-14.5) Platelet Count 291 x10^3/uL (140-400) Neutrophils (%) (Auto) 76 % (31-73) Lymphocytes (%) (Auto) 8 % (24-48) Monocytes (%) (Auto) 16 % (0-9) Eosinophils (%) (Auto) 0 % (0-3) Basophils (%) (Auto) 0 % (0-3) Neutrophils # (Auto) 22.8 x10^3uL (1.8-7.7) Lymphocytes # (Auto) 2.4 x10^3/uL (1.0-4.8) Monocytes # (Auto) 4.7 x10^3/uL (0.0-1.1) Eosinophils # (Auto) 0.1 x10^3/uL (0.0-0.7) Basophils # (Auto) 0.1 x10^3/uL (0.0-0.2) Sodium Level 142 mmol/L (136-145) Potassium Level 4.2 mmol/L (3.5-5.1) Chloride Level 105 mmol/L (98-107) Carbon Dioxide Level 30 mmol/L (21-32) Anion Gap 7 (6-14) Blood Urea Nitrogen 18 mg/dL (8-26) Creatinine 1.2 mg/dL (0.7-1.3) Estimated GFR (Cockcroft-Gault) 66.4 BUN/Creatinine Ratio 15 (6-20) Glucose Level 124 mg/dL (70-99) Calcium Level 8.9 mg/dL (8.5-10.1) Total Bilirubin 0.7 mg/dL (0.2-1.0) Aspartate Amino Transf (AST/SGOT) 85 U/L (15-37) Alanine Aminotransferase (ALT/SGPT) 87 U/L (16-63) Alkaline Phosphatase 79 U/L (46-116) Total Protein 6.4 g/dL (6.4-8.2) Albumin 2.8 g/dL (3.4-5.0) Albumin/Globulin Ratio 0.8 (1.0-1.7) Problem List s/p xlap appears to be doing well, will clamp NGT and try clears appreciate consultants cr at baseline WBC trending down path pending RENETTA LAMBERT MD Apr 05, 2018 08:18
[2018-04-05] MEDS: HEPARIN PF for SUB-Q USE 5,000 UNIT/0.5 ML VIAL. SQ SCH ×2 (09:56→19:22)
--- NOTE | 2018-04-05 10:14 | PDOC ---
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 surgery NG tube is clamped No bowel sounds No flatus yet Jackson out 1 abdominal drain, some blackish drainage Plan: NGT trial continue CHEESE GRADER through Sunday Labs again tomorrow Supportive care Discussed with family Vitals Vitals Vital Signs Date Time Temp Pulse Resp B/P (MAP) Pulse Ox O2 Delivery O2 Flow Rate FiO2 04/05/18 07:00 98.4 77 18 135/69 (91) 91 Nasal Cannula 2.0 98.4 Physical Exam General: Alert, Oriented X3, Cooperative, No acute distress Heart: Regular rate, Normal S1, Normal S2 Lungs: Clear Abdomen: Soft, No tenderness, Other (dressing intact, drain serosang) Extremities: No clubbing, No cyanosis, No edema Skin: No rashes, No breakdown Labs LABS Laboratory Tests Test 04/04/18 15:15 04/04/18 20:55 04/05/18 04:45 04/05/18 09:34 Glucose (Fingerstick) 107 mg/dL (70-99) 112 mg/dL (70-99) 134 mg/dL (70-99) White Blood Count 30.1 x10^3/uL (4.0-11.0) Red Blood Count 3.67 x10^6/uL (4.30-5.70) Hemoglobin 11.4 g/dL (13.0-17.5) Hematocrit 34.6 % (39.0-53.0) Mean Corpuscular Volume 94 fL (79-100) Mean Corpuscular Hemoglobin 31 pg (25-35) Mean Corpuscular Hemoglobin Concent 33 g/dL (31-37) Red Cell Distribution Width 14.1 % (11.5-14.5) Platelet Count 291 x10^3/uL (140-400) Neutrophils (%) (Auto) 76 % (31-73) Lymphocytes (%) (Auto) 8 % (24-48) Monocytes (%) (Auto) 16 % (0-9) Eosinophils (%) (Auto) 0 % (0-3) Basophils (%) (Auto) 0 % (0-3) Neutrophils # (Auto) 22.8 x10^3uL (1.8-7.7) Lymphocytes # (Auto) 2.4 x10^3/uL (1.0-4.8) Monocytes # (Auto) 4.7 x10^3/uL (0.0-1.1) Eosinophils # (Auto) 0.1 x10^3/uL (0.0-0.7) Basophils # (Auto) 0.1 x10^3/uL (0.0-0.2) Sodium Level 142 mmol/L (136-145) Potassium Level 4.2 mmol/L (3.5-5.1) Chloride Level 105 mmol/L (98-107) Carbon Dioxide Level 30 mmol/L (21-32) Anion Gap 7 (6-14) Blood Urea Nitrogen 18 mg/dL (8-26) Creatinine 1.2 mg/dL (0.7-1.3) Estimated GFR (Cockcroft-Gault) 66.4 BUN/Creatinine Ratio 15 (6-20) Glucose Level 124 mg/dL (70-99) Calcium Level 8.9 mg/dL (8.5-10.1) Total Bilirubin 0.7 mg/dL (0.2-1.0) Aspartate Amino Transf (AST/SGOT) 85 U/L (15-37) Alanine Aminotransferase (ALT/SGPT) 87 U/L (16-63) Alkaline Phosphatase 79 U/L (46-116) Total Protein 6.4 g/dL (6.4-8.2) Albumin 2.8 g/dL (3.4-5.0) Albumin/Globulin Ratio 0.8 (1.0-1.7) Review of Systems Review of Systems Postop abdominal pain, no flatus, weak somewhat, otherwise rest of ROS negative Comment Review of Relevant I have reviewed the following items gladys (where applicable) has been applied. Labs Laboratory Tests Test 04/03/18 11:35 04/03/18 14:51 04/03/18 22:53 04/04/18 03:11 Glucose (Fingerstick) 171 mg/dL (70-99) 147 mg/dL (70-99) 145 mg/dL (70-99) 133 mg/dL (70-99) Test 04/04/18 03:50 04/04/18 08:59 04/04/18 15:15 04/04/18 20:55 White Blood Count 34.1 x10^3/uL (4.0-11.0) Red Blood Count 3.89 x10^6/uL (4.30-5.70) Hemoglobin 12.3 g/dL (13.0-17.5) Hematocrit 36.5 % (39.0-53.0) Mean Corpuscular Volume 94 fL (79-100) Mean Corpuscular Hemoglobin 32 pg (25-35) Mean Corpuscular Hemoglobin Concent 34 g/dL (31-37) Red Cell Distribution Width 14.0 % (11.5-14.5) Platelet Count 246 x10^3/uL (140-400) Neutrophils (%) (Auto) 82 % (31-73) Lymphocytes (%) (Auto) 5 % (24-48) Monocytes (%) (Auto) 13 % (0-9) Eosinophils (%) (Auto) 0 % (0-3) Basophils (%) (Auto) 0 % (0-3) Neutrophils # (Auto) 27.8 x10^3uL (1.8-7.7) Lymphocytes # (Auto) 1.6 x10^3/uL (1.0-4.8) Monocytes # (Auto) 4.6 x10^3/uL (0.0-1.1) Eosinophils # (Auto) 0.0 x10^3/uL (0.0-0.7) Basophils # (Auto) 0.1 x10^3/uL (0.0-0.2) Segmented Neutrophils % 80 % (35-66) Band Neutrophils % 5 % (0-9) Lymphocytes % 3 % (24-48) Monocytes % 12 % (0-10) Platelet Estimate Adequate (ADEQUATE) Sodium Level 137 mmol/L (136-145) Potassium Level 4.5 mmol/L (3.5-5.1) Chloride Level 104 mmol/L (98-107) Carbon Dioxide Level 28 mmol/L (21-32) Anion Gap 5 (6-14) Blood Urea Nitrogen 31 mg/dL (8-26) Creatinine 1.7 mg/dL (0.7-1.3) Estimated GFR (Cockcroft-Gault) 44.4 Glucose Level 144 mg/dL (70-99) Calcium Level 8.6 mg/dL (8.5-10.1) Glucose (Fingerstick) 137 mg/dL (70-99) 107 mg/dL (70-99) 112 mg/dL (70-99) Test 04/05/18 04:45 04/05/18 09:34 White Blood Count 30.1 x10^3/uL (4.0-11.0) Red Blood Count 3.67 x10^6/uL (4.30-5.70) Hemoglobin 11.4 g/dL (13.0-17.5) Hematocrit 34.6 % (39.0-53.0) Mean Corpuscular Volume 94 fL (79-100) Mean Corpuscular Hemoglobin 31 pg (25-35) Mean Corpuscular Hemoglobin Concent 33 g/dL (31-37) Red Cell Distribution Width 14.1 % (11.5-14.5) Platelet Count 291 x10^3/uL (140-400) Neutrophils (%) (Auto) 76 % (31-73) Lymphocytes (%) (Auto) 8 % (24-48) Monocytes (%) (Auto) 16 % (0-9) Eosinophils (%) (Auto) 0 % (0-3) Basophils (%) (Auto) 0 % (0-3) Neutrophils # (Auto) 22.8 x10^3uL (1.8-7.7) Lymphocytes # (Auto) 2.4 x10^3/uL (1.0-4.8) Monocytes # (Auto) 4.7 x10^3/uL (0.0-1.1) Eosinophils # (Auto) 0.1 x10^3/uL (0.0-0.7) Basophils # (Auto) 0.1 x10^3/uL (0.0-0.2) Sodium Level 142 mmol/L (136-145) Potassium Level 4.2 mmol/L (3.5-5.1) Chloride Level 105 mmol/L (98-107) Carbon Dioxide Level 30 mmol/L (21-32) Anion Gap 7 (6-14) Blood Urea Nitrogen 18 mg/dL (8-26) Creatinine 1.2 mg/dL (0.7-1.3) Estimated GFR (Cockcroft-Gault) 66.4 BUN/Creatinine Ratio 15 (6-20) Glucose Level 124 mg/dL (70-99) Calcium Level 8.9 mg/dL (8.5-10.1) Total Bilirubin 0.7 mg/dL (0.2-1.0) Aspartate Amino Transf (AST/SGOT) 85 U/L (15-37) Alanine Aminotransferase (ALT/SGPT) 87 U/L (16-63) Alkaline Phosphatase 79 U/L (46-116) Total Protein 6.4 g/dL (6.4-8.2) Albumin 2.8 g/dL (3.4-5.0) Albumin/Globulin Ratio 0.8 (1.0-1.7) Glucose (Fingerstick) 134 mg/dL (70-99) Laboratory Tests Test 04/04/18 15:15 04/04/18 20:55 04/05/18 04:45 04/05/18 09:34 Glucose (Fingerstick) 107 mg/dL (70-99) 112 mg/dL (70-99) 134 mg/dL (70-99) White Blood Count 30.1 x10^3/uL (4.0-11.0) Red Blood Count 3.67 x10^6/uL (4.30-5.70) Hemoglobin 11.4 g/dL (13.0-17.5) Hematocrit 34.6 % (39.0-53.0) Mean Corpuscular Volume 94 fL (79-100) Mean Corpuscular Hemoglobin 31 pg (25-35) Mean Corpuscular Hemoglobin Concent 33 g/dL (31-37) Red Cell Distribution Width 14.1 % (11.5-14.5) Platelet Count 291 x10^3/uL (140-400) Neutrophils (%) (Auto) 76 % (31-73) Lymphocytes (%) (Auto) 8 % (24-48) Monocytes (%) (Auto) 16 % (0-9) Eosinophils (%) (Auto) 0 % (0-3) Basophils (%) (Auto) 0 % (0-3) Neutrophils # (Auto) 22.8 x10^3uL (1.8-7.7) Lymphocytes # (Auto) 2.4 x10^3/uL (1.0-4.8) Monocytes # (Auto) 4.7 x10^3/uL (0.0-1.1) Eosinophils # (Auto) 0.1 x10^3/uL (0.0-0.7) Basophils # (Auto) 0.1 x10^3/uL (0.0-0.2) Sodium Level 142 mmol/L (136-145) Potassium Level 4.2 mmol/L (3.5-5.1) Chloride Level 105 mmol/L (98-107) Carbon Dioxide Level 30 mmol/L (21-32) Anion Gap 7 (6-14) Blood Urea Nitrogen 18 mg/dL (8-26) Creatinine 1.2 mg/dL (0.7-1.3) Estimated GFR (Cockcroft-Gault) 66.4 BUN/Creatinine Ratio 15 (6-20) Glucose Level 124 mg/dL (70-99) Calcium Level 8.9 mg/dL (8.5-10.1) Total Bilirubin 0.7 mg/dL (0.2-1.0) Aspartate Amino Transf (AST/SGOT) 85 U/L (15-37) Alanine Aminotransferase (ALT/SGPT) 87 U/L (16-63) Alkaline Phosphatase 79 U/L (46-116) Total Protein 6.4 g/dL (6.4-8.2) Albumin 2.8 g/dL (3.4-5.0) Albumin/Globulin Ratio 0.8 (1.0-1.7) Medications Current Medications Heparin Sodium (Porcine) 1000 unit/Sodium Chloride 1,001 ml @ 1,001 mls/hr 1X ONCE IRR ; Start 04/02/18 at 06:00; Stop 04/02/18 at 06:59; Status DC Cefazolin Sodium/ Dextrose 50 ml @ 100 mls/hr 1X PREOP PRN IV PRIOR TO PROCEDURE Last administered on 04/02/18at 08:43; Start 04/02/18 at 06:00; Stop 04/02 at 18:00; Status DC Ondansetron HCl (Zofran) 4 mg PRN Q6HRS PRN IV NAUSEA/VOMITING Last administered on 04/02/18at 17:33; Start 04/02/18 at 07:00; Stop 04/03/18 at 06:59; Status DC Fentanyl Citrate (Fentanyl 2ml Vial) 25 mcg PRN Q5MIN PRN IV MILD PAIN; Start 04/02/18 at 07:00; Stop 04/03/18 at 06:59; Status DC Fentanyl Citrate (Fentanyl 2ml Vial) 50 mcg PRN Q5MIN PRN IV MODERATE TO SEVERE PAIN; Start 04/02/18 at 07:00; Stop 04/03/18 at 06:59; Status DC Morphine Sulfate (Morphine Sulfate) 1 mg PRN Q10MIN PRN IV SEVERE PAIN; Start 04/02/18 at 07:00; Stop 04/03/18 at 06:59; Status DC Ringer's Solution 1,000 ml @ 30 mls/hr Q24H IV Last administered on 04/02/18at 07:00; Start 04/02/18 at 07:00; Stop 04/02/18 at 18:59; Status DC Lidocaine HCl (Xylocaine-Mpf 1% 2ml Vial) 2 ml PRN 1X PRN ID IV START; Start at 07:00; Stop 04/03/18 at 06:59; Status DC Hydromorphone HCl (Dilaudid) 0.5 mg PRN Q10MIN PRN IV SEV PAIN, Second choice; Start 04/02/18 at 07:00; Stop 04/03/18 at 06:59; Status DC Prochlorperazine Edisylate (Compazine) 5 mg PACU PRN PRN IV NAUSEA, MRX1; Start 04/02/18 at 07:00; Stop 04/03/18 at 06:59; Status DC Bupivacaine HCl/ Epinephrine Bitart (Marcaine-Epi 0.5%-[id number]) 50 ml STK-MED ONCE .ROUTE Last administered on 04/02/18at 09:00; Start 04/02/18 at 05:50; Stop 04/02/18 at 06:50; Status DC Cellulose (Surgicel Hemostat 2x3) 1 each STK-MED ONCE .ROUTE ; Start 04/02/18 at 05:50; Stop 04/02/18 at 06:50; Status DC Iohexol (Omnipaque 300 Mg/ml) 100 ml STK-MED ONCE .ROUTE ; Start 04/02/18 at 05: 50; Stop 04/02/18 at 06:50; Status DC Bisacodyl (Dulcolax Supp) 10 mg STK-MED ONCE .ROUTE ; Start 04/02/18 at 05:50; Stop 04/02/18 at 06:51; Status DC Bupivacaine HCl/ Epinephrine Bitart (Marcaine-Epi 0.5%-[id number]) 50 ml STK-MED ONCE .ROUTE ; Start 04/02/18 at 06:10; Stop 04/02/18 at 07:11; Status DC Cellulose (Surgicel Hemostat 2x3) 1 each STK-MED ONCE .ROUTE ; Start 04/02/18 at 06:10; Stop 04/02/18 at 07:11; Status DC Bisacodyl (Dulcolax Supp) 10 mg STK-MED ONCE .ROUTE ; Start 04/02/18 at 06:10; Stop 04/02/18 at 07:11; Status DC Iohexol (Omnipaque 300 Mg/ml) 100 ml STK-MED ONCE .ROUTE ; Start 04/02/18 at 06: 11; Stop 04/02/18 at 07:12; Status DC Lidocaine HCl (Xylocaine-Mpf 2% Vial) 2 ml STK-MED ONCE .ROUTE ; Start 04/02/18 at 07:30; Stop 04/02/18 at 07:31; Status DC Propofol 20 ml @ As Directed STK-MED ONCE IV ; Start 04/02/18 at 07:32; Stop 04/02 at 07:33; Status DC Lidocaine HCl (Xylocaine-Mpf 1% 5ml Vial) 5 ml STK-MED ONCE .ROUTE ; Start at 07:32; Stop 04/02/18 at 07:33; Status DC Rocuronium [place] (Zemuron) 100 mg STK-MED ONCE .ROUTE ; Start 04/02/18 at 07:32 ; Stop 04/02/18 at 07:33; Status DC Fentanyl Citrate (Fentanyl 5ml Vial) 250 mcg STK-MED ONCE .ROUTE ; Start at 07:33; Stop 04/02/18 at 07:34; Status DC Dexamethasone Sodium Phosphate (Decadron) 20 mg STK-MED ONCE .ROUTE ; Start 04/02 at 08:42; Stop 04/02/18 at 08:43; Status DC Ephedrine Sulfate (ePHEDrine PF IN SALINE SYRINGE) 50 mg STK-MED ONCE IV ; Start 04/02/18 at 08:42; Stop 04/02/18 at 08:43; Status DC Sodium Chloride 38.4 ml/Fentanyl Citrate 250 mcg/ Ropivacaine 10 ml/ Epidural Dosage Infused (Pha) 53.4 ml @ 0 mls/hr CONT PRN EP SEE PROTOCOL TABLE Last administered on 04/05/18at 06:13; Start 04/02/18 at 09:00 Naloxone HCl (Narcan) 0.1 mg PRN 1X PRN IV RESP DEPRESSION, MRX1; Start at 09:00 Bupivacaine HCl (Sensorcaine Mpf 0.25%) 30 ml STK-MED ONCE .ROUTE ; Start at 08:53; Stop 04/02/18 at 08:54; Status DC Famotidine (Pepcid Vial) 20 mg STK-MED ONCE .ROUTE ; Start 04/02/18 at 08:58; Stop 04/02/18 at 08:59; Status DC Hydrocortisone Sodium Succinate (Solu-CORTEF) 100 mg STK-MED ONCE .ROUTE ; Start 04/02/18 at 08:58; Stop 04/02/18 at 08:59; Status DC Diphenhydramine HCl (Benadryl) 50 mg STK-MED ONCE .ROUTE ; Start 04/02/18 at 08: 58; Stop 04/02/18 at 08:59; Status DC Metronidazole 200 ml @ 200 mls/hr 1X ONCE IV Last administered on 04/02/18at 09 :11; Start 04/02/18 at 09:15; Stop 04/02/18 at 10:14; Status DC Desflurane (Suprane) 90 ml STK-MED ONCE IH ; Start 04/02/18 at 09:21; Stop at 09:22; Status DC Glycopyrrolate (Robinul) 1 mg STK-MED ONCE .ROUTE ; Start 04/02/18 at 10:29; Stop 04/02/18 at 10:30; Status DC Neostigmine Methylsulfate (Neostigmine Methylsulfate) 5 mg STK-MED ONCE .ROUTE ; Start 04/02/18 at 10:29; Stop 04/02/18 at 10:30; Status DC Ondansetron HCl (Zofran) 4 mg STK-MED ONCE .ROUTE ; Start 04/02/18 at 10:30; Stop 04/02/18 at 10:31; Status DC Phenylephrine HCl (PHENYLEPHRINE in 0.9% NACL PF) 1 mg STK-MED ONCE IV ; Start 04/02/18 at 11:54; Stop 04/02/18 at 11:55; Status DC Cellulose (Surgicel Hemostat 4x8) 1 each STK-MED ONCE .ROUTE Last administered on 04/02/18at 12:00; Start 04/02/18 at 10:58; Stop 04/02/18 at 11:58; Status DC Sodium Chloride (Normal Saline Flush) 3 ml QSHIFT PRN IV AFTER MEDS AND BLOOD DRAWS; Start 04/02/18 at 13:45 Ringer's Solution 1,000 ml @ 125 mls/hr Q8H IV Last administered on 04/05/18at 09:57; Start 04/02/18 at 14:00 Ondansetron HCl (Zofran) 4 mg PRN Q6HRS PRN IV NAUESA, 1ST CHOICE Last administered on 04/05/18at 06:04; Start 04/02/18 at 13:45 Heparin Sodium (Porcine) (Heparin Sq) 5,000 unit Q12HR SQ Last administered on 04/05/18at 09:56; Start 04/03/18 at 09:00 Throat Lozenges (Chloraseptic) 1 spray PRN Q2HR PRN PO SORE THROAT; Start at 05:45 Dextrose (Dextrose 50%-Water Syringe) 12.5 gm PRN Q15MIN PRN IV SEE COMMENTS; Start 04/03/18 at 08:00 Ringer's Solution 500 ml @ 500 mls/hr 1X ONCE IV Last administered on at 11:30; Start 04/03/18 at 11:30; Stop 04/03/18 at 12:29; Status DC Insulin Human Lispro (HumaLOG) 0-5 UNITS TIDWMEALS SQ ; Start 04/03/18 at 17:00 Dextrose (Dextrose 50%-Water Syringe) 12.5 gm PRN Q15MIN PRN IV SEE COMMENTS; Start 04/03/18 at 13:30; Status UNV Famotidine (Pepcid Vial) 20 mg QHS IVP Last administered on 04/04/18at 21:16; Start 04/03/18 at 21:00 Oxycodone/ Acetaminophen (Percocet 5/325) 1 tab PRN Q4HRS PRN PO MODERATE PAIN ; Start 04/05/18 at 08:45 Active Scripts Active Reported Multivitamins (Multivitamin) 1 Each Tablet 1 Tab PO DAILY Zyrtec (Cetirizine Hcl) 10 Mg Tablet 1 Tab PO DAILY Hydrochlorothiazide Tablet (Hydrochlorothiazide) 25 Mg Tablet 25 Mg PO DAILY Ranitidine Hcl 150 Mg Capsule 150 Mg PO DAILY Allopurinol 100 Mg Tablet 100 Mg PO DAILY Vitals/I & O Vital Sign - Last 24 Hours 04/04/18 04/04/18 04/04/18 04/04/18 10:50 12:23 12:53 15:00 Temp 98.5 98.5 98.5 98.5 Pulse 72 77 Resp 18 16 18 B/P (MAP) 142/67 (92) 145/80 (101) Pulse Ox 94 97 O2 Delivery Room Air Room Air Nasal Cannula O2 Flow Rate 2.0 2.0 04/04/18 04/04/18 04/04/18 04/04/18 18:38 19:25 20:00 23:37 Temp 98.9 98.4 98.9 98.4 Pulse 90 85 Resp 16 18 18 B/P (MAP) 135/73 (93) 151/79 (103) Pulse Ox 96 96 O2 Delivery Nasal Cannula Nasal Cannula Nasal Cannula Nasal Cannula O2 Flow Rate 2.0 2.0 2.0 2.0 04/05/18 04/05/18 04/05/18 04/05/18 00:52 03:32 06:13 07:00 Temp 98.4 98.4 Pulse 86 Resp 18 14 B/P (MAP) 141/74 (96) Pulse Ox 96 O2 Delivery Room Air Nasal Cannula Room Air Room Air O2 Flow Rate 2.0 04/05/18 07:00 Temp 98.4 98.4 Pulse 77 Resp 18 B/P (MAP) 135/69 (91) Pulse Ox 91 O2 Delivery Nasal Cannula O2 Flow Rate 2.0 Intake and Output 04/04/18 04/04/18 04/05/18 15:00 23:00 07:00 Intake Total 1500 ml Output Total 400 ml 940 ml 1680 ml Balance -400 ml 560 ml -1680 ml CELIO GENTILE MD Apr 05, 2018 10:14
[2018-04-05 11:00] VITALS: BP 138/72
--- NOTE | 2018-04-05 11:58 | PDOC ---
SUBJECTIVE ROS States he is Not doing good"My IV is out" Good UOP post Jackson removal, No Dysuria OBJECTIVE Vital Signs Vital Signs Date Time Temp Pulse Resp B/P (MAP) Pulse Ox O2 Delivery O2 Flow Rate FiO2 04/05/18 08:00 Nasal Cannula 2.0 04/05/18 07:00 98.4 77 18 135/69 (91) 91 98.4 I & 0 Intake and Output 04/05/18 07:00 Intake Total 1500 ml Output Total 3020 ml Balance -1520 ml IV Total 1500 ml Output Urine Total 2450 ml Gastric Drainage Total 525 ml Drainage Total 40 ml Other 5 ml # Voids 1 PHYSICAL EXAM Physical Exam General: NAD , Obese HEENT: Atraumatic, PERRLA neck Supple Lungs: Clear to auscultation Heart: Regular rate, Normal S1, Normal S2 Abdomen: Normal bowel sounds, Soft,, abd sx wound-dressing Left abd ANDREY Extremities: No LE edema Skin: No rashes, Neuro: Grossly normal - No Jackson DIAGNOSIS/ASSESSMENT Assessment & Plan NADINE- Suspect ATN - Hypotensive on post surgery Creat improved, back to his baseline Good UOP, E-Lytes and acid base stable Hx of RCC s/p Rt nephrectomy Baseline Creat never above 1.2-1.3, Mostly 1.1 as per his Pancreatic cyst s/p Laparoscopic cholecystectomy,liver biopsy, lysis of adhesion , small bowel biopsy, distal pancreatectomy and splenectomy 04/02 Hx Nephrolithiasis Discussed with patient, Will sign Off COMMENT/RELEVANT DATA Meds Current Medications Medications (Trade) Dose Ordered Sig/[place] Start Time Stop Time Status Last Admin Dose Admin Bisacodyl (Dulcolax Supp) 10 mg STK-MED ONCE 04/02/18 06:10 04/02/18 07:11 DC Bupivacaine HCl (Sensorcaine Mpf 0.25%) 30 ml STK-MED ONCE 04/02/18 08:53 04/02/18 08:54 DC Bupivacaine HCl/ Epinephrine Bitart (Marcaine-Epi 0.5%-1:[id number]) 50 ml STK-MED ONCE 04/02/18 06:10 04/02/18 07:11 DC Cefazolin Sodium/ Dextrose 50 ml @ 100 mls/hr 1X PREOP PRN 04/02/18 06:00 9/4/18 18:00 DC 04/02/18 08:43 100 MLS/HR Cellulose (Surgicel Hemostat 2x3) 1 each STK-MED ONCE 04/02/18 06:10 04/02/18 07:11 DC Cellulose (Surgicel Hemostat 4x8) 1 each STK-MED ONCE 04/02/18 10:58 04/02/18 11:58 DC 04/02/18 12:00 1 EACH Desflurane (Suprane) 90 ml STK-MED ONCE 04/02/18 09:21 04/02/18 09:22 DC Dexamethasone Sodium Phosphate (Decadron) 20 mg STK-MED ONCE 04/02/18 08:42 04/02/18 08:43 DC Dextrose (Dextrose 50%-Water Syringe) 12.5 gm PRN Q15MIN PRN 04/03/18 13:30 UNV Diphenhydramine HCl (Benadryl) 50 mg STK-MED ONCE 04/02/18 08:58 04/02/18 08:59 DC Ephedrine Sulfate (ePHEDrine PF IN SALINE SYRINGE) 50 mg STK-MED ONCE 04/02/18 08:42 04/02/18 08:43 DC Famotidine (Pepcid Vial) 20 mg QHS 04/03/18 21:00 04/04/18 21:16 20 MG Fentanyl Citrate (Fentanyl 2ml Vial) 50 mcg PRN Q5MIN PRN 04/02/18 07:00 04/03/18 06:59 DC Fentanyl Citrate (Fentanyl 5ml Vial) 250 mcg STK-MED ONCE 04/02/18 07:33 04/02/18 07:34 DC Glycopyrrolate (Robinul) 1 mg STK-MED ONCE 04/02/18 10:29 04/02/18 10:30 DC Heparin Sodium (Porcine) (Heparin Sq) 5,000 unit Q12HR 04/03/18 09:00 04/05/18 09:56 5,000 UNIT Heparin Sodium (Porcine) 1000 unit/Sodium Chloride 1,001 ml @ 1,001 mls/hr 1X ONCE 04/02/18 06:00 04/02/18 06:59 DC Hydrocortisone Sodium Succinate (Solu-CORTEF) 100 mg STK-MED ONCE 04/02/18 08:58 04/02/18 08:59 DC Hydromorphone HCl (Dilaudid) 0.5 mg PRN Q10MIN PRN 04/02/18 07:00 04/03/18 06:59 DC Insulin Human Lispro (HumaLOG) 0-5 UNITS TIDWMEALS 04/03/18 17:00 Iohexol (Omnipaque 300 Mg/ml) 100 ml STK-MED ONCE 04/02/18 06:11 04/02/18 07:12 DC Lidocaine HCl (Xylocaine-Mpf 1% 2ml Vial) 2 ml PRN 1X PRN 04/02/18 07:00 04/03/18 06:59 DC Lidocaine HCl (Xylocaine-Mpf 1% 5ml Vial) 5 ml STK-MED ONCE 04/02/18 07:32 04/02/18 07:33 DC Lidocaine HCl (Xylocaine-Mpf 2% Vial) 2 ml STK-MED ONCE 04/02/18 07:30 04/02/18 07:31 DC Metronidazole 200 ml @ 200 mls/hr 1X ONCE 04/02/18 09:15 04/02/18 10:14 DC 04/02/18 09:11 200 MLS/HR Morphine Sulfate (Morphine Sulfate) 1 mg PRN Q10MIN PRN 04/02/18 07:00 04/03/18 06:59 DC Naloxone HCl (Narcan) 0.1 mg PRN 1X PRN 04/02/18 09:00 Neostigmine Methylsulfate (Neostigmine Methylsulfate) 5 mg STK-MED ONCE 04/02/18 10:29 04/02/18 10:30 DC Ondansetron HCl (Zofran) 4 mg PRN Q6HRS PRN 04/02/18 13:45 04/05/18 06:04 4 MG Oxycodone/ Acetaminophen (Percocet 5/325) 1 tab PRN Q4HRS PRN 04/05/18 08:45 Phenylephrine HCl (PHENYLEPHRINE in 0.9% NACL PF) 1 mg STK-MED ONCE 04/02/18 11:54 04/02/18 11:55 DC Prochlorperazine Edisylate (Compazine) 5 mg PACU PRN PRN 04/02/18 07:00 04/03/18 06:59 DC Propofol 20 ml @ As Directed STK-MED ONCE 04/02/18 07:32 04/02/18 07:33 DC Ringer's Solution 500 ml @ 500 mls/hr 1X ONCE 04/03/18 11:30 04/03/18 12:29 DC 04/03/18 11:30 500 MLS/HR Rocuronium [place] (Zemuron) 100 mg STK-MED ONCE 04/02/18 07:32 04/02/18 07:33 DC Sodium Chloride (Normal Saline Flush) 3 ml QSHIFT PRN 04/02/18 13:45 Sodium Chloride 38.4 ml/Fentanyl Citrate 250 mcg/ Ropivacaine 10 ml/ Epidural Dosage Infused (Pha) 53.4 ml @ 0 mls/hr CONT PRN 04/02/18 09:00 04/05/18 06:13 0 MLS/HR Throat Lozenges (Chloraseptic) 1 spray PRN Q2HR PRN 04/03/18 05:45 Lab Laboratory Tests Test 04/04/18 15:15 04/04/18 20:55 04/05/18 04:45 04/05/18 09:34 Glucose (Fingerstick) 107 mg/dL (70-99) 112 mg/dL (70-99) 134 mg/dL (70-99) White Blood Count 30.1 x10^3/uL (4.0-11.0) Red Blood Count 3.67 x10^6/uL (4.30-5.70) Hemoglobin 11.4 g/dL (13.0-17.5) Hematocrit 34.6 % (39.0-53.0) Mean Corpuscular Volume 94 fL (79-100) Mean Corpuscular Hemoglobin 31 pg (25-35) Mean Corpuscular Hemoglobin Concent 33 g/dL (31-37) Red Cell Distribution Width 14.1 % (11.5-14.5) Platelet Count 291 x10^3/uL (140-400) Neutrophils (%) (Auto) 76 % (31-73) Lymphocytes (%) (Auto) 8 % (24-48) Monocytes (%) (Auto) 16 % (0-9) Eosinophils (%) (Auto) 0 % (0-3) Basophils (%) (Auto) 0 % (0-3) Neutrophils # (Auto) 22.8 x10^3uL (1.8-7.7) Lymphocytes # (Auto) 2.4 x10^3/uL (1.0-4.8) Monocytes # (Auto) 4.7 x10^3/uL (0.0-1.1) Eosinophils # (Auto) 0.1 x10^3/uL (0.0-0.7) Basophils # (Auto) 0.1 x10^3/uL (0.0-0.2) Sodium Level 142 mmol/L (136-145) Potassium Level 4.2 mmol/L (3.5-5.1) Chloride Level 105 mmol/L (98-107) Carbon Dioxide Level 30 mmol/L (21-32) Anion Gap 7 (6-14) Blood Urea Nitrogen 18 mg/dL (8-26) Creatinine 1.2 mg/dL (0.7-1.3) Estimated GFR (Cockcroft-Gault) 66.4 BUN/Creatinine Ratio 15 (6-20) Glucose Level 124 mg/dL (70-99) Calcium Level 8.9 mg/dL (8.5-10.1) Total Bilirubin 0.7 mg/dL (0.2-1.0) Aspartate Amino Transf (AST/SGOT) 85 U/L (15-37) Alanine Aminotransferase (ALT/SGPT) 87 U/L (16-63) Alkaline Phosphatase 79 U/L (46-116) Total Protein 6.4 g/dL (6.4-8.2) Albumin 2.8 g/dL (3.4-5.0) Albumin/Globulin Ratio 0.8 (1.0-1.7) Results All relevant outside records, renal labs, imaging studies, telemetry/EKG's were reviewed. MONIK BREWSTER MD Apr 05, 2018 11:58
--- NOTE | 2018-04-05 14:24 | PDOC ---
Subjective: Subjective: reports didn't do well with trial of clear liquids, NG back to suction. Objective: Vital Signs: Vital Signs Date Time Temp Pulse Resp B/P (MAP) Pulse Ox O2 Delivery O2 Flow Rate FiO2 04/05/18 13:10 16 Room Air 04/05/18 11:00 98.4 65 138/72 (94) 95 2.0 98.4 Labs: Laboratory Tests Test 04/04/18 15:15 04/04/18 20:55 04/05/18 04:45 04/05/18 09:34 Glucose (Fingerstick) 107 mg/dL 112 mg/dL 134 mg/dL White Blood Count 30.1 x10^3/uL Red Blood Count 3.67 x10^6/uL Hemoglobin 11.4 g/dL Hematocrit 34.6 % Mean Corpuscular Volume 94 fL Mean Corpuscular Hemoglobin 31 pg Mean Corpuscular Hemoglobin Concent 33 g/dL Red Cell Distribution Width 14.1 % Platelet Count 291 x10^3/uL Neutrophils (%) (Auto) 76 % Lymphocytes (%) (Auto) 8 % Monocytes (%) (Auto) 16 % Eosinophils (%) (Auto) 0 % Basophils (%) (Auto) 0 % Neutrophils # (Auto) 22.8 x10^3uL Lymphocytes # (Auto) 2.4 x10^3/uL Monocytes # (Auto) 4.7 x10^3/uL Eosinophils # (Auto) 0.1 x10^3/uL Basophils # (Auto) 0.1 x10^3/uL Sodium Level 142 mmol/L Potassium Level 4.2 mmol/L Chloride Level 105 mmol/L Carbon Dioxide Level 30 mmol/L Anion Gap 7 Blood Urea Nitrogen 18 mg/dL Creatinine 1.2 mg/dL Estimated GFR (Cockcroft-Gault) 66.4 BUN/Creatinine Ratio 15 Glucose Level 124 mg/dL Calcium Level 8.9 mg/dL Total Bilirubin 0.7 mg/dL Aspartate Amino Transf (AST/SGOT) 85 U/L Alanine Aminotransferase (ALT/SGPT) 87 U/L Alkaline Phosphatase 79 U/L Total Protein 6.4 g/dL Albumin 2.8 g/dL Albumin/Globulin Ratio 0.8 PE: GEN: NAD LUNGS: CTAB HEART: RRR ABD: quiet NEURO/PSYCH: A & O 3 A/P: S/p cholecystectomy, liver biopsy, DOUGLAS, small bowel biopsy, distal pancreatectomy, splenectomy -- Continue per surgery, await path. SHADE FRIAS Apr 05, 2018 14:24
[2018-04-05 15:00] VITALS: BP 144/83
--- NOTE | 2018-04-05 18:07 | PATHOLOGY ---
[facility] Accession Number: [id number] . 01 Material submitted: . PART A: SMALL BOWEL MASS-FS PART B: OMENTUM-FS PART C: GALLBLADDER PART D: LIVER BIOPSY PART E: SPLEEN, DISTAL PANCREAS . 01 Clinical history: . Pancreatic cyst. . 02 Diagnosis: A. Segment of small intestine tissue, small bowel mass: - Heterotopic pancreas. . B. Segment of fibroadipose tissue, omentum: - Organizing fat necrosis, with focal dystrophic calcification. . C. Gallbladder, cholecystectomy: - Chronic cholecystitis. . D. Liver, wedge biopsy: - Marked steatosis with focal fibrosis. . E. Distal pancreas and attached peripancreatic fat and spleen, distal pancreatectomy with splenectomy: - Macrocystic serous cystadenoma of pancreas, forming a multicystic tumor mass adjacent to the proximal stapled margin and just beneath the anterior resection margin measuring 2.2 cm in greatest dimension. - Nineteen peripancreatic lymph nodes negative for tumor. - Congestion of splenic red pulp. - Focal disruption of splenic capsular surface with recent subcapsular hemorrhage. [facility]/04/05/2018 . 02 Comment: Sections of the pancreatic mass reveal a macrocystic serous cystadenoma, which is a benign epithelial neoplasm composed of cysts which are lined by uniform cuboidal glycogen-rich cells. The tumor lies adjacent to the stapled proximal margin and just beneath the anterior margin which grossly appeared clear to the surgeon. There are nineteen peripancreatic lymph nodes which are negative for tumor. . Sections of the small bowel mass reveal heterotopic pancreas. Sections of the omental mass show organizing fat necrosis with dystrophic calcification. There were no calculi identified within the gallbladder lumen or specimen container. Sections of the gallbladder show chronic inflammation. Sections of the liver wedge biopsy show marked steatosis with focal fibrosis. The final liver biopsy results are pending consultation. (JPM:pit 04/05/2018) . . Special stains performed: Trichome stain, reticulin stain, iron stain, PAS, and PAS with diastase. . 02 Electronically signed: . William Box MD, Pathologist NPI- [id number] . 01 Gross description: . A. The specimen is received fresh for intraoperative consultation and is designated "small bowel mass". This consists of a segment of slightly firm rubbery yellow-red tissue measuring 1.5 x 1.2 x 0.8 cm in greatest dimension. A branch service representative portion of the specimen is submitted for frozen section as FSA1. The tissue remaining from frozen section is submitted for permanent sections as A1. The remainder of the specimen is submitted as A2. . B. The specimen is received fresh for intraoperative consultation and is designated as "omentum". This consists of a segment of yellow-red fatty tissue measuring up to 8.5 x 6.0 x 2.8 cm in greatest dimension. Sectioning reveals a fairly well circumscribed nodule of yellow fat necrosis which is surrounded by a rim of loya-white, focally gritty, fibrous tissue. A branch service representative portion of the nodule is submitted for frozen section as FSB1. The tissue remaining from the frozen section is submitted for permanent section as B1. Additional sections of the nodular lesion are submitted as B2 and B3. (JPM:pit 04/03/2018) . C. Received in formalin labeled "Ayush Griggs, gallbladder" is a previously opened cholecystectomy specimen which measures 6.2 x 2.8 x 1.0 cm. The serosa is green-beverly and smooth. There is a full-thickness defect in the fundus measuring 0.6 x 0.4 cm. The specimen is opened to reveal yellow-green velvety mucosa and no polyps or masses. The average wall thickness measures 0.3 cm. No calculi are grossly identified within the gallbladder or within the container. Business Administration Teacher sections of the fundus and body as well as the cystic duct margin are submitted in cassette C1. . D. Received in formalin labeled "Ayush Griggs, liver biopsy" is a wedge of beverly-brown liver tissue measuring 2.7 x 1.0 x 1.0 cm. The resection margin is roughened and focally cauterized, and is inked entirely black. The liver capsule is beverly-brown and slightly nodular. The specimen is sectioned to reveal no masses or lesions identified. The specimen is submitted entirely in cassette D1-D2. . E. Received in formalin labeled "Ayush Griggs, spleen, distal pancreas" is a specimen consisting of a portion of pancreas (13.5 x 5.2 x 2.0 cm), and an attached spleen (409 g, 16.0 x 11.1 x 6.5 cm). The proximal pancreatic resection margin is closed with a staple line. The staple line is removed, and the margin is inked green. The anterior pancreatic surface is inked blue and the posterior pancreatic surface is inked black. The specimen is serially sectioned from proximal to distal to reveal a thin walled multiloculated cystic lesion in the proximal most portion of the pancreas, which measures 2.2 x 2.0 x 1.7 cm. The lesion does not have papillary excrescences or solid components present. The lesion is located 0.6 cm from the proximal pancreatic margin, grossly abuts the anterior pancreatic surface, and measures 1.3 cm to the posterior pancreatic surface. The lesion does not grossly involve the pancreatic duct. The uninvolved pancreatic tissue is beverly-yellow and finely lobulated. No lymph nodes are grossly identified. The spleen is examined to reveal two linear disruptions of the capsule measuring 4.5 and 8.6 cm in length. Upon sectioning, the splenic tissue is red-purple without lesions or masses. Business Administration Teacher sections of the specimen are submitted as follows: E1-E2 proximal pancreatic margin, en face E3-E6 entire cystic lesion submitted sequentially from proximal to distal E7-E8 branch service representative spleen E9-E17 branch service representative peripancreatic fat to look for [place] nodes [place] [place] . . . FROZEN SECTION: FSA1. Small bowel mass: - Heterotopic pancreas. - The results are reported to Dr. Goldberg in the operating room. . FSB1: Segment of omentum, excision: - Organizing fat necrosis. - The results are reported to Dr. Goldberg in the operating room. . (JPM:terra 04/03/2018) . Frozen section performed at [facility], [address] [place] [id number]. SYC/SYC . 02 Pathologist provided ICD-10: D13.6, K76.0, K74.0, K81.1, K65.4, Q45.3 . 02 CPT . 056804, 666857, 380205, [id number], [id number], [id number], [id number], [id number] Performed at: [address], [place] [id number] MD Rashard Sullivan MD Phone: [phone] Performed at: 02 [facility] [address] [place], [place] [id number] MD William Box MD Phone: [phone]
[2018-04-05 19:00] VITALS: BP 155/78
[2018-04-05] MEDS: FAMOTIDINE 20 MG/2 ML VIAL IVP SCH (19:22)
[2018-04-05 23:00] VITALS: BP 139/71
[2018-04-06] MEDS: [UNRECOGNIZED DRUG - OTHER] EP PRN ×4 (01:04→19:04)
[2018-04-06] MEDS: ROPIVACAINE 0.5% EP PRN ×4 (01:04→19:04)
[2018-04-06] MEDS: FENTANYL EP PRN ×4 (01:04→19:04)
[2018-04-06] MEDS: NORMAL SALINE EP PRN ×4 (01:04→19:04)
[2018-04-06] MEDS: IV RINGERS,LACTATED 1000ML 1,000 ML IV SCH ×2 (02:40→06:07)
[2018-04-06 03:00] VITALS: BP 138/65
[2018-04-06 05:53] LABS: BASO # 0.1 x10^3/uL (0.0-0.2); BASO % 0 % (0-3); EOS # 0.1 x10^3/uL (0.0-0.7); EOS % 0 % (0-3); HEMATOCRIT 33.1 % (39.0-53.0); HEMOGLOBIN 11.1 g/dL (13.0-17.5); LYMPH # 2.2 x10^3/uL (1.0-4.8); LYMPH % 9 % (24-48); MEAN CORPUSCULAR HEMOGLOBIN 32 pg (25-35); MEAN CORPUSCULAR HGB CONC 34 g/dL (31-37); MEAN CORPUSCULAR VOLUME 94 fL (79-100); MONO % 16 % (0-9); NEUT # 19.3 x10^3uL (1.8-7.7); NEUT % 75 % (31-73); PLATELET COUNT 393 x10^3/uL (140-400); RED BLOOD COUNT 3.52 x10^6/uL (4.30-5.70); RED CELL DISTRIBUTION WIDTH 13.7 % (11.5-14.5); WHITE BLOOD COUNT 25.7 x10^3/uL (4.0-11.0)
[2018-04-06] MEDS: ONDANSETRON PF 4 MG/2 ML VIAL. IV PRN ×3 (06:06→18:59)
[2018-04-06 06:14] LABS: ALBUMIN 2.6 g/dL (3.4-5.0); ALBUMIN/GLOBULIN RATIO 0.7 (1.0-1.7); CALCIUM 8.6 mg/dL (8.5-10.1); CREATININE 1.1 mg/dL (0.7-1.3); GFR 73.4; POTASSIUM 3.6 mmol/L (3.5-5.1); TOTAL BILIRUBIN 0.8 mg/dL (0.2-1.0); TOTAL PROTEIN 6.3 g/dL (6.4-8.2)
[2018-04-06 07:00] VITALS: BP 169/77
[2018-04-06] MEDS: INSULIN LISPRO 300 UNITS/3 ML INSULN.PEN. SQ SCH ×3 (08:00→16:50)
[2018-04-06] MEDS: HEPARIN PF for SUB-Q USE 5,000 UNIT/0.5 ML VIAL. SQ SCH ×2 (09:50→21:27)
[2018-04-06 11:00] VITALS: BP 162/82
--- NOTE | 2018-04-06 11:46 | PDOC ---
PROGRESS NOTES Subjective Subjective feels he's a bit better, didn't tolerate NG clamping yesterday, a bit better today, no flatus yet Objective Objective Vital Signs Date Time Temp Pulse Resp B/P (MAP) Pulse Ox O2 Delivery O2 Flow Rate FiO2 04/06/18 07:00 96.4 63 18 169/77 (107) 93 Room Air 96.4 04/06/18 06:45 2.0 Intake and Output 04/06/18 07:00 Intake Total 2324.4 ml Output Total 2210 ml Balance 114.4 ml IV Total 2324.4 ml Output Urine Total 1850 ml Gastric Drainage Total 350 ml Drainage Total 10 ml Physical Exam Abdomen: Soft (wound vac intact) General: Alert, Oriented X3 Plan Plan of Care S/P distal pancreatectomy/splenectomy; postop care, NG trial Comment Review of Relevant I have reviewed the following items gladys (where applicable) has been applied. Labs Laboratory Tests Test 04/04/18 15:15 04/04/18 20:55 04/05/18 04:45 04/05/18 09:34 Glucose (Fingerstick) 107 mg/dL (70-99) 112 mg/dL (70-99) 134 mg/dL (70-99) White Blood Count 30.1 x10^3/uL (4.0-11.0) Red Blood Count 3.67 x10^6/uL (4.30-5.70) Hemoglobin 11.4 g/dL (13.0-17.5) Hematocrit 34.6 % (39.0-53.0) Mean Corpuscular Volume 94 fL (79-100) Mean Corpuscular Hemoglobin 31 pg (25-35) Mean Corpuscular Hemoglobin Concent 33 g/dL (31-37) Red Cell Distribution Width 14.1 % (11.5-14.5) Platelet Count 291 x10^3/uL (140-400) Neutrophils (%) (Auto) 76 % (31-73) Lymphocytes (%) (Auto) 8 % (24-48) Monocytes (%) (Auto) 16 % (0-9) Eosinophils (%) (Auto) 0 % (0-3) Basophils (%) (Auto) 0 % (0-3) Neutrophils # (Auto) 22.8 x10^3uL (1.8-7.7) Lymphocytes # (Auto) 2.4 x10^3/uL (1.0-4.8) Monocytes # (Auto) 4.7 x10^3/uL (0.0-1.1) Eosinophils # (Auto) 0.1 x10^3/uL (0.0-0.7) Basophils # (Auto) 0.1 x10^3/uL (0.0-0.2) Sodium Level 142 mmol/L (136-145) Potassium Level 4.2 mmol/L (3.5-5.1) Chloride Level 105 mmol/L (98-107) Carbon Dioxide Level 30 mmol/L (21-32) Anion Gap 7 (6-14) Blood Urea Nitrogen 18 mg/dL (8-26) Creatinine 1.2 mg/dL (0.7-1.3) Estimated GFR (Cockcroft-Gault) 66.4 BUN/Creatinine Ratio 15 (6-20) Glucose Level 124 mg/dL (70-99) Calcium Level 8.9 mg/dL (8.5-10.1) Total Bilirubin 0.7 mg/dL (0.2-1.0) Aspartate Amino Transf (AST/SGOT) 85 U/L (15-37) Alanine Aminotransferase (ALT/SGPT) 87 U/L (16-63) Alkaline Phosphatase 79 U/L (46-116) Total Protein 6.4 g/dL (6.4-8.2) Albumin 2.8 g/dL (3.4-5.0) Albumin/Globulin Ratio 0.8 (1.0-1.7) Test 04/05/18 15:20 04/05/18 21:36 04/06/18 04:23 04/06/18 04:25 Glucose (Fingerstick) 115 mg/dL (70-99) 107 mg/dL (70-99) White Blood Count 25.7 x10^3/uL (4.0-11.0) Red Blood Count 3.52 x10^6/uL (4.30-5.70) Hemoglobin 11.1 g/dL (13.0-17.5) Hematocrit 33.1 % (39.0-53.0) Mean Corpuscular Volume 94 fL (79-100) Mean Corpuscular Hemoglobin 32 pg (25-35) Mean Corpuscular Hemoglobin Concent 34 g/dL (31-37) Red Cell Distribution Width 13.7 % (11.5-14.5) Platelet Count 393 x10^3/uL (140-400) Neutrophils (%) (Auto) 75 % (31-73) Lymphocytes (%) (Auto) 9 % (24-48) Monocytes (%) (Auto) 16 % (0-9) Eosinophils (%) (Auto) 0 % (0-3) Basophils (%) (Auto) 0 % (0-3) Neutrophils # (Auto) 19.3 x10^3uL (1.8-7.7) Lymphocytes # (Auto) 2.2 x10^3/uL (1.0-4.8) Monocytes # (Auto) 4.0 x10^3/uL (0.0-1.1) Eosinophils # (Auto) 0.1 x10^3/uL (0.0-0.7) Basophils # (Auto) 0.1 x10^3/uL (0.0-0.2) Sodium Level 141 mmol/L (136-145) Potassium Level 3.6 mmol/L (3.5-5.1) Chloride Level 103 mmol/L (98-107) Carbon Dioxide Level 30 mmol/L (21-32) Anion Gap 8 (6-14) Blood Urea Nitrogen 16 mg/dL (8-26) Creatinine 1.1 mg/dL (0.7-1.3) Estimated GFR (Cockcroft-Gault) 73.4 BUN/Creatinine Ratio 15 (6-20) Glucose Level 99 mg/dL (70-99) Calcium Level 8.6 mg/dL (8.5-10.1) Total Bilirubin 0.8 mg/dL (0.2-1.0) Aspartate Amino Transf (AST/SGOT) 62 U/L (15-37) Alanine Aminotransferase (ALT/SGPT) 77 U/L (16-63) Alkaline Phosphatase 93 U/L (46-116) Total Protein 6.3 g/dL (6.4-8.2) Albumin 2.6 g/dL (3.4-5.0) Albumin/Globulin Ratio 0.7 (1.0-1.7) Test 04/06/18 06:12 Glucose (Fingerstick) 108 mg/dL (70-99) Laboratory Tests Test 04/05/18 15:20 04/05/18 21:36 04/06/18 04:23 04/06/18 04:25 Glucose (Fingerstick) 115 mg/dL (70-99) 107 mg/dL (70-99) White Blood Count 25.7 x10^3/uL (4.0-11.0) Red Blood Count 3.52 x10^6/uL (4.30-5.70) Hemoglobin 11.1 g/dL (13.0-17.5) Hematocrit 33.1 % (39.0-53.0) Mean Corpuscular Volume 94 fL (79-100) Mean Corpuscular Hemoglobin 32 pg (25-35) Mean Corpuscular Hemoglobin Concent 34 g/dL (31-37) Red Cell Distribution Width 13.7 % (11.5-14.5) Platelet Count 393 x10^3/uL (140-400) Neutrophils (%) (Auto) 75 % (31-73) Lymphocytes (%) (Auto) 9 % (24-48) Monocytes (%) (Auto) 16 % (0-9) Eosinophils (%) (Auto) 0 % (0-3) Basophils (%) (Auto) 0 % (0-3) Neutrophils # (Auto) 19.3 x10^3uL (1.8-7.7) Lymphocytes # (Auto) 2.2 x10^3/uL (1.0-4.8) Monocytes # (Auto) 4.0 x10^3/uL (0.0-1.1) Eosinophils # (Auto) 0.1 x10^3/uL (0.0-0.7) Basophils # (Auto) 0.1 x10^3/uL (0.0-0.2) Sodium Level 141 mmol/L (136-145) Potassium Level 3.6 mmol/L (3.5-5.1) Chloride Level 103 mmol/L (98-107) Carbon Dioxide Level 30 mmol/L (21-32) Anion Gap 8 (6-14) Blood Urea Nitrogen 16 mg/dL (8-26) Creatinine 1.1 mg/dL (0.7-1.3) Estimated GFR (Cockcroft-Gault) 73.4 BUN/Creatinine Ratio 15 (6-20) Glucose Level 99 mg/dL (70-99) Calcium Level 8.6 mg/dL (8.5-10.1) Total Bilirubin 0.8 mg/dL (0.2-1.0) Aspartate Amino Transf (AST/SGOT) 62 U/L (15-37) Alanine Aminotransferase (ALT/SGPT) 77 U/L (16-63) Alkaline Phosphatase 93 U/L (46-116) Total Protein 6.3 g/dL (6.4-8.2) Albumin 2.6 g/dL (3.4-5.0) Albumin/Globulin Ratio 0.7 (1.0-1.7) Test 04/06/18 06:12 Glucose (Fingerstick) 108 mg/dL (70-99) Medications Current Medications Heparin Sodium (Porcine) 1000 unit/Sodium Chloride 1,001 ml @ 1,001 mls/hr 1X ONCE IRR ; Start 04/02/18 at 06:00; Stop 04/02/18 at 06:59; Status DC Cefazolin Sodium/ Dextrose 50 ml @ 100 mls/hr 1X PREOP PRN IV PRIOR TO PROCEDURE Last administered on 04/02/18at 08:43; Start 04/02/18 at 06:00; Stop 04/02 at 18:00; Status DC Ondansetron HCl (Zofran) 4 mg PRN Q6HRS PRN IV NAUSEA/VOMITING Last administered on 04/02/18at 17:33; Start 04/02/18 at 07:00; Stop 04/03/18 at 06:59; Status DC Fentanyl Citrate (Fentanyl 2ml Vial) 25 mcg PRN Q5MIN PRN IV MILD PAIN; Start 04/02/18 at 07:00; Stop 04/03/18 at 06:59; Status DC Fentanyl Citrate (Fentanyl 2ml Vial) 50 mcg PRN Q5MIN PRN IV MODERATE TO SEVERE PAIN; Start 04/02/18 at 07:00; Stop 04/03/18 at 06:59; Status DC Morphine Sulfate (Morphine Sulfate) 1 mg PRN Q10MIN PRN IV SEVERE PAIN; Start 04/02/18 at 07:00; Stop 04/03/18 at 06:59; Status DC Ringer's Solution 1,000 ml @ 30 mls/hr Q24H IV Last administered on 04/02/18at 07:00; Start 04/02/18 at 07:00; Stop 04/02/18 at 18:59; Status DC Lidocaine HCl (Xylocaine-Mpf 1% 2ml Vial) 2 ml PRN 1X PRN ID IV START; Start at 07:00; Stop 04/03/18 at 06:59; Status DC Hydromorphone HCl (Dilaudid) 0.5 mg PRN Q10MIN PRN IV SEV PAIN, Second choice; Start 04/02/18 at 07:00; Stop 04/03/18 at 06:59; Status DC Prochlorperazine Edisylate (Compazine) 5 mg PACU PRN PRN IV NAUSEA, MRX1; Start 04/02/18 at 07:00; Stop 04/03/18 at 06:59; Status DC Bupivacaine HCl/ Epinephrine Bitart (Marcaine-Epi 0.5%-1:193976) 50 ml STK-MED ONCE .ROUTE Last administered on 04/02/18at 09:00; Start 04/02/18 at 05:50; Stop 04/02/18 at 06:50; Status DC Cellulose (Surgicel Hemostat 2x3) 1 each STK-MED ONCE .ROUTE ; Start 04/02/18 at 05:50; Stop 04/02/18 at 06:50; Status DC Iohexol (Omnipaque 300 Mg/ml) 100 ml STK-MED ONCE .ROUTE ; Start 04/02/18 at 05: 50; Stop 04/02/18 at 06:50; Status DC Bisacodyl (Dulcolax Supp) 10 mg STK-MED ONCE .ROUTE ; Start 04/02/18 at 05:50; Stop 04/02/18 at 06:51; Status DC Bupivacaine HCl/ Epinephrine Bitart (Marcaine-Epi 0.5%-1:750816) 50 ml STK-MED ONCE .ROUTE ; Start 04/02/18 at 06:10; Stop 04/02/18 at 07:11; Status DC Cellulose (Surgicel Hemostat 2x3) 1 each STK-MED ONCE .ROUTE ; Start 04/02/18 at 06:10; Stop 04/02/18 at 07:11; Status DC Bisacodyl (Dulcolax Supp) 10 mg STK-MED ONCE .ROUTE ; Start 04/02/18 at 06:10; Stop 04/02/18 at 07:11; Status DC Iohexol (Omnipaque 300 Mg/ml) 100 ml STK-MED ONCE .ROUTE ; Start 04/02/18 at 06: 11; Stop 04/02/18 at 07:12; Status DC Lidocaine HCl (Xylocaine-Mpf 2% Vial) 2 ml STK-MED ONCE .ROUTE ; Start 04/02/18 at 07:30; Stop 04/02/18 at 07:31; Status DC Propofol 20 ml @ As Directed STK-MED ONCE IV ; Start 04/02/18 at 07:32; Stop 04/02 at 07:33; Status DC Lidocaine HCl (Xylocaine-Mpf 1% 5ml Vial) 5 ml STK-MED ONCE .ROUTE ; Start at 07:32; Stop 04/02/18 at 07:33; Status DC Rocuronium [place] (Zemuron) 100 mg STK-MED ONCE .ROUTE ; Start 04/02/18 at 07:32 ; Stop 04/02/18 at 07:33; Status DC Fentanyl Citrate (Fentanyl 5ml Vial) 250 mcg STK-MED ONCE .ROUTE ; Start at 07:33; Stop 04/02/18 at 07:34; Status DC Dexamethasone Sodium Phosphate (Decadron) 20 mg STK-MED ONCE .ROUTE ; Start 04/02 at 08:42; Stop 04/02/18 at 08:43; Status DC Ephedrine Sulfate (ePHEDrine PF IN SALINE SYRINGE) 50 mg STK-MED ONCE IV ; Start 04/02/18 at 08:42; Stop 04/02/18 at 08:43; Status DC Sodium Chloride 38.4 ml/Fentanyl Citrate 250 mcg/ Ropivacaine 10 ml/ Epidural Dosage Infused (Pha) 53.4 ml @ 0 mls/hr CONT PRN EP SEE PROTOCOL TABLE Last administered on 04/06/18at 06:11; Start 04/02/18 at 09:00 Naloxone HCl (Narcan) 0.1 mg PRN 1X PRN IV RESP DEPRESSION, MRX1; Start at 09:00 Bupivacaine HCl (Sensorcaine Mpf 0.25%) 30 ml STK-MED ONCE .ROUTE ; Start at 08:53; Stop 04/02/18 at 08:54; Status DC Famotidine (Pepcid Vial) 20 mg STK-MED ONCE .ROUTE ; Start 04/02/18 at 08:58; Stop 04/02/18 at 08:59; Status DC Hydrocortisone Sodium Succinate (Solu-CORTEF) 100 mg STK-MED ONCE .ROUTE ; Start 04/02/18 at 08:58; Stop 04/02/18 at 08:59; Status DC Diphenhydramine HCl (Benadryl) 50 mg STK-MED ONCE .ROUTE ; Start 04/02/18 at 08: 58; Stop 04/02/18 at 08:59; Status DC Metronidazole 200 ml @ 200 mls/hr 1X ONCE IV Last administered on 04/02/18at 09 :11; Start 04/02/18 at 09:15; Stop 04/02/18 at 10:14; Status DC Desflurane (Suprane) 90 ml STK-MED ONCE IH ; Start 04/02/18 at 09:21; Stop at 09:22; Status DC Glycopyrrolate (Robinul) 1 mg STK-MED ONCE .ROUTE ; Start 04/02/18 at 10:29; Stop 04/02/18 at 10:30; Status DC Neostigmine Methylsulfate (Neostigmine Methylsulfate) 5 mg STK-MED ONCE .ROUTE ; Start 04/02/18 at 10:29; Stop 04/02/18 at 10:30; Status DC Ondansetron HCl (Zofran) 4 mg STK-MED ONCE .ROUTE ; Start 04/02/18 at 10:30; Stop 04/02/18 at 10:31; Status DC Phenylephrine HCl (PHENYLEPHRINE in 0.9% NACL PF) 1 mg STK-MED ONCE IV ; Start 04/02/18 at 11:54; Stop 04/02/18 at 11:55; Status DC Cellulose (Surgicel Hemostat 4x8) 1 each STK-MED ONCE .ROUTE Last administered on 04/02/18at 12:00; Start 04/02/18 at 10:58; Stop 04/02/18 at 11:58; Status DC Sodium Chloride (Normal Saline Flush) 3 ml QSHIFT PRN IV AFTER MEDS AND BLOOD DRAWS; Start 04/02/18 at 13:45 Ringer's Solution 1,000 ml @ 125 mls/hr Q8H IV Last administered on 04/06/18at 06:07; Start 04/02/18 at 14:00 Ondansetron HCl (Zofran) 4 mg PRN Q6HRS PRN IV NAUESA, 1ST CHOICE Last administered on 04/06/18at 06:06; Start 04/02/18 at 13:45 Heparin Sodium (Porcine) (Heparin Sq) 5,000 unit Q12HR SQ Last administered on 04/06/18at 09:50; Start 04/03/18 at 09:00 Throat Lozenges (Chloraseptic) 1 spray PRN Q2HR PRN PO SORE THROAT; Start at 05:45 Dextrose (Dextrose 50%-Water Syringe) 12.5 gm PRN Q15MIN PRN IV SEE COMMENTS; Start 04/03/18 at 08:00 Ringer's Solution 500 ml @ 500 mls/hr 1X ONCE IV Last administered on at 11:30; Start 04/03/18 at 11:30; Stop 04/03/18 at 12:29; Status DC Insulin Human Lispro (HumaLOG) 0-5 UNITS TIDWMEALS SQ ; Start 04/03/18 at 17:00 Dextrose (Dextrose 50%-Water Syringe) 12.5 gm PRN Q15MIN PRN IV SEE COMMENTS; Start 04/03/18 at 13:30; Status UNV Famotidine (Pepcid Vial) 20 mg QHS IVP Last administered on 04/05/18at 19:22; Start 04/03/18 at 21:00 Oxycodone/ Acetaminophen (Percocet 5/325) 1 tab PRN Q4HRS PRN PO MODERATE PAIN ; Start 04/05/18 at 08:45 Active Scripts Active Reported Multivitamins (Multivitamin) 1 Each Tablet 1 Tab PO DAILY Zyrtec (Cetirizine Hcl) 10 Mg Tablet 1 Tab PO DAILY Hydrochlorothiazide Tablet (Hydrochlorothiazide) 25 Mg Tablet 25 Mg PO DAILY Ranitidine Hcl 150 Mg Capsule 150 Mg PO DAILY Allopurinol 100 Mg Tablet 100 Mg PO DAILY Vitals/I & O Vital Sign - Last 24 Hours 04/05/18 04/05/18 04/05/18 04/05/18 13:10 13:45 15:00 19:00 Temp 97.7 98.5 97.7 98.5 Pulse 76 69 Resp 16 16 18 18 B/P (MAP) 144/83 (103) 155/78 (103) Pulse Ox 94 96 O2 Delivery Room Air Nasal Cannula Nasal Cannula O2 Flow Rate 2.0 2.0 04/05/18 04/05/18 04/05/18 04/06/18 19:19 20:00 23:00 01:04 Temp 98.2 98.2 Pulse 72 Resp 18 B/P (MAP) 139/71 (93) Pulse Ox 96 O2 Delivery Nasal Cannula Nasal Cannula Nasal Cannula Nasal Cannula O2 Flow Rate 2.0 2.0 2.0 2.0 04/06/18 04/06/18 04/06/18 04/06/18 03:00 06:11 06:45 07:00 Temp 99.0 96.4 99.0 96.4 Pulse 66 63 Resp 18 18 B/P (MAP) 138/65 (89) 169/77 (107) Pulse Ox 100 100 93 O2 Delivery Nasal Cannula Nasal Cannula Nasal Cannula Room Air O2 Flow Rate 2.0 2.0 2.0 Intake and Output 04/05/18 04/05/18 04/06/18 15:00 23:00 07:00 Intake Total 1053.4 ml 1271 ml Output Total 1360 ml 850 ml Balance 1053.4 ml -89 ml -850 ml ELISA WESLEY MD Apr 06, 2018 11:46
--- NOTE | 2018-04-06 13:46 | PDOC ---
G I PROGRESS NOTE Subjective NG clamped. Feels some "rumbling". No stool/flatus yet. Physical Exam Lungs clear. RRR Abdomen soft, incisional tenderness. Rare bowel sounds. Review of Relevant I have reviewed the following items gladys (where applicable) has been applied. Labs Laboratory Tests Test 04/04/18 15:15 04/04/18 20:55 04/05/18 04:45 04/05/18 09:34 Glucose (Fingerstick) 107 mg/dL (70-99) 112 mg/dL (70-99) 134 mg/dL (70-99) White Blood Count 30.1 x10^3/uL (4.0-11.0) Red Blood Count 3.67 x10^6/uL (4.30-5.70) Hemoglobin 11.4 g/dL (13.0-17.5) Hematocrit 34.6 % (39.0-53.0) Mean Corpuscular Volume 94 fL (79-100) Mean Corpuscular Hemoglobin 31 pg (25-35) Mean Corpuscular Hemoglobin Concent 33 g/dL (31-37) Red Cell Distribution Width 14.1 % (11.5-14.5) Platelet Count 291 x10^3/uL (140-400) Neutrophils (%) (Auto) 76 % (31-73) Lymphocytes (%) (Auto) 8 % (24-48) Monocytes (%) (Auto) 16 % (0-9) Eosinophils (%) (Auto) 0 % (0-3) Basophils (%) (Auto) 0 % (0-3) Neutrophils # (Auto) 22.8 x10^3uL (1.8-7.7) Lymphocytes # (Auto) 2.4 x10^3/uL (1.0-4.8) Monocytes # (Auto) 4.7 x10^3/uL (0.0-1.1) Eosinophils # (Auto) 0.1 x10^3/uL (0.0-0.7) Basophils # (Auto) 0.1 x10^3/uL (0.0-0.2) Sodium Level 142 mmol/L (136-145) Potassium Level 4.2 mmol/L (3.5-5.1) Chloride Level 105 mmol/L (98-107) Carbon Dioxide Level 30 mmol/L (21-32) Anion Gap 7 (6-14) Blood Urea Nitrogen 18 mg/dL (8-26) Creatinine 1.2 mg/dL (0.7-1.3) Estimated GFR (Cockcroft-Gault) 66.4 BUN/Creatinine Ratio 15 (6-20) Glucose Level 124 mg/dL (70-99) Calcium Level 8.9 mg/dL (8.5-10.1) Total Bilirubin 0.7 mg/dL (0.2-1.0) Aspartate Amino Transf (AST/SGOT) 85 U/L (15-37) Alanine Aminotransferase (ALT/SGPT) 87 U/L (16-63) Alkaline Phosphatase 79 U/L (46-116) Total Protein 6.4 g/dL (6.4-8.2) Albumin 2.8 g/dL (3.4-5.0) Albumin/Globulin Ratio 0.8 (1.0-1.7) Test 04/05/18 15:20 04/05/18 21:36 04/06/18 04:23 04/06/18 04:25 Glucose (Fingerstick) 115 mg/dL (70-99) 107 mg/dL (70-99) White Blood Count 25.7 x10^3/uL (4.0-11.0) Red Blood Count 3.52 x10^6/uL (4.30-5.70) Hemoglobin 11.1 g/dL (13.0-17.5) Hematocrit 33.1 % (39.0-53.0) Mean Corpuscular Volume 94 fL (79-100) Mean Corpuscular Hemoglobin 32 pg (25-35) Mean Corpuscular Hemoglobin Concent 34 g/dL (31-37) Red Cell Distribution Width 13.7 % (11.5-14.5) Platelet Count 393 x10^3/uL (140-400) Neutrophils (%) (Auto) 75 % (31-73) Lymphocytes (%) (Auto) 9 % (24-48) Monocytes (%) (Auto) 16 % (0-9) Eosinophils (%) (Auto) 0 % (0-3) Basophils (%) (Auto) 0 % (0-3) Neutrophils # (Auto) 19.3 x10^3uL (1.8-7.7) Lymphocytes # (Auto) 2.2 x10^3/uL (1.0-4.8) Monocytes # (Auto) 4.0 x10^3/uL (0.0-1.1) Eosinophils # (Auto) 0.1 x10^3/uL (0.0-0.7) Basophils # (Auto) 0.1 x10^3/uL (0.0-0.2) Sodium Level 141 mmol/L (136-145) Potassium Level 3.6 mmol/L (3.5-5.1) Chloride Level 103 mmol/L (98-107) Carbon Dioxide Level 30 mmol/L (21-32) Anion Gap 8 (6-14) Blood Urea Nitrogen 16 mg/dL (8-26) Creatinine 1.1 mg/dL (0.7-1.3) Estimated GFR (Cockcroft-Gault) 73.4 BUN/Creatinine Ratio 15 (6-20) Glucose Level 99 mg/dL (70-99) Calcium Level 8.6 mg/dL (8.5-10.1) Total Bilirubin 0.8 mg/dL (0.2-1.0) Aspartate Amino Transf (AST/SGOT) 62 U/L (15-37) Alanine Aminotransferase (ALT/SGPT) 77 U/L (16-63) Alkaline Phosphatase 93 U/L (46-116) Total Protein 6.3 g/dL (6.4-8.2) Albumin 2.6 g/dL (3.4-5.0) Albumin/Globulin Ratio 0.7 (1.0-1.7) Test 04/06/18 06:12 Glucose (Fingerstick) 108 mg/dL (70-99) Laboratory Tests Test 04/05/18 15:20 04/05/18 21:36 04/06/18 04:23 04/06/18 04:25 Glucose (Fingerstick) 115 mg/dL (70-99) 107 mg/dL (70-99) White Blood Count 25.7 x10^3/uL (4.0-11.0) Red Blood Count 3.52 x10^6/uL (4.30-5.70) Hemoglobin 11.1 g/dL (13.0-17.5) Hematocrit 33.1 % (39.0-53.0) Mean Corpuscular Volume 94 fL (79-100) Mean Corpuscular Hemoglobin 32 pg (25-35) Mean Corpuscular Hemoglobin Concent 34 g/dL (31-37) Red Cell Distribution Width 13.7 % (11.5-14.5) Platelet Count 393 x10^3/uL (140-400) Neutrophils (%) (Auto) 75 % (31-73) Lymphocytes (%) (Auto) 9 % (24-48) Monocytes (%) (Auto) 16 % (0-9) Eosinophils (%) (Auto) 0 % (0-3) Basophils (%) (Auto) 0 % (0-3) Neutrophils # (Auto) 19.3 x10^3uL (1.8-7.7) Lymphocytes # (Auto) 2.2 x10^3/uL (1.0-4.8) Monocytes # (Auto) 4.0 x10^3/uL (0.0-1.1) Eosinophils # (Auto) 0.1 x10^3/uL (0.0-0.7) Basophils # (Auto) 0.1 x10^3/uL (0.0-0.2) Sodium Level 141 mmol/L (136-145) Potassium Level 3.6 mmol/L (3.5-5.1) Chloride Level 103 mmol/L (98-107) Carbon Dioxide Level 30 mmol/L (21-32) Anion Gap 8 (6-14) Blood Urea Nitrogen 16 mg/dL (8-26) Creatinine 1.1 mg/dL (0.7-1.3) Estimated GFR (Cockcroft-Gault) 73.4 BUN/Creatinine Ratio 15 (6-20) Glucose Level 99 mg/dL (70-99) Calcium Level 8.6 mg/dL (8.5-10.1) Total Bilirubin 0.8 mg/dL (0.2-1.0) Aspartate Amino Transf (AST/SGOT) 62 U/L (15-37) Alanine Aminotransferase (ALT/SGPT) 77 U/L (16-63) Alkaline Phosphatase 93 U/L (46-116) Total Protein 6.3 g/dL (6.4-8.2) Albumin 2.6 g/dL (3.4-5.0) Albumin/Globulin Ratio 0.7 (1.0-1.7) Test 04/06/18 06:12 Glucose (Fingerstick) 108 mg/dL (70-99) Path noted: pancreatic lesion serous cystadenoma. NORIEGA noted with some fibrosis on liver biopsy. Vitals/I & O Vital Sign - Last 24 Hours 04/05/18 04/05/18 04/05/18 04/05/18 13:45 15:00 19:00 19:19 Temp 97.7 98.5 97.7 98.5 Pulse 76 69 Resp 16 18 18 B/P (MAP) 144/83 (103) 155/78 (103) Pulse Ox 94 96 O2 Delivery Nasal Cannula Nasal Cannula Nasal Cannula O2 Flow Rate 2.0 2.0 2.0 04/05/18 04/05/18 04/06/18 04/06/18 20:00 23:00 01:04 03:00 Temp 98.2 99.0 98.2 99.0 Pulse 72 66 Resp 18 18 B/P (MAP) 139/71 (93) 138/65 (89) Pulse Ox 96 100 O2 Delivery Nasal Cannula Nasal Cannula Nasal Cannula Nasal Cannula O2 Flow Rate 2.0 2.0 2.0 2.0 04/06/18 04/06/18 04/06/18 04/06/18 06:11 06:45 07:00 11:00 Temp 96.4 97.9 96.4 97.9 Pulse 63 67 Resp 18 18 B/P (MAP) 169/77 (107) 162/82 (108) Pulse Ox 100 93 97 O2 Delivery Nasal Cannula Nasal Cannula Room Air Nasal Cannula O2 Flow Rate 2.0 2.0 2.0 04/06/18 12:26 Pulse Ox 93 O2 Delivery Nasal Cannula O2 Flow Rate 2.0 Intake and Output 04/05/18 04/05/18 04/06/18 15:00 23:00 07:00 Intake Total 1053.4 ml 1271 ml Output Total 1360 ml 850 ml Balance 1053.4 ml -89 ml -850 ml Assessment Postop ileus better? Benign pancreatic cyst. NORIEGA with some fibrosis. Plan of Care: Continue current Tx, Mgmt Plan of Care Note Long-term needs to lose weight, etc for the NORIEGA. TROY SMITH MD Apr 06, 2018 13:46
--- NOTE | 2018-04-06 14:44 | PDOC ---
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 No bowel sounds Jackson out - pain OK Plan: NGT trial as able Vitals Vitals Vital Signs Date Time Temp Pulse Resp B/P (MAP) Pulse Ox O2 Delivery O2 Flow Rate FiO2 04/06/18 13:00 93 Nasal Cannula 2.0 04/06/18 11:00 97.9 67 18 162/82 (108) 97.9 Physical Exam General: Alert, Oriented X3 Heart: Regular rate, Normal S1, Normal S2 Lungs: Clear Abdomen: Soft (wound vac intact) Extremities: No clubbing, No cyanosis, No edema Skin: No rashes, No breakdown Labs LABS Laboratory Tests Test 04/05/18 15:20 04/05/18 21:36 04/06/18 04:23 04/06/18 04:25 Glucose (Fingerstick) 115 mg/dL (70-99) 107 mg/dL (70-99) White Blood Count 25.7 x10^3/uL (4.0-11.0) Red Blood Count 3.52 x10^6/uL (4.30-5.70) Hemoglobin 11.1 g/dL (13.0-17.5) Hematocrit 33.1 % (39.0-53.0) Mean Corpuscular Volume 94 fL (79-100) Mean Corpuscular Hemoglobin 32 pg (25-35) Mean Corpuscular Hemoglobin Concent 34 g/dL (31-37) Red Cell Distribution Width 13.7 % (11.5-14.5) Platelet Count 393 x10^3/uL (140-400) Neutrophils (%) (Auto) 75 % (31-73) Lymphocytes (%) (Auto) 9 % (24-48) Monocytes (%) (Auto) 16 % (0-9) Eosinophils (%) (Auto) 0 % (0-3) Basophils (%) (Auto) 0 % (0-3) Neutrophils # (Auto) 19.3 x10^3uL (1.8-7.7) Lymphocytes # (Auto) 2.2 x10^3/uL (1.0-4.8) Monocytes # (Auto) 4.0 x10^3/uL (0.0-1.1) Eosinophils # (Auto) 0.1 x10^3/uL (0.0-0.7) Basophils # (Auto) 0.1 x10^3/uL (0.0-0.2) Sodium Level 141 mmol/L (136-145) Potassium Level 3.6 mmol/L (3.5-5.1) Chloride Level 103 mmol/L (98-107) Carbon Dioxide Level 30 mmol/L (21-32) Anion Gap 8 (6-14) Blood Urea Nitrogen 16 mg/dL (8-26) Creatinine 1.1 mg/dL (0.7-1.3) Estimated GFR (Cockcroft-Gault) 73.4 BUN/Creatinine Ratio 15 (6-20) Glucose Level 99 mg/dL (70-99) Calcium Level 8.6 mg/dL (8.5-10.1) Total Bilirubin 0.8 mg/dL (0.2-1.0) Aspartate Amino Transf (AST/SGOT) 62 U/L (15-37) Alanine Aminotransferase (ALT/SGPT) 77 U/L (16-63) Alkaline Phosphatase 93 U/L (46-116) Total Protein 6.3 g/dL (6.4-8.2) Albumin 2.6 g/dL (3.4-5.0) Albumin/Globulin Ratio 0.7 (1.0-1.7) Test 04/06/18 06:12 Glucose (Fingerstick) 108 mg/dL (70-99) Comment Review of Relevant I have reviewed the following items gladys (where applicable) has been applied. Labs Laboratory Tests Test 04/04/18 15:15 04/04/18 20:55 04/05/18 04:45 04/05/18 09:34 Glucose (Fingerstick) 107 mg/dL (70-99) 112 mg/dL (70-99) 134 mg/dL (70-99) White Blood Count 30.1 x10^3/uL (4.0-11.0) Red Blood Count 3.67 x10^6/uL (4.30-5.70) Hemoglobin 11.4 g/dL (13.0-17.5) Hematocrit 34.6 % (39.0-53.0) Mean Corpuscular Volume 94 fL (79-100) Mean Corpuscular Hemoglobin 31 pg (25-35) Mean Corpuscular Hemoglobin Concent 33 g/dL (31-37) Red Cell Distribution Width 14.1 % (11.5-14.5) Platelet Count 291 x10^3/uL (140-400) Neutrophils (%) (Auto) 76 % (31-73) Lymphocytes (%) (Auto) 8 % (24-48) Monocytes (%) (Auto) 16 % (0-9) Eosinophils (%) (Auto) 0 % (0-3) Basophils (%) (Auto) 0 % (0-3) Neutrophils # (Auto) 22.8 x10^3uL (1.8-7.7) Lymphocytes # (Auto) 2.4 x10^3/uL (1.0-4.8) Monocytes # (Auto) 4.7 x10^3/uL (0.0-1.1) Eosinophils # (Auto) 0.1 x10^3/uL (0.0-0.7) Basophils # (Auto) 0.1 x10^3/uL (0.0-0.2) Sodium Level 142 mmol/L (136-145) Potassium Level 4.2 mmol/L (3.5-5.1) Chloride Level 105 mmol/L (98-107) Carbon Dioxide Level 30 mmol/L (21-32) Anion Gap 7 (6-14) Blood Urea Nitrogen 18 mg/dL (8-26) Creatinine 1.2 mg/dL (0.7-1.3) Estimated GFR (Cockcroft-Gault) 66.4 BUN/Creatinine Ratio 15 (6-20) Glucose Level 124 mg/dL (70-99) Calcium Level 8.9 mg/dL (8.5-10.1) Total Bilirubin 0.7 mg/dL (0.2-1.0) Aspartate Amino Transf (AST/SGOT) 85 U/L (15-37) Alanine Aminotransferase (ALT/SGPT) 87 U/L (16-63) Alkaline Phosphatase 79 U/L (46-116) Total Protein 6.4 g/dL (6.4-8.2) Albumin 2.8 g/dL (3.4-5.0) Albumin/Globulin Ratio 0.8 (1.0-1.7) Test 04/05/18 15:20 04/05/18 21:36 04/06/18 04:23 04/06/18 04:25 Glucose (Fingerstick) 115 mg/dL (70-99) 107 mg/dL (70-99) White Blood Count 25.7 x10^3/uL (4.0-11.0) Red Blood Count 3.52 x10^6/uL (4.30-5.70) Hemoglobin 11.1 g/dL (13.0-17.5) Hematocrit 33.1 % (39.0-53.0) Mean Corpuscular Volume 94 fL (79-100) Mean Corpuscular Hemoglobin 32 pg (25-35) Mean Corpuscular Hemoglobin Concent 34 g/dL (31-37) Red Cell Distribution Width 13.7 % (11.5-14.5) Platelet Count 393 x10^3/uL (140-400) Neutrophils (%) (Auto) 75 % (31-73) Lymphocytes (%) (Auto) 9 % (24-48) Monocytes (%) (Auto) 16 % (0-9) Eosinophils (%) (Auto) 0 % (0-3) Basophils (%) (Auto) 0 % (0-3) Neutrophils # (Auto) 19.3 x10^3uL (1.8-7.7) Lymphocytes # (Auto) 2.2 x10^3/uL (1.0-4.8) Monocytes # (Auto) 4.0 x10^3/uL (0.0-1.1) Eosinophils # (Auto) 0.1 x10^3/uL (0.0-0.7) Basophils # (Auto) 0.1 x10^3/uL (0.0-0.2) Sodium Level 141 mmol/L (136-145) Potassium Level 3.6 mmol/L (3.5-5.1) Chloride Level 103 mmol/L (98-107) Carbon Dioxide Level 30 mmol/L (21-32) Anion Gap 8 (6-14) Blood Urea Nitrogen 16 mg/dL (8-26) Creatinine 1.1 mg/dL (0.7-1.3) Estimated GFR (Cockcroft-Gault) 73.4 BUN/Creatinine Ratio 15 (6-20) Glucose Level 99 mg/dL (70-99) Calcium Level 8.6 mg/dL (8.5-10.1) Total Bilirubin 0.8 mg/dL (0.2-1.0) Aspartate Amino Transf (AST/SGOT) 62 U/L (15-37) Alanine Aminotransferase (ALT/SGPT) 77 U/L (16-63) Alkaline Phosphatase 93 U/L (46-116) Total Protein 6.3 g/dL (6.4-8.2) Albumin 2.6 g/dL (3.4-5.0) Albumin/Globulin Ratio 0.7 (1.0-1.7) Test 04/06/18 06:12 Glucose (Fingerstick) 108 mg/dL (70-99) Laboratory Tests Test 04/05/18 15:20 04/05/18 21:36 04/06/18 04:23 04/06/18 04:25 Glucose (Fingerstick) 115 mg/dL (70-99) 107 mg/dL (70-99) White Blood Count 25.7 x10^3/uL (4.0-11.0) Red Blood Count 3.52 x10^6/uL (4.30-5.70) Hemoglobin 11.1 g/dL (13.0-17.5) Hematocrit 33.1 % (39.0-53.0) Mean Corpuscular Volume 94 fL (79-100) Mean Corpuscular Hemoglobin 32 pg (25-35) Mean Corpuscular Hemoglobin Concent 34 g/dL (31-37) Red Cell Distribution Width 13.7 % (11.5-14.5) Platelet Count 393 x10^3/uL (140-400) Neutrophils (%) (Auto) 75 % (31-73) Lymphocytes (%) (Auto) 9 % (24-48) Monocytes (%) (Auto) 16 % (0-9) Eosinophils (%) (Auto) 0 % (0-3) Basophils (%) (Auto) 0 % (0-3) Neutrophils # (Auto) 19.3 x10^3uL (1.8-7.7) Lymphocytes # (Auto) 2.2 x10^3/uL (1.0-4.8) Monocytes # (Auto) 4.0 x10^3/uL (0.0-1.1) Eosinophils # (Auto) 0.1 x10^3/uL (0.0-0.7) Basophils # (Auto) 0.1 x10^3/uL (0.0-0.2) Sodium Level 141 mmol/L (136-145) Potassium Level 3.6 mmol/L (3.5-5.1) Chloride Level 103 mmol/L (98-107) Carbon Dioxide Level 30 mmol/L (21-32) Anion Gap 8 (6-14) Blood Urea Nitrogen 16 mg/dL (8-26) Creatinine 1.1 mg/dL (0.7-1.3) Estimated GFR (Cockcroft-Gault) 73.4 BUN/Creatinine Ratio 15 (6-20) Glucose Level 99 mg/dL (70-99) Calcium Level 8.6 mg/dL (8.5-10.1) Total Bilirubin 0.8 mg/dL (0.2-1.0) Aspartate Amino Transf (AST/SGOT) 62 U/L (15-37) Alanine Aminotransferase (ALT/SGPT) 77 U/L (16-63) Alkaline Phosphatase 93 U/L (46-116) Total Protein 6.3 g/dL (6.4-8.2) Albumin 2.6 g/dL (3.4-5.0) Albumin/Globulin Ratio 0.7 (1.0-1.7) Test 04/06/18 06:12 Glucose (Fingerstick) 108 mg/dL (70-99) Medications Current Medications Heparin Sodium (Porcine) 1000 unit/Sodium Chloride 1,001 ml @ 1,001 mls/hr 1X ONCE IRR ; Start 04/02/18 at 06:00; Stop 04/02/18 at 06:59; Status DC Cefazolin Sodium/ Dextrose 50 ml @ 100 mls/hr 1X PREOP PRN IV PRIOR TO PROCEDURE Last administered on 04/02/18at 08:43; Start 04/02/18 at 06:00; Stop 04/02 at 18:00; Status DC Ondansetron HCl (Zofran) 4 mg PRN Q6HRS PRN IV NAUSEA/VOMITING Last administered on 04/02/18at 17:33; Start 04/02/18 at 07:00; Stop 04/03/18 at 06:59; Status DC Fentanyl Citrate (Fentanyl 2ml Vial) 25 mcg PRN Q5MIN PRN IV MILD PAIN; Start 04/02/18 at 07:00; Stop 04/03/18 at 06:59; Status DC Fentanyl Citrate (Fentanyl 2ml Vial) 50 mcg PRN Q5MIN PRN IV MODERATE TO SEVERE PAIN; Start 04/02/18 at 07:00; Stop 04/03/18 at 06:59; Status DC Morphine Sulfate (Morphine Sulfate) 1 mg PRN Q10MIN PRN IV SEVERE PAIN; Start 04/02/18 at 07:00; Stop 04/03/18 at 06:59; Status DC Ringer's Solution 1,000 ml @ 30 mls/hr Q24H IV Last administered on 04/02/18at 07:00; Start 04/02/18 at 07:00; Stop 04/02/18 at 18:59; Status DC Lidocaine HCl (Xylocaine-Mpf 1% 2ml Vial) 2 ml PRN 1X PRN ID IV START; Start at 07:00; Stop 04/03/18 at 06:59; Status DC Hydromorphone HCl (Dilaudid) 0.5 mg PRN Q10MIN PRN IV SEV PAIN, Second choice; Start 04/02/18 at 07:00; Stop 04/03/18 at 06:59; Status DC Prochlorperazine Edisylate (Compazine) 5 mg PACU PRN PRN IV NAUSEA, MRX1; Start 04/02/18 at 07:00; Stop 04/03/18 at 06:59; Status DC Bupivacaine HCl/ Epinephrine Bitart (Marcaine-Epi 0.5%-[id number]) 50 ml STK-MED ONCE .ROUTE Last administered on 04/02/18at 09:00; Start 04/02/18 at 05:50; Stop 04/02/18 at 06:50; Status DC Cellulose (Surgicel Hemostat 2x3) 1 each STK-MED ONCE .ROUTE ; Start 04/02/18 at 05:50; Stop 04/02/18 at 06:50; Status DC Iohexol (Omnipaque 300 Mg/ml) 100 ml STK-MED ONCE .ROUTE ; Start 04/02/18 at 05: 50; Stop 04/02/18 at 06:50; Status DC Bisacodyl (Dulcolax Supp) 10 mg STK-MED ONCE .ROUTE ; Start 04/02/18 at 05:50; Stop 04/02/18 at 06:51; Status DC Bupivacaine HCl/ Epinephrine Bitart (Marcaine-Epi 0.5%-[id number]) 50 ml STK-MED ONCE .ROUTE ; Start 04/02/18 at 06:10; Stop 04/02/18 at 07:11; Status DC Cellulose (Surgicel Hemostat 2x3) 1 each STK-MED ONCE .ROUTE ; Start 04/02/18 at 06:10; Stop 04/02/18 at 07:11; Status DC Bisacodyl (Dulcolax Supp) 10 mg STK-MED ONCE .ROUTE ; Start 04/02/18 at 06:10; Stop 04/02/18 at 07:11; Status DC Iohexol (Omnipaque 300 Mg/ml) 100 ml STK-MED ONCE .ROUTE ; Start 04/02/18 at 06: 11; Stop 04/02/18 at 07:12; Status DC Lidocaine HCl (Xylocaine-Mpf 2% Vial) 2 ml STK-MED ONCE .ROUTE ; Start 04/02/18 at 07:30; Stop 04/02/18 at 07:31; Status DC Propofol 20 ml @ As Directed STK-MED ONCE IV ; Start 04/02/18 at 07:32; Stop 04/02 at 07:33; Status DC Lidocaine HCl (Xylocaine-Mpf 1% 5ml Vial) 5 ml STK-MED ONCE .ROUTE ; Start at 07:32; Stop 04/02/18 at 07:33; Status DC Rocuronium [place] (Zemuron) 100 mg STK-MED ONCE .ROUTE ; Start 04/02/18 at 07:32 ; Stop 04/02/18 at 07:33; Status DC Fentanyl Citrate (Fentanyl 5ml Vial) 250 mcg STK-MED ONCE .ROUTE ; Start at 07:33; Stop 04/02/18 at 07:34; Status DC Dexamethasone Sodium Phosphate (Decadron) 20 mg STK-MED ONCE .ROUTE ; Start 04/02 at 08:42; Stop 04/02/18 at 08:43; Status DC Ephedrine Sulfate (ePHEDrine PF IN SALINE SYRINGE) 50 mg STK-MED ONCE IV ; Start 04/02/18 at 08:42; Stop 04/02/18 at 08:43; Status DC Sodium Chloride 38.4 ml/Fentanyl Citrate 250 mcg/ Ropivacaine 10 ml/ Epidural Dosage Infused (Pha) 53.4 ml @ 0 mls/hr CONT PRN EP SEE PROTOCOL TABLE Last administered on 04/06/18at 12:26; Start 04/02/18 at 09:00 Naloxone HCl (Narcan) 0.1 mg PRN 1X PRN IV RESP DEPRESSION, MRX1; Start at 09:00 Bupivacaine HCl (Sensorcaine Mpf 0.25%) 30 ml STK-MED ONCE .ROUTE ; Start at 08:53; Stop 04/02/18 at 08:54; Status DC Famotidine (Pepcid Vial) 20 mg STK-MED ONCE .ROUTE ; Start 04/02/18 at 08:58; Stop 04/02/18 at 08:59; Status DC Hydrocortisone Sodium Succinate (Solu-CORTEF) 100 mg STK-MED ONCE .ROUTE ; Start 04/02/18 at 08:58; Stop 04/02/18 at 08:59; Status DC Diphenhydramine HCl (Benadryl) 50 mg STK-MED ONCE .ROUTE ; Start 04/02/18 at 08: 58; Stop 04/02/18 at 08:59; Status DC Metronidazole 200 ml @ 200 mls/hr 1X ONCE IV Last administered on 04/02/18at 09 :11; Start 04/02/18 at 09:15; Stop 04/02/18 at 10:14; Status DC Desflurane (Suprane) 90 ml STK-MED ONCE IH ; Start 04/02/18 at 09:21; Stop at 09:22; Status DC Glycopyrrolate (Robinul) 1 mg STK-MED ONCE .ROUTE ; Start 04/02/18 at 10:29; Stop 04/02/18 at 10:30; Status DC Neostigmine Methylsulfate (Neostigmine Methylsulfate) 5 mg STK-MED ONCE .ROUTE ; Start 04/02/18 at 10:29; Stop 04/02/18 at 10:30; Status DC Ondansetron HCl (Zofran) 4 mg STK-MED ONCE .ROUTE ; Start 04/02/18 at 10:30; Stop 04/02/18 at 10:31; Status DC Phenylephrine HCl (PHENYLEPHRINE in 0.9% NACL PF) 1 mg STK-MED ONCE IV ; Start 04/02/18 at 11:54; Stop 04/02/18 at 11:55; Status DC Cellulose (Surgicel Hemostat 4x8) 1 each STK-MED ONCE .ROUTE Last administered on 04/02/18at 12:00; Start 04/02/18 at 10:58; Stop 04/02/18 at 11:58; Status DC Sodium Chloride (Normal Saline Flush) 3 ml QSHIFT PRN IV AFTER MEDS AND BLOOD DRAWS; Start 04/02/18 at 13:45 Ringer's Solution 1,000 ml @ 125 mls/hr Q8H IV Last administered on 04/06/18at 06:07; Start 04/02/18 at 14:00 Ondansetron HCl (Zofran) 4 mg PRN Q6HRS PRN IV NAUESA, 1ST CHOICE Last administered on 04/06/18at 12:26; Start 04/02/18 at 13:45 Heparin Sodium (Porcine) (Heparin Sq) 5,000 unit Q12HR SQ Last administered on 04/06/18at 09:50; Start 04/03/18 at 09:00 Throat Lozenges (Chloraseptic) 1 spray PRN Q2HR PRN PO SORE THROAT; Start at 05:45 Dextrose (Dextrose 50%-Water Syringe) 12.5 gm PRN Q15MIN PRN IV SEE COMMENTS; Start 04/03/18 at 08:00 Ringer's Solution 500 ml @ 500 mls/hr 1X ONCE IV Last administered on at 11:30; Start 04/03/18 at 11:30; Stop 04/03/18 at 12:29; Status DC Insulin Human Lispro (HumaLOG) 0-5 UNITS TIDWMEALS SQ ; Start 04/03/18 at 17:00 Dextrose (Dextrose 50%-Water Syringe) 12.5 gm PRN Q15MIN PRN IV SEE COMMENTS; Start 04/03/18 at 13:30; Status UNV Famotidine (Pepcid Vial) 20 mg QHS IVP Last administered on 04/05/18at 19:22; Start 04/03/18 at 21:00 Oxycodone/ Acetaminophen (Percocet 5/325) 1 tab PRN Q4HRS PRN PO MODERATE PAIN ; Start 04/05/18 at 08:45 Active Scripts Active Reported Multivitamins (Multivitamin) 1 Each Tablet 1 Tab PO DAILY Zyrtec (Cetirizine Hcl) 10 Mg Tablet 1 Tab PO DAILY Hydrochlorothiazide Tablet (Hydrochlorothiazide) 25 Mg Tablet 25 Mg PO DAILY Ranitidine Hcl 150 Mg Capsule 150 Mg PO DAILY Allopurinol 100 Mg Tablet 100 Mg PO DAILY Vitals/I & O Vital Sign - Last 24 Hours 04/05/18 04/05/18 04/05/18 04/05/18 15:00 19:00 19:19 20:00 Temp 97.7 98.5 97.7 98.5 Pulse 76 69 Resp 18 18 B/P (MAP) 144/83 (103) 155/78 (103) Pulse Ox 94 96 O2 Delivery Nasal Cannula Nasal Cannula Nasal Cannula Nasal Cannula O2 Flow Rate 2.0 2.0 2.0 2.0 04/05/18 04/06/18 04/06/18 04/06/18 23:00 01:04 03:00 06:11 Temp 98.2 99.0 98.2 99.0 Pulse 72 66 Resp 18 18 B/P (MAP) 139/71 (93) 138/65 (89) Pulse Ox 96 100 O2 Delivery Nasal Cannula Nasal Cannula Nasal Cannula Nasal Cannula O2 Flow Rate 2.0 2.0 2.0 2.0 04/06/18 04/06/18 04/06/18 04/06/18 07:00 11:00 12:26 13:00 Temp 96.4 97.9 96.4 97.9 Pulse 63 67 Resp 18 18 B/P (MAP) 169/77 (107) 162/82 (108) Pulse Ox 93 97 93 93 O2 Delivery Room Air Nasal Cannula Nasal Cannula Nasal Cannula O2 Flow Rate 2.0 2.0 2.0 Intake and Output 04/05/18 04/05/18 04/06/18 15:00 23:00 07:00 Intake Total 1053.4 ml 1271 ml Output Total 1360 ml 850 ml Balance 1053.4 ml -89 ml -850 ml BOLIVAR HAYES MD Apr 06, 2018 14:44
[2018-04-06 15:00] VITALS: BP 155/81
[2018-04-06] MEDS: AMINO AC 3%/ELECTROLYTE/GLYCER 1,000 ML IV SCH (16:07)
[2018-04-06 19:00] VITALS: BP 144/73
[2018-04-06] MEDS: FAMOTIDINE 20 MG/2 ML VIAL IVP SCH (21:28)
[2018-04-06 23:00] VITALS: BP 147/76
[2018-04-07] MEDS: FENTANYL EP PRN ×2 (00:40→06:52)
[2018-04-07] MEDS: ROPIVACAINE 0.5% EP PRN ×2 (00:40→06:52)
[2018-04-07] MEDS: NORMAL SALINE EP PRN ×2 (00:40→06:52)
[2018-04-07] MEDS: [UNRECOGNIZED DRUG - OTHER] EP PRN ×2 (00:40→06:52)
[2018-04-07] MEDS: ONDANSETRON PF 4 MG/2 ML VIAL. IV PRN ×2 (01:11→10:56)
[2018-04-07 03:00] VITALS: BP 143/78
[2018-04-07] MEDS: AMINO AC 3%/ELECTROLYTE/GLYCER 1,000 ML IV SCH (05:25)
[2018-04-07 06:03] LABS: ALBUMIN 2.7 g/dL (3.4-5.0); ALBUMIN/GLOBULIN RATIO 0.7 (1.0-1.7); CALCIUM 9.1 mg/dL (8.5-10.1); CREATININE 1.1 mg/dL (0.7-1.3); GFR 73.4; POTASSIUM 3.5 mmol/L (3.5-5.1); TOTAL BILIRUBIN 0.9 mg/dL (0.2-1.0); TOTAL PROTEIN 6.8 g/dL (6.4-8.2)
[2018-04-07 07:00] VITALS: BP 145/86
[2018-04-07] MEDS: INSULIN LISPRO 300 UNITS/3 ML INSULN.PEN. SQ SCH ×3 (08:00→17:00)
[2018-04-07] MEDS: HEPARIN PF for SUB-Q USE 5,000 UNIT/0.5 ML VIAL. SQ SCH (09:14)
[2018-04-07 11:00] VITALS: BP 163/87
--- NOTE | 2018-04-07 11:17 | PDOC ---
G I PROGRESS NOTE Subjective Has stooled. Awaiting d/c NG. Physical Exam Lungs clear. RRR Abdomen with incisional tenderness. Review of Relevant I have reviewed the following items gladys (where applicable) has been applied. Labs Laboratory Tests Test 04/05/18 15:20 04/05/18 21:36 04/06/18 04:23 04/06/18 04:25 Glucose (Fingerstick) 115 mg/dL (70-99) 107 mg/dL (70-99) White Blood Count 25.7 x10^3/uL (4.0-11.0) Red Blood Count 3.52 x10^6/uL (4.30-5.70) Hemoglobin 11.1 g/dL (13.0-17.5) Hematocrit 33.1 % (39.0-53.0) Mean Corpuscular Volume 94 fL (79-100) Mean Corpuscular Hemoglobin 32 pg (25-35) Mean Corpuscular Hemoglobin Concent 34 g/dL (31-37) Red Cell Distribution Width 13.7 % (11.5-14.5) Platelet Count 393 x10^3/uL (140-400) Neutrophils (%) (Auto) 75 % (31-73) Lymphocytes (%) (Auto) 9 % (24-48) Monocytes (%) (Auto) 16 % (0-9) Eosinophils (%) (Auto) 0 % (0-3) Basophils (%) (Auto) 0 % (0-3) Neutrophils # (Auto) 19.3 x10^3uL (1.8-7.7) Lymphocytes # (Auto) 2.2 x10^3/uL (1.0-4.8) Monocytes # (Auto) 4.0 x10^3/uL (0.0-1.1) Eosinophils # (Auto) 0.1 x10^3/uL (0.0-0.7) Basophils # (Auto) 0.1 x10^3/uL (0.0-0.2) Sodium Level 141 mmol/L (136-145) Potassium Level 3.6 mmol/L (3.5-5.1) Chloride Level 103 mmol/L (98-107) Carbon Dioxide Level 30 mmol/L (21-32) Anion Gap 8 (6-14) Blood Urea Nitrogen 16 mg/dL (8-26) Creatinine 1.1 mg/dL (0.7-1.3) Estimated GFR (Cockcroft-Gault) 73.4 BUN/Creatinine Ratio 15 (6-20) Glucose Level 99 mg/dL (70-99) Calcium Level 8.6 mg/dL (8.5-10.1) Total Bilirubin 0.8 mg/dL (0.2-1.0) Aspartate Amino Transf (AST/SGOT) 62 U/L (15-37) Alanine Aminotransferase (ALT/SGPT) 77 U/L (16-63) Alkaline Phosphatase 93 U/L (46-116) Total Protein 6.3 g/dL (6.4-8.2) Albumin 2.6 g/dL (3.4-5.0) Albumin/Globulin Ratio 0.7 (1.0-1.7) Test 04/06/18 06:12 04/06/18 09:33 04/06/18 16:37 04/06/18 20:34 Glucose (Fingerstick) 108 mg/dL (70-99) 121 mg/dL (70-99) 97 mg/dL (70-99) 109 mg/dL (70-99) Test 04/07/18 04:15 04/07/18 07:32 04/07/18 10:58 Sodium Level 139 mmol/L (136-145) Potassium Level 3.5 mmol/L (3.5-5.1) Chloride Level 101 mmol/L (98-107) Carbon Dioxide Level 29 mmol/L (21-32) Anion Gap 9 (6-14) Blood Urea Nitrogen 14 mg/dL (8-26) Creatinine 1.1 mg/dL (0.7-1.3) Estimated GFR (Cockcroft-Gault) 73.4 BUN/Creatinine Ratio 13 (6-20) Glucose Level 92 mg/dL (70-99) Calcium Level 9.1 mg/dL (8.5-10.1) Total Bilirubin 0.9 mg/dL (0.2-1.0) Aspartate Amino Transf (AST/SGOT) 52 U/L (15-37) Alanine Aminotransferase (ALT/SGPT) 86 U/L (16-63) Alkaline Phosphatase 115 U/L (46-116) Total Protein 6.8 g/dL (6.4-8.2) Albumin 2.7 g/dL (3.4-5.0) Albumin/Globulin Ratio 0.7 (1.0-1.7) Glucose (Fingerstick) 123 mg/dL (70-99) 111 mg/dL (70-99) Laboratory Tests Test 04/06/18 16:37 04/06/18 20:34 04/07/18 04:15 04/07/18 07:32 Glucose (Fingerstick) 97 mg/dL (70-99) 109 mg/dL (70-99) 123 mg/dL (70-99) Sodium Level 139 mmol/L (136-145) Potassium Level 3.5 mmol/L (3.5-5.1) Chloride Level 101 mmol/L (98-107) Carbon Dioxide Level 29 mmol/L (21-32) Anion Gap 9 (6-14) Blood Urea Nitrogen 14 mg/dL (8-26) Creatinine 1.1 mg/dL (0.7-1.3) Estimated GFR (Cockcroft-Gault) 73.4 BUN/Creatinine Ratio 13 (6-20) Glucose Level 92 mg/dL (70-99) Calcium Level 9.1 mg/dL (8.5-10.1) Total Bilirubin 0.9 mg/dL (0.2-1.0) Aspartate Amino Transf (AST/SGOT) 52 U/L (15-37) Alanine Aminotransferase (ALT/SGPT) 86 U/L (16-63) Alkaline Phosphatase 115 U/L (46-116) Total Protein 6.8 g/dL (6.4-8.2) Albumin 2.7 g/dL (3.4-5.0) Albumin/Globulin Ratio 0.7 (1.0-1.7) Test 04/07/18 10:58 Glucose (Fingerstick) 111 mg/dL (70-99) Vitals/I & O Vital Sign - Last 24 Hours 04/06/18 04/06/18 04/06/18 04/06/18 12:26 15:00 19:00 19:04 Temp 98.4 98.6 98.4 98.6 Pulse 70 78 Resp 18 18 16 B/P (MAP) 155/81 (105) 144/73 (96) Pulse Ox 93 92 98 O2 Delivery Nasal Cannula Room Air Nasal Cannula Room Air O2 Flow Rate 2.0 2.0 04/06/18 04/06/18 04/07/18 04/07/18 20:05 23:00 00:40 01:10 Temp 99.5 99.5 Pulse 74 Resp 18 18 B/P (MAP) 147/76 (99) Pulse Ox 96 96 O2 Delivery Nasal Cannula Nasal Cannula Nasal Cannula O2 Flow Rate 2.0 2.0 2.0 04/07/18 04/07/18 04/07/18 04/07/18 03:00 06:52 07:00 07:30 Temp 99.5 98.2 99.5 98.2 Pulse 66 73 Resp 18 16 16 B/P (MAP) 143/78 (99) 145/86 (105) Pulse Ox 96 94 96 O2 Delivery Nasal Cannula Room Air Nasal Cannula Nasal Cannula O2 Flow Rate 2.0 2.0 2.0 Intake and Output 04/06/18 04/06/18 04/07/18 15:00 23:00 07:00 Intake Total 1825 ml 2240 ml Output Total 2400 ml Balance 1825 ml -160 ml Assessment S/p partial pancreatectomy for serous cystadenoma. Progressing. NORIEGA with some fibrosis. Plan of Care: Continue current Tx, Mgmt Plan of Care Note When eating, diabetic diet even though not diabetic. Exercise, lose weight-->improve insulin resistance. TROY SMITH MD Apr 07, 2018 11:17
[2018-04-07] MEDS ORDERED: CETIRIZINE HCL 10 MG TABLET. PO PRN (11:30)
--- NOTE | 2018-04-07 11:52 | PDOC ---
PROGRESS NOTES Subjective Subjective better, no further nausea, had a stool Objective Objective Vital Signs Date Time Temp Pulse Resp B/P (MAP) Pulse Ox O2 Delivery O2 Flow Rate FiO2 04/07/18 07:30 96 Nasal Cannula 2.0 04/07/18 07:00 98.2 73 16 145/86 (105) 98.2 Intake and Output 04/07/18 07:00 Intake Total 4065 ml Output Total 2400 ml Balance 1665 ml Intake Oral 240 ml IV Total 2825 ml Other 1000 ml Output Urine Total 2400 ml # Voids 3 # Bowel Movements 1 Physical Exam Abdomen: Soft Assessment Assessment S/P pancreatectomy/splenectomy Plan Plan of Care DC NG, DC epidural, advance diet Comment Review of Relevant I have reviewed the following items gladys (where applicable) has been applied. Labs Laboratory Tests Test 04/05/18 15:20 04/05/18 21:36 04/06/18 04:23 04/06/18 04:25 Glucose (Fingerstick) 115 mg/dL (70-99) 107 mg/dL (70-99) White Blood Count 25.7 x10^3/uL (4.0-11.0) Red Blood Count 3.52 x10^6/uL (4.30-5.70) Hemoglobin 11.1 g/dL (13.0-17.5) Hematocrit 33.1 % (39.0-53.0) Mean Corpuscular Volume 94 fL (79-100) Mean Corpuscular Hemoglobin 32 pg (25-35) Mean Corpuscular Hemoglobin Concent 34 g/dL (31-37) Red Cell Distribution Width 13.7 % (11.5-14.5) Platelet Count 393 x10^3/uL (140-400) Neutrophils (%) (Auto) 75 % (31-73) Lymphocytes (%) (Auto) 9 % (24-48) Monocytes (%) (Auto) 16 % (0-9) Eosinophils (%) (Auto) 0 % (0-3) Basophils (%) (Auto) 0 % (0-3) Neutrophils # (Auto) 19.3 x10^3uL (1.8-7.7) Lymphocytes # (Auto) 2.2 x10^3/uL (1.0-4.8) Monocytes # (Auto) 4.0 x10^3/uL (0.0-1.1) Eosinophils # (Auto) 0.1 x10^3/uL (0.0-0.7) Basophils # (Auto) 0.1 x10^3/uL (0.0-0.2) Sodium Level 141 mmol/L (136-145) Potassium Level 3.6 mmol/L (3.5-5.1) Chloride Level 103 mmol/L (98-107) Carbon Dioxide Level 30 mmol/L (21-32) Anion Gap 8 (6-14) Blood Urea Nitrogen 16 mg/dL (8-26) Creatinine 1.1 mg/dL (0.7-1.3) Estimated GFR (Cockcroft-Gault) 73.4 BUN/Creatinine Ratio 15 (6-20) Glucose Level 99 mg/dL (70-99) Calcium Level 8.6 mg/dL (8.5-10.1) Total Bilirubin 0.8 mg/dL (0.2-1.0) Aspartate Amino Transf (AST/SGOT) 62 U/L (15-37) Alanine Aminotransferase (ALT/SGPT) 77 U/L (16-63) Alkaline Phosphatase 93 U/L (46-116) Total Protein 6.3 g/dL (6.4-8.2) Albumin 2.6 g/dL (3.4-5.0) Albumin/Globulin Ratio 0.7 (1.0-1.7) Test 04/06/18 06:12 04/06/18 09:33 04/06/18 16:37 04/06/18 20:34 Glucose (Fingerstick) 108 mg/dL (70-99) 121 mg/dL (70-99) 97 mg/dL (70-99) 109 mg/dL (70-99) Test 04/07/18 04:15 04/07/18 07:32 04/07/18 10:58 Sodium Level 139 mmol/L (136-145) Potassium Level 3.5 mmol/L (3.5-5.1) Chloride Level 101 mmol/L (98-107) Carbon Dioxide Level 29 mmol/L (21-32) Anion Gap 9 (6-14) Blood Urea Nitrogen 14 mg/dL (8-26) Creatinine 1.1 mg/dL (0.7-1.3) Estimated GFR (Cockcroft-Gault) 73.4 BUN/Creatinine Ratio 13 (6-20) Glucose Level 92 mg/dL (70-99) Calcium Level 9.1 mg/dL (8.5-10.1) Total Bilirubin 0.9 mg/dL (0.2-1.0) Aspartate Amino Transf (AST/SGOT) 52 U/L (15-37) Alanine Aminotransferase (ALT/SGPT) 86 U/L (16-63) Alkaline Phosphatase 115 U/L (46-116) Total Protein 6.8 g/dL (6.4-8.2) Albumin 2.7 g/dL (3.4-5.0) Albumin/Globulin Ratio 0.7 (1.0-1.7) Glucose (Fingerstick) 123 mg/dL (70-99) 111 mg/dL (70-99) Laboratory Tests Test 04/06/18 16:37 04/06/18 20:34 04/07/18 04:15 04/07/18 07:32 Glucose (Fingerstick) 97 mg/dL (70-99) 109 mg/dL (70-99) 123 mg/dL (70-99) Sodium Level 139 mmol/L (136-145) Potassium Level 3.5 mmol/L (3.5-5.1) Chloride Level 101 mmol/L (98-107) Carbon Dioxide Level 29 mmol/L (21-32) Anion Gap 9 (6-14) Blood Urea Nitrogen 14 mg/dL (8-26) Creatinine 1.1 mg/dL (0.7-1.3) Estimated GFR (Cockcroft-Gault) 73.4 BUN/Creatinine Ratio 13 (6-20) Glucose Level 92 mg/dL (70-99) Calcium Level 9.1 mg/dL (8.5-10.1) Total Bilirubin 0.9 mg/dL (0.2-1.0) Aspartate Amino Transf (AST/SGOT) 52 U/L (15-37) Alanine Aminotransferase (ALT/SGPT) 86 U/L (16-63) Alkaline Phosphatase 115 U/L (46-116) Total Protein 6.8 g/dL (6.4-8.2) Albumin 2.7 g/dL (3.4-5.0) Albumin/Globulin Ratio 0.7 (1.0-1.7) Test 04/07/18 10:58 Glucose (Fingerstick) 111 mg/dL (70-99) Medications Current Medications Heparin Sodium (Porcine) 1000 unit/Sodium Chloride 1,001 ml @ 1,001 mls/hr 1X ONCE IRR ; Start 04/02/18 at 06:00; Stop 04/02/18 at 06:59; Status DC Cefazolin Sodium/ Dextrose 50 ml @ 100 mls/hr 1X PREOP PRN IV PRIOR TO PROCEDURE Last administered on 04/02/18at 08:43; Start 04/02/18 at 06:00; Stop 04/02 at 18:00; Status DC Ondansetron HCl (Zofran) 4 mg PRN Q6HRS PRN IV NAUSEA/VOMITING Last administered on 04/02/18at 17:33; Start 04/02/18 at 07:00; Stop 04/03/18 at 06:59; Status DC Fentanyl Citrate (Fentanyl 2ml Vial) 25 mcg PRN Q5MIN PRN IV MILD PAIN; Start 04/02/18 at 07:00; Stop 04/03/18 at 06:59; Status DC Fentanyl Citrate (Fentanyl 2ml Vial) 50 mcg PRN Q5MIN PRN IV MODERATE TO SEVERE PAIN; Start 04/02/18 at 07:00; Stop 04/03/18 at 06:59; Status DC Morphine Sulfate (Morphine Sulfate) 1 mg PRN Q10MIN PRN IV SEVERE PAIN; Start 04/02/18 at 07:00; Stop 04/03/18 at 06:59; Status DC Ringer's Solution 1,000 ml @ 30 mls/hr Q24H IV Last administered on 04/02/18at 07:00; Start 04/02/18 at 07:00; Stop 04/02/18 at 18:59; Status DC Lidocaine HCl (Xylocaine-Mpf 1% 2ml Vial) 2 ml PRN 1X PRN ID IV START; Start at 07:00; Stop 04/03/18 at 06:59; Status DC Hydromorphone HCl (Dilaudid) 0.5 mg PRN Q10MIN PRN IV SEV PAIN, Second choice; Start 04/02/18 at 07:00; Stop 04/03/18 at 06:59; Status DC Prochlorperazine Edisylate (Compazine) 5 mg PACU PRN PRN IV NAUSEA, MRX1; Start 04/02/18 at 07:00; Stop 04/03/18 at 06:59; Status DC Bupivacaine HCl/ Epinephrine Bitart (Marcaine-Epi 0.5%-[id number]) 50 ml STK-MED ONCE .ROUTE Last administered on 04/02/18at 09:00; Start 04/02/18 at 05:50; Stop 04/02/18 at 06:50; Status DC Cellulose (Surgicel Hemostat 2x3) 1 each STK-MED ONCE .ROUTE ; Start 04/02/18 at 05:50; Stop 04/02/18 at 06:50; Status DC Iohexol (Omnipaque 300 Mg/ml) 100 ml STK-MED ONCE .ROUTE ; Start 04/02/18 at 05: 50; Stop 04/02/18 at 06:50; Status DC Bisacodyl (Dulcolax Supp) 10 mg STK-MED ONCE .ROUTE ; Start 04/02/18 at 05:50; Stop 04/02/18 at 06:51; Status DC Bupivacaine HCl/ Epinephrine Bitart (Marcaine-Epi 0.5%-[id number]) 50 ml STK-MED ONCE .ROUTE ; Start 04/02/18 at 06:10; Stop 04/02/18 at 07:11; Status DC Cellulose (Surgicel Hemostat 2x3) 1 each STK-MED ONCE .ROUTE ; Start 04/02/18 at 06:10; Stop 04/02/18 at 07:11; Status DC Bisacodyl (Dulcolax Supp) 10 mg STK-MED ONCE .ROUTE ; Start 04/02/18 at 06:10; Stop 04/02/18 at 07:11; Status DC Iohexol (Omnipaque 300 Mg/ml) 100 ml STK-MED ONCE .ROUTE ; Start 04/02/18 at 06: 11; Stop 04/02/18 at 07:12; Status DC Lidocaine HCl (Xylocaine-Mpf 2% Vial) 2 ml STK-MED ONCE .ROUTE ; Start 04/02/18 at 07:30; Stop 04/02/18 at 07:31; Status DC Propofol 20 ml @ As Directed STK-MED ONCE IV ; Start 04/02/18 at 07:32; Stop 04/02 at 07:33; Status DC Lidocaine HCl (Xylocaine-Mpf 1% 5ml Vial) 5 ml STK-MED ONCE .ROUTE ; Start at 07:32; Stop 04/02/18 at 07:33; Status DC Rocuronium Galien (Zemuron) 100 mg STK-MED ONCE .ROUTE ; Start 04/02/18 at 07:32 ; Stop 04/02/18 at 07:33; Status DC Fentanyl Citrate (Fentanyl 5ml Vial) 250 mcg STK-MED ONCE .ROUTE ; Start at 07:33; Stop 04/02/18 at 07:34; Status DC Dexamethasone Sodium Phosphate (Decadron) 20 mg STK-MED ONCE .ROUTE ; Start 04/02 at 08:42; Stop 04/02/18 at 08:43; Status DC Ephedrine Sulfate (ePHEDrine PF IN SALINE SYRINGE) 50 mg STK-MED ONCE IV ; Start 04/02/18 at 08:42; Stop 04/02/18 at 08:43; Status DC Sodium Chloride 38.4 ml/Fentanyl Citrate 250 mcg/ Ropivacaine 10 ml/ Epidural Dosage Infused (Pha) 53.4 ml @ 0 mls/hr CONT PRN EP SEE PROTOCOL TABLE Last administered on 04/07/18at 06:52; Start 04/02/18 at 09:00 Naloxone HCl (Narcan) 0.1 mg PRN 1X PRN IV RESP DEPRESSION, MRX1; Start at 09:00 Bupivacaine HCl (Sensorcaine Mpf 0.25%) 30 ml STK-MED ONCE .ROUTE ; Start at 08:53; Stop 04/02/18 at 08:54; Status DC Famotidine (Pepcid Vial) 20 mg STK-MED ONCE .ROUTE ; Start 04/02/18 at 08:58; Stop 04/02/18 at 08:59; Status DC Hydrocortisone Sodium Succinate (Solu-CORTEF) 100 mg STK-MED ONCE .ROUTE ; Start 04/02/18 at 08:58; Stop 04/02/18 at 08:59; Status DC Diphenhydramine HCl (Benadryl) 50 mg STK-MED ONCE .ROUTE ; Start 04/02/18 at 08: 58; Stop 04/02/18 at 08:59; Status DC Metronidazole 200 ml @ 200 mls/hr 1X ONCE IV Last administered on 04/02/18at 09 :11; Start 04/02/18 at 09:15; Stop 04/02/18 at 10:14; Status DC Desflurane (Suprane) 90 ml STK-MED ONCE IH ; Start 04/02/18 at 09:21; Stop at 09:22; Status DC Glycopyrrolate (Robinul) 1 mg STK-MED ONCE .ROUTE ; Start 04/02/18 at 10:29; Stop 04/02/18 at 10:30; Status DC Neostigmine Methylsulfate (Neostigmine Methylsulfate) 5 mg STK-MED ONCE .ROUTE ; Start 04/02/18 at 10:29; Stop 04/02/18 at 10:30; Status DC Ondansetron HCl (Zofran) 4 mg STK-MED ONCE .ROUTE ; Start 04/02/18 at 10:30; Stop 04/02/18 at 10:31; Status DC Phenylephrine HCl (PHENYLEPHRINE in 0.9% NACL PF) 1 mg STK-MED ONCE IV ; Start 04/02/18 at 11:54; Stop 04/02/18 at 11:55; Status DC Cellulose (Surgicel Hemostat 4x8) 1 each STK-MED ONCE .ROUTE Last administered on 04/02/18at 12:00; Start 04/02/18 at 10:58; Stop 04/02/18 at 11:58; Status DC Sodium Chloride (Normal Saline Flush) 3 ml QSHIFT PRN IV AFTER MEDS AND BLOOD DRAWS; Start 04/02/18 at 13:45 Ringer's Solution 1,000 ml @ 125 mls/hr Q8H IV Last administered on 04/06/18at 06:07; Start 04/02/18 at 14:00; Stop 04/06/18 at 14:43; Status DC Ondansetron HCl (Zofran) 4 mg PRN Q6HRS PRN IV NAUESA, 1ST CHOICE Last administered on 04/07/18at 10:56; Start 04/02/18 at 13:45 Heparin Sodium (Porcine) (Heparin Sq) 5,000 unit Q12HR SQ Last administered on 04/07/18at 09:14; Start 04/03/18 at 09:00 Throat Lozenges (Chloraseptic) 1 spray PRN Q2HR PRN PO SORE THROAT; Start at 05:45 Dextrose (Dextrose 50%-Water Syringe) 12.5 gm PRN Q15MIN PRN IV SEE COMMENTS; Start 04/03/18 at 08:00 Ringer's Solution 500 ml @ 500 mls/hr 1X ONCE IV Last administered on at 11:30; Start 04/03/18 at 11:30; Stop 04/03/18 at 12:29; Status DC Insulin Human Lispro (HumaLOG) 0-5 UNITS TIDWMEALS SQ ; Start 04/03/18 at 17:00 Dextrose (Dextrose 50%-Water Syringe) 12.5 gm PRN Q15MIN PRN IV SEE COMMENTS; Start 04/03/18 at 13:30; Status UNV Famotidine (Pepcid Vial) 20 mg QHS IVP Last administered on 04/06/18at 21:28; Start 04/03/18 at 21:00 Oxycodone/ Acetaminophen (Percocet 5/325) 1 tab PRN Q4HRS PRN PO MODERATE PAIN ; Start 04/05/18 at 08:45 Amino Acids/ Glycerin/ Electrolytes 1,000 ml @ 80 mls/hr [id number] IV Last administered on 04/07/18at 05:25; Start 04/06/18 at 15:30 Fluticasone Propionate (Flonase) 2 spray DAILY NS ; Start 04/07/18 at 12:00 Cetirizine HCl (ZyrTEC) 10 mg PRN DAILY PRN PO ALLERGIES; Start 04/07/18 at 11: 30 Active Scripts Active Reported Multivitamins (Multivitamin) 1 Each Tablet 1 Tab PO DAILY Zyrtec (Cetirizine Hcl) 10 Mg Tablet 1 Tab PO DAILY Hydrochlorothiazide Tablet (Hydrochlorothiazide) 25 Mg Tablet 25 Mg PO DAILY Ranitidine Hcl 150 Mg Capsule 150 Mg PO DAILY Allopurinol 100 Mg Tablet 100 Mg PO DAILY Vitals/I & O Vital Sign - Last 24 Hours 04/06/18 04/06/18 04/06/18 04/06/18 12:26 15:00 19:00 19:04 Temp 98.4 98.6 98.4 98.6 Pulse 70 78 Resp 18 18 16 B/P (MAP) 155/81 (105) 144/73 (96) Pulse Ox 93 92 98 O2 Delivery Nasal Cannula Room Air Nasal Cannula Room Air O2 Flow Rate 2.0 2.0 04/06/18 04/06/18 04/07/18 04/07/18 20:05 23:00 00:40 01:10 Temp 99.5 99.5 Pulse 74 Resp 18 18 B/P (MAP) 147/76 (99) Pulse Ox 96 96 O2 Delivery Nasal Cannula Nasal Cannula Nasal Cannula O2 Flow Rate 2.0 2.0 2.0 04/07/18 04/07/18 04/07/18 04/07/18 03:00 06:52 07:00 07:30 Temp 99.5 98.2 99.5 98.2 Pulse 66 73 Resp 18 16 16 B/P (MAP) 143/78 (99) 145/86 (105) Pulse Ox 96 94 96 O2 Delivery Nasal Cannula Room Air Nasal Cannula Nasal Cannula O2 Flow Rate 2.0 2.0 2.0 Intake and Output 04/06/18 04/06/18 04/07/18 15:00 23:00 07:00 Intake Total 1825 ml 2240 ml Output Total 2400 ml Balance 1825 ml -160 ml ELISA WESLEY MD Apr 07, 2018 11:51
[2018-04-07] MEDS ORDERED: ACETAMINOPHEN 650 MG/20.3 ML SOLUTION. PEG PRN (12:00)
[2018-04-07] MEDS ORDERED: HYDROmorphone 2 MG/ML VIAL IVP PRN (12:00)
[2018-04-07] MEDS: FLUTICASONE 50MCG/NASAL SPRAY 16GM BOTTLE. NS SCH (13:21)
--- NOTE | 2018-04-07 13:56 | PDOC ---
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 - pain OK Vitals Vitals Vital Signs Date Time Temp Pulse Resp B/P (MAP) Pulse Ox O2 Delivery O2 Flow Rate FiO2 04/07/18 11:00 98.6 72 16 163/87 (112) 94 Nasal Cannula 2.0 98.6 Physical Exam General: Alert, Oriented X3 Heart: Regular rate, Normal S1, Normal S2 Lungs: Clear Abdomen: Soft Extremities: No clubbing, No cyanosis, No edema Skin: No rashes, No breakdown Labs LABS Laboratory Tests Test 04/06/18 16:37 04/06/18 20:34 04/07/18 04:15 04/07/18 07:32 Glucose (Fingerstick) 97 mg/dL (70-99) 109 mg/dL (70-99) 123 mg/dL (70-99) Sodium Level 139 mmol/L (136-145) Potassium Level 3.5 mmol/L (3.5-5.1) Chloride Level 101 mmol/L (98-107) Carbon Dioxide Level 29 mmol/L (21-32) Anion Gap 9 (6-14) Blood Urea Nitrogen 14 mg/dL (8-26) Creatinine 1.1 mg/dL (0.7-1.3) Estimated GFR (Cockcroft-Gault) 73.4 BUN/Creatinine Ratio 13 (6-20) Glucose Level 92 mg/dL (70-99) Calcium Level 9.1 mg/dL (8.5-10.1) Total Bilirubin 0.9 mg/dL (0.2-1.0) Aspartate Amino Transf (AST/SGOT) 52 U/L (15-37) Alanine Aminotransferase (ALT/SGPT) 86 U/L (16-63) Alkaline Phosphatase 115 U/L (46-116) Total Protein 6.8 g/dL (6.4-8.2) Albumin 2.7 g/dL (3.4-5.0) Albumin/Globulin Ratio 0.7 (1.0-1.7) Test 04/07/18 10:58 Glucose (Fingerstick) 111 mg/dL (70-99) Review of Systems Review of Systems no n/v/d/ Comment Review of Relevant I have reviewed the following items gladys (where applicable) has been applied. Labs Laboratory Tests Test 04/05/18 15:20 04/05/18 21:36 04/06/18 04:23 04/06/18 04:25 Glucose (Fingerstick) 115 mg/dL (70-99) 107 mg/dL (70-99) White Blood Count 25.7 x10^3/uL (4.0-11.0) Red Blood Count 3.52 x10^6/uL (4.30-5.70) Hemoglobin 11.1 g/dL (13.0-17.5) Hematocrit 33.1 % (39.0-53.0) Mean Corpuscular Volume 94 fL (79-100) Mean Corpuscular Hemoglobin 32 pg (25-35) Mean Corpuscular Hemoglobin Concent 34 g/dL (31-37) Red Cell Distribution Width 13.7 % (11.5-14.5) Platelet Count 393 x10^3/uL (140-400) Neutrophils (%) (Auto) 75 % (31-73) Lymphocytes (%) (Auto) 9 % (24-48) Monocytes (%) (Auto) 16 % (0-9) Eosinophils (%) (Auto) 0 % (0-3) Basophils (%) (Auto) 0 % (0-3) Neutrophils # (Auto) 19.3 x10^3uL (1.8-7.7) Lymphocytes # (Auto) 2.2 x10^3/uL (1.0-4.8) Monocytes # (Auto) 4.0 x10^3/uL (0.0-1.1) Eosinophils # (Auto) 0.1 x10^3/uL (0.0-0.7) Basophils # (Auto) 0.1 x10^3/uL (0.0-0.2) Sodium Level 141 mmol/L (136-145) Potassium Level 3.6 mmol/L (3.5-5.1) Chloride Level 103 mmol/L (98-107) Carbon Dioxide Level 30 mmol/L (21-32) Anion Gap 8 (6-14) Blood Urea Nitrogen 16 mg/dL (8-26) Creatinine 1.1 mg/dL (0.7-1.3) Estimated GFR (Cockcroft-Gault) 73.4 BUN/Creatinine Ratio 15 (6-20) Glucose Level 99 mg/dL (70-99) Calcium Level 8.6 mg/dL (8.5-10.1) Total Bilirubin 0.8 mg/dL (0.2-1.0) Aspartate Amino Transf (AST/SGOT) 62 U/L (15-37) Alanine Aminotransferase (ALT/SGPT) 77 U/L (16-63) Alkaline Phosphatase 93 U/L (46-116) Total Protein 6.3 g/dL (6.4-8.2) Albumin 2.6 g/dL (3.4-5.0) Albumin/Globulin Ratio 0.7 (1.0-1.7) Test 04/06/18 06:12 04/06/18 09:33 04/06/18 16:37 04/06/18 20:34 Glucose (Fingerstick) 108 mg/dL (70-99) 121 mg/dL (70-99) 97 mg/dL (70-99) 109 mg/dL (70-99) Test 04/07/18 04:15 04/07/18 07:32 04/07/18 10:58 Sodium Level 139 mmol/L (136-145) Potassium Level 3.5 mmol/L (3.5-5.1) Chloride Level 101 mmol/L (98-107) Carbon Dioxide Level 29 mmol/L (21-32) Anion Gap 9 (6-14) Blood Urea Nitrogen 14 mg/dL (8-26) Creatinine 1.1 mg/dL (0.7-1.3) Estimated GFR (Cockcroft-Gault) 73.4 BUN/Creatinine Ratio 13 (6-20) Glucose Level 92 mg/dL (70-99) Calcium Level 9.1 mg/dL (8.5-10.1) Total Bilirubin 0.9 mg/dL (0.2-1.0) Aspartate Amino Transf (AST/SGOT) 52 U/L (15-37) Alanine Aminotransferase (ALT/SGPT) 86 U/L (16-63) Alkaline Phosphatase 115 U/L (46-116) Total Protein 6.8 g/dL (6.4-8.2) Albumin 2.7 g/dL (3.4-5.0) Albumin/Globulin Ratio 0.7 (1.0-1.7) Glucose (Fingerstick) 123 mg/dL (70-99) 111 mg/dL (70-99) Laboratory Tests Test 04/06/18 16:37 04/06/18 20:34 04/07/18 04:15 04/07/18 07:32 Glucose (Fingerstick) 97 mg/dL (70-99) 109 mg/dL (70-99) 123 mg/dL (70-99) Sodium Level 139 mmol/L (136-145) Potassium Level 3.5 mmol/L (3.5-5.1) Chloride Level 101 mmol/L (98-107) Carbon Dioxide Level 29 mmol/L (21-32) Anion Gap 9 (6-14) Blood Urea Nitrogen 14 mg/dL (8-26) Creatinine 1.1 mg/dL (0.7-1.3) Estimated GFR (Cockcroft-Gault) 73.4 BUN/Creatinine Ratio 13 (6-20) Glucose Level 92 mg/dL (70-99) Calcium Level 9.1 mg/dL (8.5-10.1) Total Bilirubin 0.9 mg/dL (0.2-1.0) Aspartate Amino Transf (AST/SGOT) 52 U/L (15-37) Alanine Aminotransferase (ALT/SGPT) 86 U/L (16-63) Alkaline Phosphatase 115 U/L (46-116) Total Protein 6.8 g/dL (6.4-8.2) Albumin 2.7 g/dL (3.4-5.0) Albumin/Globulin Ratio 0.7 (1.0-1.7) Test 04/07/18 10:58 Glucose (Fingerstick) 111 mg/dL (70-99) Medications Current Medications Heparin Sodium (Porcine) 1000 unit/Sodium Chloride 1,001 ml @ 1,001 mls/hr 1X ONCE IRR ; Start 04/02/18 at 06:00; Stop 04/02/18 at 06:59; Status DC Cefazolin Sodium/ Dextrose 50 ml @ 100 mls/hr 1X PREOP PRN IV PRIOR TO PROCEDURE Last administered on 04/02/18at 08:43; Start 04/02/18 at 06:00; Stop 04/02 at 18:00; Status DC Ondansetron HCl (Zofran) 4 mg PRN Q6HRS PRN IV NAUSEA/VOMITING Last administered on 04/02/18at 17:33; Start 04/02/18 at 07:00; Stop 04/03/18 at 06:59; Status DC Fentanyl Citrate (Fentanyl 2ml Vial) 25 mcg PRN Q5MIN PRN IV MILD PAIN; Start 04/02/18 at 07:00; Stop 04/03/18 at 06:59; Status DC Fentanyl Citrate (Fentanyl 2ml Vial) 50 mcg PRN Q5MIN PRN IV MODERATE TO SEVERE PAIN; Start 04/02/18 at 07:00; Stop 04/03/18 at 06:59; Status DC Morphine Sulfate (Morphine Sulfate) 1 mg PRN Q10MIN PRN IV SEVERE PAIN; Start 04/02/18 at 07:00; Stop 04/03/18 at 06:59; Status DC Ringer's Solution 1,000 ml @ 30 mls/hr Q24H IV Last administered on 04/02/18at 07:00; Start 04/02/18 at 07:00; Stop 04/02/18 at 18:59; Status DC Lidocaine HCl (Xylocaine-Mpf 1% 2ml Vial) 2 ml PRN 1X PRN ID IV START; Start at 07:00; Stop 04/03/18 at 06:59; Status DC Hydromorphone HCl (Dilaudid) 0.5 mg PRN Q10MIN PRN IV SEV PAIN, Second choice; Start 04/02/18 at 07:00; Stop 04/03/18 at 06:59; Status DC Prochlorperazine Edisylate (Compazine) 5 mg PACU PRN PRN IV NAUSEA, MRX1; Start 04/02/18 at 07:00; Stop 04/03/18 at 06:59; Status DC Bupivacaine HCl/ Epinephrine Bitart (Marcaine-Epi 0.5%-[id number]) 50 ml STK-MED ONCE .ROUTE Last administered on 04/02/18at 09:00; Start 04/02/18 at 05:50; Stop 04/02/18 at 06:50; Status DC Cellulose (Surgicel Hemostat 2x3) 1 each STK-MED ONCE .ROUTE ; Start 04/02/18 at 05:50; Stop 04/02/18 at 06:50; Status DC Iohexol (Omnipaque 300 Mg/ml) 100 ml STK-MED ONCE .ROUTE ; Start 04/02/18 at 05: 50; Stop 04/02/18 at 06:50; Status DC Bisacodyl (Dulcolax Supp) 10 mg STK-MED ONCE .ROUTE ; Start 04/02/18 at 05:50; Stop 04/02/18 at 06:51; Status DC Bupivacaine HCl/ Epinephrine Bitart (Marcaine-Epi 0.5%-1:[id number]) 50 ml STK-MED ONCE .ROUTE ; Start 04/02/18 at 06:10; Stop 04/02/18 at 07:11; Status DC Cellulose (Surgicel Hemostat 2x3) 1 each STK-MED ONCE .ROUTE ; Start 04/02/18 at 06:10; Stop 04/02/18 at 07:11; Status DC Bisacodyl (Dulcolax Supp) 10 mg STK-MED ONCE .ROUTE ; Start 04/02/18 at 06:10; Stop 04/02/18 at 07:11; Status DC Iohexol (Omnipaque 300 Mg/ml) 100 ml STK-MED ONCE .ROUTE ; Start 04/02/18 at 06: 11; Stop 04/02/18 at 07:12; Status DC Lidocaine HCl (Xylocaine-Mpf 2% Vial) 2 ml STK-MED ONCE .ROUTE ; Start 04/02/18 at 07:30; Stop 04/02/18 at 07:31; Status DC Propofol 20 ml @ As Directed STK-MED ONCE IV ; Start 04/02/18 at 07:32; Stop 04/02 at 07:33; Status DC Lidocaine HCl (Xylocaine-Mpf 1% 5ml Vial) 5 ml STK-MED ONCE .ROUTE ; Start at 07:32; Stop 04/02/18 at 07:33; Status DC Rocuronium [place] (Zemuron) 100 mg STK-MED ONCE .ROUTE ; Start 04/02/18 at 07:32 ; Stop 04/02/18 at 07:33; Status DC Fentanyl Citrate (Fentanyl 5ml Vial) 250 mcg STK-MED ONCE .ROUTE ; Start at 07:33; Stop 04/02/18 at 07:34; Status DC Dexamethasone Sodium Phosphate (Decadron) 20 mg STK-MED ONCE .ROUTE ; Start 04/02 at 08:42; Stop 04/02/18 at 08:43; Status DC Ephedrine Sulfate (ePHEDrine PF IN SALINE SYRINGE) 50 mg STK-MED ONCE IV ; Start 04/02/18 at 08:42; Stop 04/02/18 at 08:43; Status DC Sodium Chloride 38.4 ml/Fentanyl Citrate 250 mcg/ Ropivacaine 10 ml/ Epidural Dosage Infused (Pha) 53.4 ml @ 0 mls/hr CONT PRN EP SEE PROTOCOL TABLE Last administered on 04/07/18at 06:52; Start 04/02/18 at 09:00 Naloxone HCl (Narcan) 0.1 mg PRN 1X PRN IV RESP DEPRESSION, MRX1; Start at 09:00 Bupivacaine HCl (Sensorcaine Mpf 0.25%) 30 ml STK-MED ONCE .ROUTE ; Start at 08:53; Stop 04/02/18 at 08:54; Status DC Famotidine (Pepcid Vial) 20 mg STK-MED ONCE .ROUTE ; Start 04/02/18 at 08:58; Stop 04/02/18 at 08:59; Status DC Hydrocortisone Sodium Succinate (Solu-CORTEF) 100 mg STK-MED ONCE .ROUTE ; Start 04/02/18 at 08:58; Stop 04/02/18 at 08:59; Status DC Diphenhydramine HCl (Benadryl) 50 mg STK-MED ONCE .ROUTE ; Start 04/02/18 at 08: 58; Stop 04/02/18 at 08:59; Status DC Metronidazole 200 ml @ 200 mls/hr 1X ONCE IV Last administered on 04/02/18at 09 :11; Start 04/02/18 at 09:15; Stop 04/02/18 at 10:14; Status DC Desflurane (Suprane) 90 ml STK-MED ONCE IH ; Start 04/02/18 at 09:21; Stop at 09:22; Status DC Glycopyrrolate (Robinul) 1 mg STK-MED ONCE .ROUTE ; Start 04/02/18 at 10:29; Stop 04/02/18 at 10:30; Status DC Neostigmine Methylsulfate (Neostigmine Methylsulfate) 5 mg STK-MED ONCE .ROUTE ; Start 04/02/18 at 10:29; Stop 04/02/18 at 10:30; Status DC Ondansetron HCl (Zofran) 4 mg STK-MED ONCE .ROUTE ; Start 04/02/18 at 10:30; Stop 04/02/18 at 10:31; Status DC Phenylephrine HCl (PHENYLEPHRINE in 0.9% NACL PF) 1 mg STK-MED ONCE IV ; Start 04/02/18 at 11:54; Stop 04/02/18 at 11:55; Status DC Cellulose (Surgicel Hemostat 4x8) 1 each STK-MED ONCE .ROUTE Last administered on 04/02/18at 12:00; Start 04/02/18 at 10:58; Stop 04/02/18 at 11:58; Status DC Sodium Chloride (Normal Saline Flush) 3 ml QSHIFT PRN IV AFTER MEDS AND BLOOD DRAWS; Start 04/02/18 at 13:45 Ringer's Solution 1,000 ml @ 125 mls/hr Q8H IV Last administered on 04/06/18at 06:07; Start 04/02/18 at 14:00; Stop 04/06/18 at 14:43; Status DC Ondansetron HCl (Zofran) 4 mg PRN Q6HRS PRN IV NAUESA, 1ST CHOICE Last administered on 04/07/18at 10:56; Start 04/02/18 at 13:45 Heparin Sodium (Porcine) (Heparin Sq) 5,000 unit Q12HR SQ Last administered on 04/07/18at 09:14; Start 04/03/18 at 09:00; Stop 04/07/18 at 13:02; Status DC Throat Lozenges (Chloraseptic) 1 spray PRN Q2HR PRN PO SORE THROAT; Start at 05:45 Dextrose (Dextrose 50%-Water Syringe) 12.5 gm PRN Q15MIN PRN IV SEE COMMENTS; Start 04/03/18 at 08:00 Ringer's Solution 500 ml @ 500 mls/hr 1X ONCE IV Last administered on at 11:30; Start 04/03/18 at 11:30; Stop 04/03/18 at 12:29; Status DC Insulin Human Lispro (HumaLOG) 0-5 UNITS TIDWMEALS SQ ; Start 04/03/18 at 17:00 Dextrose (Dextrose 50%-Water Syringe) 12.5 gm PRN Q15MIN PRN IV SEE COMMENTS; Start 04/03/18 at 13:30; Status UNV Famotidine (Pepcid Vial) 20 mg QHS IVP Last administered on 04/06/18at 21:28; Start 04/03/18 at 21:00 Oxycodone/ Acetaminophen (Percocet 5/325) 1 tab PRN Q4HRS PRN PO MODERATE PAIN ; Start 04/05/18 at 08:45 Amino Acids/ Glycerin/ Electrolytes 1,000 ml @ 80 mls/hr [id number] IV Last administered on 04/07/18at 05:25; Start 04/06/18 at 15:30 Fluticasone Propionate (Flonase) 2 spray DAILY NS Last administered on at 13:21; Start 04/07/18 at 12:00 Cetirizine HCl (ZyrTEC) 10 mg PRN DAILY PRN PO ALLERGIES Last administered on at 13:21; Start 04/07/18 at 11:30 Oxycodone/ Acetaminophen (Percocet 5/325) 2 tab PRN Q4HRS PRN PO SEVERE PAIN; Start 04/07/18 at 12:00 Acetaminophen (Tylenol) 650 mg PRN Q6HRS PRN PEG MILD PAIN / TEMP; Start at 12:00 Hydromorphone HCl (Dilaudid) 0.4 mg PRN Q4HRS PRN IVP MODERATE-SEVERE PAIN; Start 04/07/18 at 12:00 Enoxaparin Sodium (Lovenox 40mg Syringe) 40 mg Q12HR SQ ; Start 04/08/18 at 09: 00 Potassium Chloride (Klor-Con) 20 meq 1X ONCE PO Last administered on 04/07/18at 13:27; Start 04/07/18 at 14:00; Stop 04/07/18 at 14:01 Active Scripts Active Reported Multivitamins (Multivitamin) 1 Each Tablet 1 Tab PO DAILY Zyrtec (Cetirizine Hcl) 10 Mg Tablet 1 Tab PO DAILY Hydrochlorothiazide Tablet (Hydrochlorothiazide) 25 Mg Tablet 25 Mg PO DAILY Ranitidine Hcl 150 Mg Capsule 150 Mg PO DAILY Allopurinol 100 Mg Tablet 100 Mg PO DAILY Vitals/I & O Vital Sign - Last 24 Hours 04/06/18 04/06/18 04/06/18 04/06/18 15:00 19:00 19:04 20:05 Temp 98.4 98.6 98.4 98.6 Pulse 70 78 Resp 18 18 16 B/P (MAP) 155/81 (105) 144/73 (96) Pulse Ox 92 98 O2 Delivery Room Air Nasal Cannula Room Air Nasal Cannula O2 Flow Rate 2.0 2.0 04/06/18 04/07/18 04/07/18 04/07/18 23:00 00:40 01:10 03:00 Temp 99.5 99.5 99.5 99.5 Pulse 74 66 Resp 18 B/P (MAP) 147/76 (99) 143/78 (99) Pulse Ox 96 96 96 O2 Delivery Nasal Cannula Nasal Cannula Nasal Cannula O2 Flow Rate 2.0 2.0 2.0 04/07/18 04/07/18 04/07/18 04/07/18 06:52 07:00 07:30 11:00 Temp 98.2 98.6 98.2 98.6 Pulse 73 72 Resp 16 16 16 B/P (MAP) 145/86 (105) 163/87 (112) Pulse Ox 94 96 94 O2 Delivery Room Air Nasal Cannula Nasal Cannula Nasal Cannula O2 Flow Rate 2.0 2.0 2.0 Intake and Output 04/06/18 04/06/18 04/07/18 15:00 23:00 07:00 Intake Total 1825 ml 2240 ml Output Total 2400 ml Balance 1825 ml -160 ml BOLIVAR HAYES MD Apr 07, 2018 13:56
[2018-04-07] MEDS ORDERED: POTASSIUM CHLORIDE 20 MEQ TABLET.ER. PO ONE (14:00)
[2018-04-07 15:00] VITALS: BP 144/82
[2018-04-07] MEDS: oxyCODONE/APAP 5/325 1 TAB TABLET PO PRN ×2 (15:07→19:15)
[2018-04-07] MEDS: POTASSIUM CL 20MEQ D5-0.45NACL 1,000 ML IV SCH (17:37)
[2018-04-07 19:00] VITALS: BP 140/72
[2018-04-07] MEDS: FAMOTIDINE 20 MG/2 ML VIAL IVP SCH (22:08)
[2018-04-07 23:00] VITALS: BP 149/81
[2018-04-08 03:00] VITALS: BP 171/89
[2018-04-08] MEDS: oxyCODONE/APAP 5/325 1 TAB TABLET PO PRN ×5 (03:49→21:12)
[2018-04-08 07:00] VITALS: BP 152/78
[2018-04-08] MEDS: POTASSIUM CL 20MEQ D5-0.45NACL 1,000 ML IV SCH (07:10)
[2018-04-08] MEDS: INSULIN LISPRO 300 UNITS/3 ML INSULN.PEN. SQ SCH ×3 (07:47→17:00)
[2018-04-08] MEDS: FLUTICASONE 50MCG/NASAL SPRAY 16GM BOTTLE. NS SCH (08:43)
[2018-04-08] MEDS: CETIRIZINE HCL 10 MG TABLET. PO SCH (08:44)
[2018-04-08] MEDS: ENOXAPARIN 40 MG/0.4 ML SYRINGE. SQ SCH ×2 (08:45→21:11)
[2018-04-08] MEDS ORDERED: SERTRALINE 50 MG TABLET. PO SCH (09:00)
--- NOTE | 2018-04-08 09:53 | PDOC ---
ROLDAN RUDD CLINICAL PSYCHOLOGY PROFESSOR 04/08/18 0953: SURGICAL PROGRESS NOTE Subjective up in chair pain managed tolerating full liquids having stools Vital Signs Vital Signs Date Time Temp Pulse Resp B/P (MAP) Pulse Ox O2 Delivery O2 Flow Rate FiO2 04/08/18 07:55 16 Room Air 04/08/18 07:00 98.4 61 152/78 (102) 99 98.4 04/08/18 03:00 2.0 I&O Intake and Output 04/08/18 07:00 Output Total 1050 ml Balance -1050 ml Output Urine Total 900 ml Stool Total 150 ml # Voids 2 General: Alert, Oriented X3, Cooperative, No acute distress Abdomen: Soft, Other (vac in place, andrés in place, ND) Labs Laboratory Tests Test 04/06/18 16:37 04/06/18 20:34 04/07/18 04:15 04/07/18 07:32 Glucose (Fingerstick) 97 mg/dL (70-99) 109 mg/dL (70-99) 123 mg/dL (70-99) Sodium Level 139 mmol/L (136-145) Potassium Level 3.5 mmol/L (3.5-5.1) Chloride Level 101 mmol/L (98-107) Carbon Dioxide Level 29 mmol/L (21-32) Anion Gap 9 (6-14) Blood Urea Nitrogen 14 mg/dL (8-26) Creatinine 1.1 mg/dL (0.7-1.3) Estimated GFR (Cockcroft-Gault) 73.4 BUN/Creatinine Ratio 13 (6-20) Glucose Level 92 mg/dL (70-99) Calcium Level 9.1 mg/dL (8.5-10.1) Total Bilirubin 0.9 mg/dL (0.2-1.0) Aspartate Amino Transf (AST/SGOT) 52 U/L (15-37) Alanine Aminotransferase (ALT/SGPT) 86 U/L (16-63) Alkaline Phosphatase 115 U/L (46-116) Total Protein 6.8 g/dL (6.4-8.2) Albumin 2.7 g/dL (3.4-5.0) Albumin/Globulin Ratio 0.7 (1.0-1.7) Test 04/07/18 10:58 04/07/18 16:01 04/07/18 20:35 04/08/18 07:34 Glucose (Fingerstick) 111 mg/dL (70-99) 115 mg/dL (70-99) 138 mg/dL (70-99) 114 mg/dL (70-99) Laboratory Tests Test 04/07/18 10:58 04/07/18 16:01 04/07/18 20:35 04/08/18 07:34 Glucose (Fingerstick) 111 mg/dL (70-99) 115 mg/dL (70-99) 138 mg/dL (70-99) 114 mg/dL (70-99) Assessment/Plan supportive care continue drain dc soon RENETTA LAMBERT MD 04/08/18 1007: SURGICAL PROGRESS NOTE Assessment/Plan Pt doing well, precious PO abd soft, ND, NTTP, drain minimal output will check drain output for amylase ADAT, D/c IVF plan d/c home on 04/10 d/w pt and pt's family path results ROLDAN RUDD APRN Apr 08, 2018 09:53 RENETTA LAMBERT MD Apr 08, 2018 10:07
[2018-04-08 11:00] VITALS: BP 154/82
--- NOTE | 2018-04-08 11:28 | PDOC ---
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 History of Present Illness History of Present Illness UP in chair, eating better, will advance diet, may drive blood sugar up Vital signs stable will start [employer] - pain OK Vitals Vitals Vital Signs Date Time Temp Pulse Resp B/P (MAP) Pulse Ox O2 Delivery O2 Flow Rate FiO2 04/08/18 09:00 16 Room Air 04/08/18 07:00 98.4 61 152/78 (102) 99 98.4 04/08/18 03:00 2.0 Physical Exam General: Alert, Oriented X3, Cooperative, No acute distress Heart: Regular rate, Normal S1, Normal S2 Lungs: Clear Abdomen: Soft, Other (vac in place, andrés in place, ND) Extremities: No clubbing, No cyanosis, No edema Skin: No rashes, No breakdown Labs LABS Laboratory Tests Test 04/07/18 16:01 04/07/18 20:35 04/08/18 07:34 Glucose (Fingerstick) 115 mg/dL (70-99) 138 mg/dL (70-99) 114 mg/dL (70-99) Comment Review of Relevant I have reviewed the following items gladys (where applicable) has been applied. Labs Laboratory Tests Test 04/06/18 16:37 04/06/18 20:34 04/07/18 04:15 04/07/18 07:32 Glucose (Fingerstick) 97 mg/dL (70-99) 109 mg/dL (70-99) 123 mg/dL (70-99) Sodium Level 139 mmol/L (136-145) Potassium Level 3.5 mmol/L (3.5-5.1) Chloride Level 101 mmol/L (98-107) Carbon Dioxide Level 29 mmol/L (21-32) Anion Gap 9 (6-14) Blood Urea Nitrogen 14 mg/dL (8-26) Creatinine 1.1 mg/dL (0.7-1.3) Estimated GFR (Cockcroft-Gault) 73.4 BUN/Creatinine Ratio 13 (6-20) Glucose Level 92 mg/dL (70-99) Calcium Level 9.1 mg/dL (8.5-10.1) Total Bilirubin 0.9 mg/dL (0.2-1.0) Aspartate Amino Transf (AST/SGOT) 52 U/L (15-37) Alanine Aminotransferase (ALT/SGPT) 86 U/L (16-63) Alkaline Phosphatase 115 U/L (46-116) Total Protein 6.8 g/dL (6.4-8.2) Albumin 2.7 g/dL (3.4-5.0) Albumin/Globulin Ratio 0.7 (1.0-1.7) Test 04/07/18 10:58 04/07/18 16:01 04/07/18 20:35 04/08/18 07:34 Glucose (Fingerstick) 111 mg/dL (70-99) 115 mg/dL (70-99) 138 mg/dL (70-99) 114 mg/dL (70-99) Laboratory Tests Test 04/07/18 16:01 04/07/18 20:35 04/08/18 07:34 Glucose (Fingerstick) 115 mg/dL (70-99) 138 mg/dL (70-99) 114 mg/dL (70-99) Medications Current Medications Heparin Sodium (Porcine) 1000 unit/Sodium Chloride 1,001 ml @ 1,001 mls/hr 1X ONCE IRR ; Start 04/02/18 at 06:00; Stop 04/02/18 at 06:59; Status DC Cefazolin Sodium/ Dextrose 50 ml @ 100 mls/hr 1X PREOP PRN IV PRIOR TO PROCEDURE Last administered on 04/02/18at 08:43; Start 04/02/18 at 06:00; Stop 04/02 at 18:00; Status DC Ondansetron HCl (Zofran) 4 mg PRN Q6HRS PRN IV NAUSEA/VOMITING Last administered on 04/02/18at 17:33; Start 04/02/18 at 07:00; Stop 04/03/18 at 06:59; Status DC Fentanyl Citrate (Fentanyl 2ml Vial) 25 mcg PRN Q5MIN PRN IV MILD PAIN; Start 04/02/18 at 07:00; Stop 04/03/18 at 06:59; Status DC Fentanyl Citrate (Fentanyl 2ml Vial) 50 mcg PRN Q5MIN PRN IV MODERATE TO SEVERE PAIN; Start 04/02/18 at 07:00; Stop 04/03/18 at 06:59; Status DC Morphine Sulfate (Morphine Sulfate) 1 mg PRN Q10MIN PRN IV SEVERE PAIN; Start 04/02/18 at 07:00; Stop 04/03/18 at 06:59; Status DC Ringer's Solution 1,000 ml @ 30 mls/hr Q24H IV Last administered on 04/02/18at 07:00; Start 04/02/18 at 07:00; Stop 04/02/18 at 18:59; Status DC Lidocaine HCl (Xylocaine-Mpf 1% 2ml Vial) 2 ml PRN 1X PRN ID IV START; Start at 07:00; Stop 04/03/18 at 06:59; Status DC Hydromorphone HCl (Dilaudid) 0.5 mg PRN Q10MIN PRN IV SEV PAIN, Second choice; Start 04/02/18 at 07:00; Stop 04/03/18 at 06:59; Status DC Prochlorperazine Edisylate (Compazine) 5 mg PACU PRN PRN IV NAUSEA, MRX1; Start 04/02/18 at 07:00; Stop 04/03/18 at 06:59; Status DC Bupivacaine HCl/ Epinephrine Bitart (Marcaine-Epi 0.5%-[id number]) 50 ml STK-MED ONCE .ROUTE Last administered on 04/02/18at 09:00; Start 04/02/18 at 05:50; Stop 04/02/18 at 06:50; Status DC Cellulose (Surgicel Hemostat 2x3) 1 each STK-MED ONCE .ROUTE ; Start 04/02/18 at 05:50; Stop 04/02/18 at 06:50; Status DC Iohexol (Omnipaque 300 Mg/ml) 100 ml STK-MED ONCE .ROUTE ; Start 04/02/18 at 05: 50; Stop 04/02/18 at 06:50; Status DC Bisacodyl (Dulcolax Supp) 10 mg STK-MED ONCE .ROUTE ; Start 04/02/18 at 05:50; Stop 04/02/18 at 06:51; Status DC Bupivacaine HCl/ Epinephrine Bitart (Marcaine-Epi 0.5%-[id number]) 50 ml STK-MED ONCE .ROUTE ; Start 04/02/18 at 06:10; Stop 04/02/18 at 07:11; Status DC Cellulose (Surgicel Hemostat 2x3) 1 each STK-MED ONCE .ROUTE ; Start 04/02/18 at 06:10; Stop 04/02/18 at 07:11; Status DC Bisacodyl (Dulcolax Supp) 10 mg STK-MED ONCE .ROUTE ; Start 04/02/18 at 06:10; Stop 04/02/18 at 07:11; Status DC Iohexol (Omnipaque 300 Mg/ml) 100 ml STK-MED ONCE .ROUTE ; Start 04/02/18 at 06: 11; Stop 04/02/18 at 07:12; Status DC Lidocaine HCl (Xylocaine-Mpf 2% Vial) 2 ml STK-MED ONCE .ROUTE ; Start 04/02/18 at 07:30; Stop 04/02/18 at 07:31; Status DC Propofol 20 ml @ As Directed STK-MED ONCE IV ; Start 04/02/18 at 07:32; Stop 04/02 at 07:33; Status DC Lidocaine HCl (Xylocaine-Mpf 1% 5ml Vial) 5 ml STK-MED ONCE .ROUTE ; Start at 07:32; Stop 04/02/18 at 07:33; Status DC Rocuronium Rowley (Zemuron) 100 mg STK-MED ONCE .ROUTE ; Start 04/02/18 at 07:32 ; Stop 04/02/18 at 07:33; Status DC Fentanyl Citrate (Fentanyl 5ml Vial) 250 mcg STK-MED ONCE .ROUTE ; Start at 07:33; Stop 04/02/18 at 07:34; Status DC Dexamethasone Sodium Phosphate (Decadron) 20 mg STK-MED ONCE .ROUTE ; Start 04/02 at 08:42; Stop 04/02/18 at 08:43; Status DC Ephedrine Sulfate (ePHEDrine PF IN SALINE SYRINGE) 50 mg STK-MED ONCE IV ; Start 04/02/18 at 08:42; Stop 04/02/18 at 08:43; Status DC Sodium Chloride 38.4 ml/Fentanyl Citrate 250 mcg/ Ropivacaine 10 ml/ Epidural Dosage Infused (Pha) 53.4 ml @ 0 mls/hr CONT PRN EP SEE PROTOCOL TABLE Last administered on 04/07/18at 06:52; Start 04/02/18 at 09:00; Stop 04/07/18 at 16:33; Status DC Naloxone HCl (Narcan) 0.1 mg PRN 1X PRN IV RESP DEPRESSION, MRX1; Start at 09:00 Bupivacaine HCl (Sensorcaine Mpf 0.25%) 30 ml STK-MED ONCE .ROUTE ; Start at 08:53; Stop 04/02/18 at 08:54; Status DC Famotidine (Pepcid Vial) 20 mg STK-MED ONCE .ROUTE ; Start 04/02/18 at 08:58; Stop 04/02/18 at 08:59; Status DC Hydrocortisone Sodium Succinate (Solu-CORTEF) 100 mg STK-MED ONCE .ROUTE ; Start 04/02/18 at 08:58; Stop 04/02/18 at 08:59; Status DC Diphenhydramine HCl (Benadryl) 50 mg STK-MED ONCE .ROUTE ; Start 04/02/18 at 08: 58; Stop 04/02/18 at 08:59; Status DC Metronidazole 200 ml @ 200 mls/hr 1X ONCE IV Last administered on 04/02/18at 09 :11; Start 04/02/18 at 09:15; Stop 04/02/18 at 10:14; Status DC Desflurane (Suprane) 90 ml STK-MED ONCE IH ; Start 04/02/18 at 09:21; Stop at 09:22; Status DC Glycopyrrolate (Robinul) 1 mg STK-MED ONCE .ROUTE ; Start 04/02/18 at 10:29; Stop 04/02/18 at 10:30; Status DC Neostigmine Methylsulfate (Neostigmine Methylsulfate) 5 mg STK-MED ONCE .ROUTE ; Start 04/02/18 at 10:29; Stop 04/02/18 at 10:30; Status DC Ondansetron HCl (Zofran) 4 mg STK-MED ONCE .ROUTE ; Start 04/02/18 at 10:30; Stop 04/02/18 at 10:31; Status DC Phenylephrine HCl (PHENYLEPHRINE in 0.9% NACL PF) 1 mg STK-MED ONCE IV ; Start 04/02/18 at 11:54; Stop 04/02/18 at 11:55; Status DC Cellulose (Surgicel Hemostat 4x8) 1 each STK-MED ONCE .ROUTE Last administered on 04/02/18at 12:00; Start 04/02/18 at 10:58; Stop 04/02/18 at 11:58; Status DC Sodium Chloride (Normal Saline Flush) 3 ml QSHIFT PRN IV AFTER MEDS AND BLOOD DRAWS; Start 04/02/18 at 13:45 Ringer's Solution 1,000 ml @ 125 mls/hr Q8H IV Last administered on 04/06/18at 06:07; Start 04/02/18 at 14:00; Stop 04/06/18 at 14:43; Status DC Ondansetron HCl (Zofran) 4 mg PRN Q6HRS PRN IV NAUESA, 1ST CHOICE Last administered on 04/07/18at 10:56; Start 04/02/18 at 13:45 Heparin Sodium (Porcine) (Heparin Sq) 5,000 unit Q12HR SQ Last administered on 04/07/18at 09:14; Start 04/03/18 at 09:00; Stop 04/07/18 at 13:02; Status DC Throat Lozenges (Chloraseptic) 1 spray PRN Q2HR PRN PO SORE THROAT; Start at 05:45 Dextrose (Dextrose 50%-Water Syringe) 12.5 gm PRN Q15MIN PRN IV SEE COMMENTS; Start 04/03/18 at 08:00 Ringer's Solution 500 ml @ 500 mls/hr 1X ONCE IV Last administered on at 11:30; Start 04/03/18 at 11:30; Stop 04/03/18 at 12:29; Status DC Insulin Human Lispro (HumaLOG) 0-5 UNITS TIDWMEALS SQ ; Start 04/03/18 at 17:00 Dextrose (Dextrose 50%-Water Syringe) 12.5 gm PRN Q15MIN PRN IV SEE COMMENTS; Start 04/03/18 at 13:30; Status UNV Famotidine (Pepcid Vial) 20 mg QHS IVP Last administered on 04/07/18at 22:08; Start 04/03/18 at 21:00 Oxycodone/ Acetaminophen (Percocet 5/325) 1 tab PRN Q4HRS PRN PO MODERATE PAIN Last administered on 04/08/18at 07:55; Start 04/05/18 at 08:45 Amino Acids/ Glycerin/ Electrolytes 1,000 ml @ 80 mls/hr [id number] IV Last administered on 04/07/18at 05:25; Start 04/06/18 at 15:30; Stop 04/07/18 at 15:38; Status DC Fluticasone Propionate (Flonase) 2 spray DAILY NS Last administered on at 08:43; Start 04/07/18 at 12:00 Cetirizine HCl (ZyrTEC) 10 mg PRN DAILY PRN PO ALLERGIES Last administered on at 13:21; Start 04/07/18 at 11:30; Stop 04/07/18 at 19:11; Status DC Oxycodone/ Acetaminophen (Percocet 5/325) 2 tab PRN Q4HRS PRN PO SEVERE PAIN Last administered on 04/08/18at 03:49; Start 04/07/18 at 12:00 Acetaminophen (Tylenol) 650 mg PRN Q6HRS PRN PEG MILD PAIN / TEMP; Start at 12:00 Hydromorphone HCl (Dilaudid) 0.4 mg PRN Q4HRS PRN IVP MODERATE-SEVERE PAIN; Start 04/07/18 at 12:00; Stop 04/08/18 at 10:10; Status DC Enoxaparin Sodium (Lovenox 40mg Syringe) 40 mg Q12HR SQ Last administered on 05/16at 08:45; Start 04/08/18 at 09:00 Potassium Chloride (Klor-Con) 20 meq 1X ONCE PO Last administered on 04/07/18at 13:27; Start 04/07/18 at 14:00; Stop 04/07/18 at 14:01; Status DC Potassium Chloride/Dextrose/ Sod Cl 1,000 ml @ 80 mls/hr [id number] IV Last administered on 04/08/18at 07:10; Start 04/07/18 at 16:00; Stop 04/08/18 at 10:10 ; Status DC Cetirizine HCl (ZyrTEC) 10 mg DAILY PO Last administered on 04/08/18at 08:44; Start 04/08/18 at 09:00 Sertraline HCl (Zoloft) 50 mg DAILY PO ; Start 04/08/18 at 09:00; Stop 04/08/18 at 10:39; Status DC Active Scripts Active Reported Multivitamins (Multivitamin) 1 Each Tablet 1 Tab PO DAILY Zyrtec (Cetirizine Hcl) 10 Mg Tablet 1 Tab PO DAILY Hydrochlorothiazide Tablet (Hydrochlorothiazide) 25 Mg Tablet 25 Mg PO DAILY Ranitidine Hcl 150 Mg Capsule 150 Mg PO DAILY Allopurinol 100 Mg Tablet 100 Mg PO DAILY Vitals/I & O Vital Sign - Last 24 Hours 04/07/18 04/07/18 04/07/18 04/07/18 15:00 15:07 16:15 19:00 Temp 99.4 99.4 99.4 99.4 Pulse 67 74 Resp 18 18 B/P (MAP) 144/82 (102) 140/72 (94) Pulse Ox 90 94 94 92 O2 Delivery BiPAP/CPAP Room Air Nasal Cannula O2 Flow Rate 2.0 04/07/18 04/07/18 04/07/18 04/08/18 19:15 19:55 23:00 03:00 Temp 99.1 98.8 99.1 98.8 Pulse 63 70 Resp 16 18 18 B/P (MAP) 149/81 (103) 171/89 (116) Pulse Ox 94 94 O2 Delivery Room Air Room Air Nasal Cannula Nasal Cannula O2 Flow Rate 2.0 2.0 04/08/18 04/08/18 04/08/18 04/08/18 03:49 04:49 07:00 07:55 Temp 98.4 98.4 Pulse 61 Resp 16 16 16 16 B/P (MAP) 152/78 (102) Pulse Ox 99 O2 Delivery Room Air Room Air Room Air Room Air 04/08/18 04/08/18 08:15 09:00 Resp 16 O2 Delivery Room Air Room Air Intake and Output 04/07/18 04/07/18 04/08/18 15:00 23:00 07:00 Output Total 900 ml 150 ml Balance -900 ml -150 ml BOLIVAR HAYES MD Apr 08, 2018 11:28
--- NOTE | 2018-04-08 12:25 | PDOC ---
Subjective: Subjective: Doing well - tolerating diet, loose stools. 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 SHADE FRIAS Apr 08, 2018 12:25
[2018-04-08 15:00] VITALS: BP 172/95
[2018-04-08 19:00] VITALS: BP 138/80
[2018-04-08] MEDS: FAMOTIDINE 20 MG TABLET. PO SCH (21:10)
[2018-04-08 23:00] VITALS: BP 156/82
[2018-04-09] MEDS: oxyCODONE/APAP 5/325 1 TAB TABLET PO PRN ×6 (02:44→23:54)
[2018-04-09 03:00] VITALS: BP 148/82
[2018-04-09 07:00] VITALS: BP 159/88
[2018-04-09] MEDS: INSULIN LISPRO 300 UNITS/3 ML INSULN.PEN. SQ SCH ×3 (08:00→17:00)
[2018-04-09 08:46] LABS: ALBUMIN 2.7 g/dL (3.4-5.0); ALBUMIN/GLOBULIN RATIO 0.7 (1.0-1.7); CALCIUM 8.5 mg/dL (8.5-10.1); CREATININE 1.1 mg/dL (0.7-1.3); GFR 73.4; POTASSIUM 3.3 mmol/L (3.5-5.1); TOTAL BILIRUBIN 0.6 mg/dL (0.2-1.0); TOTAL PROTEIN 6.8 g/dL (6.4-8.2)
[2018-04-09] MEDS: ENOXAPARIN 40 MG/0.4 ML SYRINGE. SQ SCH ×2 (08:54→21:21)
[2018-04-09] MEDS: CETIRIZINE HCL 10 MG TABLET. PO SCH (08:54)
[2018-04-09] MEDS: FLUTICASONE 50MCG/NASAL SPRAY 16GM BOTTLE. NS SCH (08:57)
--- NOTE | 2018-04-09 09:08 | PDOC ---
SURGICAL PROGRESS NOTE Subjective Pt with c/o incisional pain, but controlled with PO pain meds, precious PO, having loose stools, FSBS 80-150 Vital Signs Vital Signs Date Time Temp Pulse Resp B/P (MAP) Pulse Ox O2 Delivery O2 Flow Rate FiO2 04/09/18 07:00 95.7 69 18 159/88 (111) 95 Room Air 95.7 I&O Intake and Output 04/09/18 07:00 Intake Total 1240 ml Output Total 3000 ml Balance -1760 ml Intake Oral 0 ml IV Total 1240 ml Output Urine Total 2950 ml Drainage Total 50 ml # Bowel Movements 1 PATIENT HAS A ENRIQUE: No General: Alert, Oriented X3, Cooperative, No acute distress Abdomen: Soft, No tenderness, Other (wound vac in place, drain in place with minimal output) Labs Laboratory Tests Test 04/07/18 10:58 04/07/18 16:01 04/07/18 20:35 04/08/18 07:34 Glucose (Fingerstick) 111 mg/dL (70-99) 115 mg/dL (70-99) 138 mg/dL (70-99) 114 mg/dL (70-99) Test 04/08/18 11:27 04/08/18 16:22 04/08/18 21:06 04/09/18 07:28 Glucose (Fingerstick) 94 mg/dL (70-99) 83 mg/dL (70-99) 125 mg/dL (70-99) 146 mg/dL (70-99) Test 04/09/18 07:42 Sodium Level 134 mmol/L (136-145) Potassium Level 3.3 mmol/L (3.5-5.1) Chloride Level 100 mmol/L (98-107) Carbon Dioxide Level 28 mmol/L (21-32) Anion Gap 6 (6-14) Blood Urea Nitrogen 8 mg/dL (8-26) Creatinine 1.1 mg/dL (0.7-1.3) Estimated GFR (Cockcroft-Gault) 73.4 BUN/Creatinine Ratio 7 (6-20) Glucose Level 135 mg/dL (70-99) Calcium Level 8.5 mg/dL (8.5-10.1) Total Bilirubin 0.6 mg/dL (0.2-1.0) Aspartate Amino Transf (AST/SGOT) 37 U/L (15-37) Alanine Aminotransferase (ALT/SGPT) 83 U/L (16-63) Alkaline Phosphatase 127 U/L (46-116) Total Protein 6.8 g/dL (6.4-8.2) Albumin 2.7 g/dL (3.4-5.0) Albumin/Globulin Ratio 0.7 (1.0-1.7) Laboratory Tests Test 04/08/18 11:27 04/08/18 16:22 04/08/18 21:06 04/09/18 07:28 Glucose (Fingerstick) 94 mg/dL (70-99) 83 mg/dL (70-99) 125 mg/dL (70-99) 146 mg/dL (70-99) Test 04/09/18 07:42 Sodium Level 134 mmol/L (136-145) Potassium Level 3.3 mmol/L (3.5-5.1) Chloride Level 100 mmol/L (98-107) Carbon Dioxide Level 28 mmol/L (21-32) Anion Gap 6 (6-14) Blood Urea Nitrogen 8 mg/dL (8-26) Creatinine 1.1 mg/dL (0.7-1.3) Estimated GFR (Cockcroft-Gault) 73.4 BUN/Creatinine Ratio 7 (6-20) Glucose Level 135 mg/dL (70-99) Calcium Level 8.5 mg/dL (8.5-10.1) Total Bilirubin 0.6 mg/dL (0.2-1.0) Aspartate Amino Transf (AST/SGOT) 37 U/L (15-37) Alanine Aminotransferase (ALT/SGPT) 83 U/L (16-63) Alkaline Phosphatase 127 U/L (46-116) Total Protein 6.8 g/dL (6.4-8.2) Albumin 2.7 g/dL (3.4-5.0) Albumin/Globulin Ratio 0.7 (1.0-1.7) Problem List s/p distal pancreatectomy d/c planning-FSBS at home 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
[2018-04-09 09:16] LABS: BASO # 0.1 x10^3/uL (0.0-0.2); BASO % 1 % (0-3); EOS # 0.4 x10^3/uL (0.0-0.7); EOS % 2 % (0-3); HEMATOCRIT 34.4 % (39.0-53.0); HEMOGLOBIN 11.5 g/dL (13.0-17.5); LYMPH # 2.1 x10^3/uL (1.0-4.8); LYMPH % 10 % (24-48); MEAN CORPUSCULAR HEMOGLOBIN 31 pg (25-35); MEAN CORPUSCULAR HGB CONC 33 g/dL (31-37); MEAN CORPUSCULAR VOLUME 93 fL (79-100); MONO # 2.7 x10^3/uL (0.0-1.1); MONO % 13 % (0-9); NEUT # 16.1 x10^3uL (1.8-7.7); NEUT % 75 % (31-73); PLATELET COUNT 637 x10^3/uL (140-400); RED BLOOD COUNT 3.69 x10^6/uL (4.30-5.70); RED CELL DISTRIBUTION WIDTH 13.9 % (11.5-14.5); WHITE BLOOD COUNT 21.5 x10^3/uL (4.0-11.0)
--- NOTE | 2018-04-09 09:34 | PDOC ---
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 - - Macrocystic serous cystadenoma of pancreas, forming a multicystic tumor mass adjacent to the proximal stapled margin and just beneath the anterior resection margin measuring 2.2 cm in greatest dimension. Serous cystadenoma, s/p resection. 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 History of Present Illness History of Present Illness UP in chair, advance diet, WILL GIVE K PO Vital signs stable [employer] - pain OK Vitals Vitals Vital Signs Date Time Temp Pulse Resp B/P (MAP) Pulse Ox O2 Delivery O2 Flow Rate FiO2 04/09/18 07:00 95.7 69 18 159/88 (111) 95 Room Air 95.7 Physical Exam General: Alert, Oriented X3, Cooperative, No acute distress Heart: Regular rate, Normal S1, Normal S2 Lungs: Clear Abdomen: Soft, No tenderness, Other (wound vac in place, drain in place with minimal output) Extremities: No clubbing, No cyanosis, No edema Skin: No rashes, No breakdown Labs LABS Laboratory Tests Test 04/08/18 11:27 04/08/18 16:22 04/08/18 21:06 04/09/18 07:28 Glucose (Fingerstick) 94 mg/dL (70-99) 83 mg/dL (70-99) 125 mg/dL (70-99) 146 mg/dL (70-99) Test 04/09/18 07:42 White Blood Count 21.5 x10^3/uL (4.0-11.0) Red Blood Count 3.69 x10^6/uL (4.30-5.70) Hemoglobin 11.5 g/dL (13.0-17.5) Hematocrit 34.4 % (39.0-53.0) Mean Corpuscular Volume 93 fL (79-100) Mean Corpuscular Hemoglobin 31 pg (25-35) Mean Corpuscular Hemoglobin Concent 33 g/dL (31-37) Red Cell Distribution Width 13.9 % (11.5-14.5) Platelet Count 637 x10^3/uL (140-400) Neutrophils (%) (Auto) 75 % (31-73) Lymphocytes (%) (Auto) 10 % (24-48) Monocytes (%) (Auto) 13 % (0-9) Eosinophils (%) (Auto) 2 % (0-3) Basophils (%) (Auto) 1 % (0-3) Neutrophils # (Auto) 16.1 x10^3uL (1.8-7.7) Lymphocytes # (Auto) 2.1 x10^3/uL (1.0-4.8) Monocytes # (Auto) 2.7 x10^3/uL (0.0-1.1) Eosinophils # (Auto) 0.4 x10^3/uL (0.0-0.7) Basophils # (Auto) 0.1 x10^3/uL (0.0-0.2) Sodium Level 134 mmol/L (136-145) Potassium Level 3.3 mmol/L (3.5-5.1) Chloride Level 100 mmol/L (98-107) Carbon Dioxide Level 28 mmol/L (21-32) Anion Gap 6 (6-14) Blood Urea Nitrogen 8 mg/dL (8-26) Creatinine 1.1 mg/dL (0.7-1.3) Estimated GFR (Cockcroft-Gault) 73.4 BUN/Creatinine Ratio 7 (6-20) Glucose Level 135 mg/dL (70-99) Calcium Level 8.5 mg/dL (8.5-10.1) Total Bilirubin 0.6 mg/dL (0.2-1.0) Aspartate Amino Transf (AST/SGOT) 37 U/L (15-37) Alanine Aminotransferase (ALT/SGPT) 83 U/L (16-63) Alkaline Phosphatase 127 U/L (46-116) Total Protein 6.8 g/dL (6.4-8.2) Albumin 2.7 g/dL (3.4-5.0) Albumin/Globulin Ratio 0.7 (1.0-1.7) Comment Review of Relevant I have reviewed the following items gladys (where applicable) has been applied. Labs Laboratory Tests Test 04/07/18 10:58 04/07/18 16:01 04/07/18 20:35 04/08/18 07:34 Glucose (Fingerstick) 111 mg/dL (70-99) 115 mg/dL (70-99) 138 mg/dL (70-99) 114 mg/dL (70-99) Test 04/08/18 11:27 04/08/18 16:22 04/08/18 21:06 04/09/18 07:28 Glucose (Fingerstick) 94 mg/dL (70-99) 83 mg/dL (70-99) 125 mg/dL (70-99) 146 mg/dL (70-99) Test 04/09/18 07:42 White Blood Count 21.5 x10^3/uL (4.0-11.0) Red Blood Count 3.69 x10^6/uL (4.30-5.70) Hemoglobin 11.5 g/dL (13.0-17.5) Hematocrit 34.4 % (39.0-53.0) Mean Corpuscular Volume 93 fL (79-100) Mean Corpuscular Hemoglobin 31 pg (25-35) Mean Corpuscular Hemoglobin Concent 33 g/dL (31-37) Red Cell Distribution Width 13.9 % (11.5-14.5) Platelet Count 637 x10^3/uL (140-400) Neutrophils (%) (Auto) 75 % (31-73) Lymphocytes (%) (Auto) 10 % (24-48) Monocytes (%) (Auto) 13 % (0-9) Eosinophils (%) (Auto) 2 % (0-3) Basophils (%) (Auto) 1 % (0-3) Neutrophils # (Auto) 16.1 x10^3uL (1.8-7.7) Lymphocytes # (Auto) 2.1 x10^3/uL (1.0-4.8) Monocytes # (Auto) 2.7 x10^3/uL (0.0-1.1) Eosinophils # (Auto) 0.4 x10^3/uL (0.0-0.7) Basophils # (Auto) 0.1 x10^3/uL (0.0-0.2) Sodium Level 134 mmol/L (136-145) Potassium Level 3.3 mmol/L (3.5-5.1) Chloride Level 100 mmol/L (98-107) Carbon Dioxide Level 28 mmol/L (21-32) Anion Gap 6 (6-14) Blood Urea Nitrogen 8 mg/dL (8-26) Creatinine 1.1 mg/dL (0.7-1.3) Estimated GFR (Cockcroft-Gault) 73.4 BUN/Creatinine Ratio 7 (6-20) Glucose Level 135 mg/dL (70-99) Calcium Level 8.5 mg/dL (8.5-10.1) Total Bilirubin 0.6 mg/dL (0.2-1.0) Aspartate Amino Transf (AST/SGOT) 37 U/L (15-37) Alanine Aminotransferase (ALT/SGPT) 83 U/L (16-63) Alkaline Phosphatase 127 U/L (46-116) Total Protein 6.8 g/dL (6.4-8.2) Albumin 2.7 g/dL (3.4-5.0) Albumin/Globulin Ratio 0.7 (1.0-1.7) Laboratory Tests Test 04/08/18 11:27 04/08/18 16:22 04/08/18 21:06 04/09/18 07:28 Glucose (Fingerstick) 94 mg/dL (70-99) 83 mg/dL (70-99) 125 mg/dL (70-99) 146 mg/dL (70-99) Test 04/09/18 07:42 White Blood Count 21.5 x10^3/uL (4.0-11.0) Red Blood Count 3.69 x10^6/uL (4.30-5.70) Hemoglobin 11.5 g/dL (13.0-17.5) Hematocrit 34.4 % (39.0-53.0) Mean Corpuscular Volume 93 fL (79-100) Mean Corpuscular Hemoglobin 31 pg (25-35) Mean Corpuscular Hemoglobin Concent 33 g/dL (31-37) Red Cell Distribution Width 13.9 % (11.5-14.5) Platelet Count 637 x10^3/uL (140-400) Neutrophils (%) (Auto) 75 % (31-73) Lymphocytes (%) (Auto) 10 % (24-48) Monocytes (%) (Auto) 13 % (0-9) Eosinophils (%) (Auto) 2 % (0-3) Basophils (%) (Auto) 1 % (0-3) Neutrophils # (Auto) 16.1 x10^3uL (1.8-7.7) Lymphocytes # (Auto) 2.1 x10^3/uL (1.0-4.8) Monocytes # (Auto) 2.7 x10^3/uL (0.0-1.1) Eosinophils # (Auto) 0.4 x10^3/uL (0.0-0.7) Basophils # (Auto) 0.1 x10^3/uL (0.0-0.2) Sodium Level 134 mmol/L (136-145) Potassium Level 3.3 mmol/L (3.5-5.1) Chloride Level 100 mmol/L (98-107) Carbon Dioxide Level 28 mmol/L (21-32) Anion Gap 6 (6-14) Blood Urea Nitrogen 8 mg/dL (8-26) Creatinine 1.1 mg/dL (0.7-1.3) Estimated GFR (Cockcroft-Gault) 73.4 BUN/Creatinine Ratio 7 (6-20) Glucose Level 135 mg/dL (70-99) Calcium Level 8.5 mg/dL (8.5-10.1) Total Bilirubin 0.6 mg/dL (0.2-1.0) Aspartate Amino Transf (AST/SGOT) 37 U/L (15-37) Alanine Aminotransferase (ALT/SGPT) 83 U/L (16-63) Alkaline Phosphatase 127 U/L (46-116) Total Protein 6.8 g/dL (6.4-8.2) Albumin 2.7 g/dL (3.4-5.0) Albumin/Globulin Ratio 0.7 (1.0-1.7) Medications Current Medications Heparin Sodium (Porcine) 1000 unit/Sodium Chloride 1,001 ml @ 1,001 mls/hr 1X ONCE IRR ; Start 04/02/18 at 06:00; Stop 04/02/18 at 06:59; Status DC Cefazolin Sodium/ Dextrose 50 ml @ 100 mls/hr 1X PREOP PRN IV PRIOR TO PROCEDURE Last administered on 04/02/18at 08:43; Start 04/02/18 at 06:00; Stop 04/02 at 18:00; Status DC Ondansetron HCl (Zofran) 4 mg PRN Q6HRS PRN IV NAUSEA/VOMITING Last administered on 04/02/18at 17:33; Start 04/02/18 at 07:00; Stop 04/03/18 at 06:59; Status DC Fentanyl Citrate (Fentanyl 2ml Vial) 25 mcg PRN Q5MIN PRN IV MILD PAIN; Start 04/02/18 at 07:00; Stop 04/03/18 at 06:59; Status DC Fentanyl Citrate (Fentanyl 2ml Vial) 50 mcg PRN Q5MIN PRN IV MODERATE TO SEVERE PAIN; Start 04/02/18 at 07:00; Stop 04/03/18 at 06:59; Status DC Morphine Sulfate (Morphine Sulfate) 1 mg PRN Q10MIN PRN IV SEVERE PAIN; Start 04/02/18 at 07:00; Stop 04/03/18 at 06:59; Status DC Ringer's Solution 1,000 ml @ 30 mls/hr Q24H IV Last administered on 04/02/18at 07:00; Start 04/02/18 at 07:00; Stop 04/02/18 at 18:59; Status DC Lidocaine HCl (Xylocaine-Mpf 1% 2ml Vial) 2 ml PRN 1X PRN ID IV START; Start at 07:00; Stop 04/03/18 at 06:59; Status DC Hydromorphone HCl (Dilaudid) 0.5 mg PRN Q10MIN PRN IV SEV PAIN, Second choice; Start 04/02/18 at 07:00; Stop 04/03/18 at 06:59; Status DC Prochlorperazine Edisylate (Compazine) 5 mg PACU PRN PRN IV NAUSEA, MRX1; Start 04/02/18 at 07:00; Stop 04/03/18 at 06:59; Status DC Bupivacaine HCl/ Epinephrine Bitart (Marcaine-Epi 0.5%-1:[id number]) 50 ml STK-MED ONCE .ROUTE Last administered on 04/02/18at 09:00; Start 04/02/18 at 05:50; Stop 04/02/18 at 06:50; Status DC Cellulose (Surgicel Hemostat 2x3) 1 each STK-MED ONCE .ROUTE ; Start 04/02/18 at 05:50; Stop 04/02/18 at 06:50; Status DC Iohexol (Omnipaque 300 Mg/ml) 100 ml STK-MED ONCE .ROUTE ; Start 04/02/18 at 05: 50; Stop 04/02/18 at 06:50; Status DC Bisacodyl (Dulcolax Supp) 10 mg STK-MED ONCE .ROUTE ; Start 04/02/18 at 05:50; Stop 04/02/18 at 06:51; Status DC Bupivacaine HCl/ Epinephrine Bitart (Marcaine-Epi 0.5%-1:[id number]) 50 ml STK-MED ONCE .ROUTE ; Start 04/02/18 at 06:10; Stop 04/02/18 at 07:11; Status DC Cellulose (Surgicel Hemostat 2x3) 1 each STK-MED ONCE .ROUTE ; Start 04/02/18 at 06:10; Stop 04/02/18 at 07:11; Status DC Bisacodyl (Dulcolax Supp) 10 mg STK-MED ONCE .ROUTE ; Start 04/02/18 at 06:10; Stop 04/02/18 at 07:11; Status DC Iohexol (Omnipaque 300 Mg/ml) 100 ml STK-MED ONCE .ROUTE ; Start 04/02/18 at 06: 11; Stop 04/02/18 at 07:12; Status DC Lidocaine HCl (Xylocaine-Mpf 2% Vial) 2 ml STK-MED ONCE .ROUTE ; Start 04/02/18 at 07:30; Stop 04/02/18 at 07:31; Status DC Propofol 20 ml @ As Directed STK-MED ONCE IV ; Start 04/02/18 at 07:32; Stop 04/02 at 07:33; Status DC Lidocaine HCl (Xylocaine-Mpf 1% 5ml Vial) 5 ml STK-MED ONCE .ROUTE ; Start at 07:32; Stop 04/02/18 at 07:33; Status DC Rocuronium [place] (Zemuron) 100 mg STK-MED ONCE .ROUTE ; Start 04/02/18 at 07:32 ; Stop 04/02/18 at 07:33; Status DC Fentanyl Citrate (Fentanyl 5ml Vial) 250 mcg STK-MED ONCE .ROUTE ; Start at 07:33; Stop 04/02/18 at 07:34; Status DC Dexamethasone Sodium Phosphate (Decadron) 20 mg STK-MED ONCE .ROUTE ; Start 04/02 at 08:42; Stop 04/02/18 at 08:43; Status DC Ephedrine Sulfate (ePHEDrine PF IN SALINE SYRINGE) 50 mg STK-MED ONCE IV ; Start 04/02/18 at 08:42; Stop 04/02/18 at 08:43; Status DC Sodium Chloride 38.4 ml/Fentanyl Citrate 250 mcg/ Ropivacaine 10 ml/ Epidural Dosage Infused (Pha) 53.4 ml @ 0 mls/hr CONT PRN EP SEE PROTOCOL TABLE Last administered on 04/07/18at 06:52; Start 04/02/18 at 09:00; Stop 04/07/18 at 16:33; Status DC Naloxone HCl (Narcan) 0.1 mg PRN 1X PRN IV RESP DEPRESSION, MRX1; Start at 09:00 Bupivacaine HCl (Sensorcaine Mpf 0.25%) 30 ml STK-MED ONCE .ROUTE ; Start at 08:53; Stop 04/02/18 at 08:54; Status DC Famotidine (Pepcid Vial) 20 mg STK-MED ONCE .ROUTE ; Start 04/02/18 at 08:58; Stop 04/02/18 at 08:59; Status DC Hydrocortisone Sodium Succinate (Solu-CORTEF) 100 mg STK-MED ONCE .ROUTE ; Start 04/02/18 at 08:58; Stop 04/02/18 at 08:59; Status DC Diphenhydramine HCl (Benadryl) 50 mg STK-MED ONCE .ROUTE ; Start 04/02/18 at 08: 58; Stop 04/02/18 at 08:59; Status DC Metronidazole 200 ml @ 200 mls/hr 1X ONCE IV Last administered on 04/02/18at 09 :11; Start 04/02/18 at 09:15; Stop 04/02/18 at 10:14; Status DC Desflurane (Suprane) 90 ml STK-MED ONCE IH ; Start 04/02/18 at 09:21; Stop at 09:22; Status DC Glycopyrrolate (Robinul) 1 mg STK-MED ONCE .ROUTE ; Start 04/02/18 at 10:29; Stop 04/02/18 at 10:30; Status DC Neostigmine Methylsulfate (Neostigmine Methylsulfate) 5 mg STK-MED ONCE .ROUTE ; Start 04/02/18 at 10:29; Stop 04/02/18 at 10:30; Status DC Ondansetron HCl (Zofran) 4 mg STK-MED ONCE .ROUTE ; Start 04/02/18 at 10:30; Stop 04/02/18 at 10:31; Status DC Phenylephrine HCl (PHENYLEPHRINE in 0.9% NACL PF) 1 mg STK-MED ONCE IV ; Start 04/02/18 at 11:54; Stop 04/02/18 at 11:55; Status DC Cellulose (Surgicel Hemostat 4x8) 1 each STK-MED ONCE .ROUTE Last administered on 04/02/18at 12:00; Start 04/02/18 at 10:58; Stop 04/02/18 at 11:58; Status DC Sodium Chloride (Normal Saline Flush) 3 ml QSHIFT PRN IV AFTER MEDS AND BLOOD DRAWS; Start 04/02/18 at 13:45 Ringer's Solution 1,000 ml @ 125 mls/hr Q8H IV Last administered on 04/06/18at 06:07; Start 04/02/18 at 14:00; Stop 04/06/18 at 14:43; Status DC Ondansetron HCl (Zofran) 4 mg PRN Q6HRS PRN IV NAUESA, 1ST CHOICE Last administered on 04/07/18at 10:56; Start 04/02/18 at 13:45 Heparin Sodium (Porcine) (Heparin Sq) 5,000 unit Q12HR SQ Last administered on 04/07/18at 09:14; Start 04/03/18 at 09:00; Stop 04/07/18 at 13:02; Status DC Throat Lozenges (Chloraseptic) 1 spray PRN Q2HR PRN PO SORE THROAT; Start at 05:45 Dextrose (Dextrose 50%-Water Syringe) 12.5 gm PRN Q15MIN PRN IV SEE COMMENTS; Start 04/03/18 at 08:00 Ringer's Solution 500 ml @ 500 mls/hr 1X ONCE IV Last administered on at 11:30; Start 04/03/18 at 11:30; Stop 04/03/18 at 12:29; Status DC Insulin Human Lispro (HumaLOG) 0-5 UNITS TIDWMEALS SQ ; Start 04/03/18 at 17:00 Dextrose (Dextrose 50%-Water Syringe) 12.5 gm PRN Q15MIN PRN IV SEE COMMENTS; Start 04/03/18 at 13:30; Status UNV Famotidine (Pepcid Vial) 20 mg QHS IVP Last administered on 04/07/18at 22:08; Start 04/03/18 at 21:00; Stop 04/08/18 at 13:36; Status DC Oxycodone/ Acetaminophen (Percocet 5/325) 1 tab PRN Q4HRS PRN PO MODERATE PAIN Last administered on 04/09/18at 06:44; Start 04/05/18 at 08:45 Amino Acids/ Glycerin/ Electrolytes 1,000 ml @ 80 mls/hr [id number] IV Last administered on 04/07/18at 05:25; Start 04/06/18 at 15:30; Stop 04/07/18 at 15:38; Status DC Fluticasone Propionate (Flonase) 2 spray DAILY NS Last administered on at 08:57; Start 04/07/18 at 12:00 Cetirizine HCl (ZyrTEC) 10 mg PRN DAILY PRN PO ALLERGIES Last administered on at 13:21; Start 04/07/18 at 11:30; Stop 04/07/18 at 19:11; Status DC Oxycodone/ Acetaminophen (Percocet 5/325) 2 tab PRN Q4HRS PRN PO SEVERE PAIN Last administered on 04/08/18at 03:49; Start 04/07/18 at 12:00 Acetaminophen (Tylenol) 650 mg PRN Q6HRS PRN PEG MILD PAIN / TEMP; Start at 12:00 Hydromorphone HCl (Dilaudid) 0.4 mg PRN Q4HRS PRN IVP MODERATE-SEVERE PAIN; Start 04/07/18 at 12:00; Stop 04/08/18 at 10:10; Status DC Enoxaparin Sodium (Lovenox 40mg Syringe) 40 mg Q12HR SQ Last administered on 06/16at 08:54; Start 04/08/18 at 09:00 Potassium Chloride (Klor-Con) 20 meq 1X ONCE PO Last administered on 04/07/18at 13:27; Start 04/07/18 at 14:00; Stop 04/07/18 at 14:01; Status DC Potassium Chloride/Dextrose/ Sod Cl 1,000 ml @ 80 mls/hr [id number] IV Last administered on 04/08/18at 07:10; Start 04/07/18 at 16:00; Stop 04/08/18 at 10:10 ; Status DC Cetirizine HCl (ZyrTEC) 10 mg DAILY PO Last administered on 04/09/18at 08:54; Start 04/08/18 at 09:00 Sertraline HCl (Zoloft) 50 mg DAILY PO ; Start 04/08/18 at 09:00; Stop 04/08/18 at 10:39; Status DC Famotidine (Pepcid) 20 mg QHS PO Last administered on 04/08/18at 21:10; Start at 21:00 Active Scripts Active Reported Multivitamins (Multivitamin) 1 Each Tablet 1 Tab PO DAILY Zyrtec (Cetirizine Hcl) 10 Mg Tablet 1 Tab PO DAILY Hydrochlorothiazide Tablet (Hydrochlorothiazide) 25 Mg Tablet 25 Mg PO DAILY Ranitidine Hcl 150 Mg Capsule 150 Mg PO DAILY Allopurinol 100 Mg Tablet 100 Mg PO DAILY Vitals/I & O Vital Sign - Last 24 Hours 04/08/18 04/08/18 04/08/18 04/08/18 11:00 13:20 15:00 17:17 Temp 98.4 98.7 98.4 98.7 Pulse 64 68 Resp 16 16 18 16 B/P (MAP) 154/82 (106) 172/95 (120) Pulse Ox 97 94 O2 Delivery Room Air Room Air Room Air Room Air 04/08/18 04/08/18 04/08/18 04/08/18 18:26 19:00 20:00 21:12 Temp 99.7 99.7 Pulse 80 Resp 16 20 B/P (MAP) 138/80 (99) Pulse Ox 97 O2 Delivery Room Air Room Air Room Air 04/08/18 04/09/18 04/09/18 04/09/18 23:00 02:44 03:00 03:45 Temp 98.4 99.3 98.4 99.3 Pulse 78 71 Resp 20 18 B/P (MAP) 156/82 (106) 148/82 (104) Pulse Ox 96 96 O2 Delivery BiPAP/CPAP Room Air Room Air Room Air 04/09/18 04/09/18 06:44 07:00 Temp 95.7 95.7 Pulse 69 Resp 18 B/P (MAP) 159/88 (111) Pulse Ox 95 O2 Delivery Room Air Room Air Intake and Output 04/08/18 04/08/18 04/09/18 15:00 23:00 07:00 Intake Total 1240 ml 0 ml Output Total 2000 ml 1000 ml Balance 1240 ml -2000 ml -1000 ml ARIANNE MONTES MD Apr 09, 2018 09:34
[2018-04-09 11:00] VITALS: BP 157/80
--- NOTE | 2018-04-09 12:17 | PDOC ---
G I PROGRESS NOTE Subjective No complaints. Eating well. Objective Not much output from LUQ drain. Physical Exam Lungs clear. RRR Abdomen soft. Review of Relevant I have reviewed the following items gladys (where applicable) has been applied. Labs Laboratory Tests Test 04/07/18 16:01 04/07/18 20:35 04/08/18 07:34 04/08/18 10:26 Glucose (Fingerstick) 115 mg/dL (70-99) 138 mg/dL (70-99) 114 mg/dL (70-99) Body Fluid Amylase 515 U/L (.) Test 04/08/18 11:27 04/08/18 16:22 04/08/18 21:06 04/09/18 07:28 Glucose (Fingerstick) 94 mg/dL (70-99) 83 mg/dL (70-99) 125 mg/dL (70-99) 146 mg/dL (70-99) Test 04/09/18 07:42 04/09/18 11:31 White Blood Count 21.5 x10^3/uL (4.0-11.0) Red Blood Count 3.69 x10^6/uL (4.30-5.70) Hemoglobin 11.5 g/dL (13.0-17.5) Hematocrit 34.4 % (39.0-53.0) Mean Corpuscular Volume 93 fL (79-100) Mean Corpuscular Hemoglobin 31 pg (25-35) Mean Corpuscular Hemoglobin Concent 33 g/dL (31-37) Red Cell Distribution Width 13.9 % (11.5-14.5) Platelet Count 637 x10^3/uL (140-400) Neutrophils (%) (Auto) 75 % (31-73) Lymphocytes (%) (Auto) 10 % (24-48) Monocytes (%) (Auto) 13 % (0-9) Eosinophils (%) (Auto) 2 % (0-3) Basophils (%) (Auto) 1 % (0-3) Neutrophils # (Auto) 16.1 x10^3uL (1.8-7.7) Lymphocytes # (Auto) 2.1 x10^3/uL (1.0-4.8) Monocytes # (Auto) 2.7 x10^3/uL (0.0-1.1) Eosinophils # (Auto) 0.4 x10^3/uL (0.0-0.7) Basophils # (Auto) 0.1 x10^3/uL (0.0-0.2) Sodium Level 134 mmol/L (136-145) Potassium Level 3.3 mmol/L (3.5-5.1) Chloride Level 100 mmol/L (98-107) Carbon Dioxide Level 28 mmol/L (21-32) Anion Gap 6 (6-14) Blood Urea Nitrogen 8 mg/dL (8-26) Creatinine 1.1 mg/dL (0.7-1.3) Estimated GFR (Cockcroft-Gault) 73.4 BUN/Creatinine Ratio 7 (6-20) Glucose Level 135 mg/dL (70-99) Calcium Level 8.5 mg/dL (8.5-10.1) Total Bilirubin 0.6 mg/dL (0.2-1.0) Aspartate Amino Transf (AST/SGOT) 37 U/L (15-37) Alanine Aminotransferase (ALT/SGPT) 83 U/L (16-63) Alkaline Phosphatase 127 U/L (46-116) Total Protein 6.8 g/dL (6.4-8.2) Albumin 2.7 g/dL (3.4-5.0) Albumin/Globulin Ratio 0.7 (1.0-1.7) Glucose (Fingerstick) 103 mg/dL (70-99) Laboratory Tests Test 04/08/18 16:22 04/08/18 21:06 04/09/18 07:28 04/09/18 07:42 Glucose (Fingerstick) 83 mg/dL (70-99) 125 mg/dL (70-99) 146 mg/dL (70-99) White Blood Count 21.5 x10^3/uL (4.0-11.0) Red Blood Count 3.69 x10^6/uL (4.30-5.70) Hemoglobin 11.5 g/dL (13.0-17.5) Hematocrit 34.4 % (39.0-53.0) Mean Corpuscular Volume 93 fL (79-100) Mean Corpuscular Hemoglobin 31 pg (25-35) Mean Corpuscular Hemoglobin Concent 33 g/dL (31-37) Red Cell Distribution Width 13.9 % (11.5-14.5) Platelet Count 637 x10^3/uL (140-400) Neutrophils (%) (Auto) 75 % (31-73) Lymphocytes (%) (Auto) 10 % (24-48) Monocytes (%) (Auto) 13 % (0-9) Eosinophils (%) (Auto) 2 % (0-3) Basophils (%) (Auto) 1 % (0-3) Neutrophils # (Auto) 16.1 x10^3uL (1.8-7.7) Lymphocytes # (Auto) 2.1 x10^3/uL (1.0-4.8) Monocytes # (Auto) 2.7 x10^3/uL (0.0-1.1) Eosinophils # (Auto) 0.4 x10^3/uL (0.0-0.7) Basophils # (Auto) 0.1 x10^3/uL (0.0-0.2) Sodium Level 134 mmol/L (136-145) Potassium Level 3.3 mmol/L (3.5-5.1) Chloride Level 100 mmol/L (98-107) Carbon Dioxide Level 28 mmol/L (21-32) Anion Gap 6 (6-14) Blood Urea Nitrogen 8 mg/dL (8-26) Creatinine 1.1 mg/dL (0.7-1.3) Estimated GFR (Cockcroft-Gault) 73.4 BUN/Creatinine Ratio 7 (6-20) Glucose Level 135 mg/dL (70-99) Calcium Level 8.5 mg/dL (8.5-10.1) Total Bilirubin 0.6 mg/dL (0.2-1.0) Aspartate Amino Transf (AST/SGOT) 37 U/L (15-37) Alanine Aminotransferase (ALT/SGPT) 83 U/L (16-63) Alkaline Phosphatase 127 U/L (46-116) Total Protein 6.8 g/dL (6.4-8.2) Albumin 2.7 g/dL (3.4-5.0) Albumin/Globulin Ratio 0.7 (1.0-1.7) Test 04/09/18 11:31 Glucose (Fingerstick) 103 mg/dL (70-99) Fluid amylase 500+. Vitals/I & O Vital Sign - Last 24 Hours 04/08/18 04/08/18 04/08/18 04/08/18 13:20 15:00 17:17 19:00 Temp 98.7 99.7 98.7 99.7 Pulse 68 80 Resp 16 18 16 20 B/P (MAP) 172/95 (120) 138/80 (99) Pulse Ox 94 97 O2 Delivery Room Air Room Air Room Air Room Air 04/08/18 04/08/18 04/08/18 04/09/18 20:00 21:12 23:00 02:44 Temp 98.4 98.4 Pulse 78 Resp 20 B/P (MAP) 156/82 (106) Pulse Ox 96 O2 Delivery Room Air Room Air BiPAP/CPAP Room Air 04/09/18 04/09/18 04/09/18 04/09/18 03:00 06:44 07:00 07:45 Temp 99.3 95.7 99.3 95.7 Pulse 71 69 Resp 18 18 16 B/P (MAP) 148/82 (104) 159/88 (111) Pulse Ox 96 95 O2 Delivery Room Air Room Air Room Air Room Air 04/09/18 04/09/18 04/09/18 08:00 11:25 11:42 O2 Delivery Room Air Room Air Room Air O2 Flow Rate 2.0 Intake and Output 04/08/18 04/08/18 04/09/18 15:00 23:00 07:00 Intake Total 1240 ml 0 ml Output Total 2000 ml 1000 ml Balance 1240 ml -2000 ml -1000 ml Assessment Amylase in drain fluid; not much volume however. Serous cystadenoma, s/p resection. Plan of Care: Continue current Tx, Mgmt Plan of Care Note "Prophylactic" octreotide? TROY SMITH MD Apr 09, 2018 12:16
[2018-04-09] MEDS ORDERED: POTASSIUM CHLORIDE 20 MEQ TABLET.ER. PO ONE (13:45)
[2018-04-09 15:00] VITALS: BP 159/84
[2018-04-09 19:25] VITALS: BP 156/86
[2018-04-09] MEDS: FAMOTIDINE 20 MG TABLET. PO SCH (21:20)
[2018-04-09 23:23] VITALS: BP 148/87
[2018-04-10 03:35] VITALS: BP 146/85
[2018-04-10] MEDS: oxyCODONE/APAP 5/325 1 TAB TABLET PO PRN ×4 (03:54→16:10)
[2018-04-10 05:45] LABS: BASO # 0.1 x10^3/uL (0.0-0.2); BASO % 0 % (0-3); EOS # 0.4 x10^3/uL (0.0-0.7); EOS % 2 % (0-3); HEMATOCRIT 32.8 % (39.0-53.0); HEMOGLOBIN 11.1 g/dL (13.0-17.5); LYMPH % 10 % (24-48); MEAN CORPUSCULAR HEMOGLOBIN 31 pg (25-35); MEAN CORPUSCULAR HGB CONC 34 g/dL (31-37); MEAN CORPUSCULAR VOLUME 93 fL (79-100); MONO % 15 % (0-9); NEUT % 73 % (31-73); PLATELET COUNT 704 x10^3/uL (140-400); RED BLOOD COUNT 3.54 x10^6/uL (4.30-5.70); RED CELL DISTRIBUTION WIDTH 13.7 % (11.5-14.5); WHITE BLOOD COUNT 20.5 x10^3/uL (4.0-11.0)
[2018-04-10 06:02] LABS: ALBUMIN 2.6 g/dL (3.4-5.0); ALBUMIN/GLOBULIN RATIO 0.7 (1.0-1.7); CALCIUM 8.9 mg/dL (8.5-10.1); CREATININE 1.1 mg/dL (0.7-1.3); GFR 73.4; POTASSIUM 3.5 mmol/L (3.5-5.1); TOTAL BILIRUBIN 0.5 mg/dL (0.2-1.0); TOTAL PROTEIN 6.5 g/dL (6.4-8.2)
[2018-04-10 07:00] VITALS: BP 165/93
[2018-04-10] MEDS: INSULIN LISPRO 300 UNITS/3 ML INSULN.PEN. SQ SCH ×2 (08:00→12:00)
[2018-04-10] MEDS: FLUTICASONE 50MCG/NASAL SPRAY 16GM BOTTLE. NS SCH (09:23)
[2018-04-10] MEDS: ENOXAPARIN 40 MG/0.4 ML SYRINGE. SQ SCH (09:24)
[2018-04-10] MEDS: CETIRIZINE HCL 10 MG TABLET. PO SCH (09:24)
--- NOTE | 2018-04-10 10:59 | PDOC ---
G I PROGRESS NOTE Subjective No complaints. Hoping to go home. Objective Not much volume out drain; still amylase in fluid. Physical Exam Lungs clear. RRR Abdomen soft, not distended. Review of Relevant I have reviewed the following items gladys (where applicable) has been applied. Labs Laboratory Tests Test 04/08/18 11:27 04/08/18 16:22 04/08/18 21:06 04/09/18 07:28 Glucose (Fingerstick) 94 mg/dL (70-99) 83 mg/dL (70-99) 125 mg/dL (70-99) 146 mg/dL (70-99) Test 04/09/18 07:42 04/09/18 11:31 04/09/18 16:48 04/09/18 21:07 White Blood Count 21.5 x10^3/uL (4.0-11.0) Red Blood Count 3.69 x10^6/uL (4.30-5.70) Hemoglobin 11.5 g/dL (13.0-17.5) Hematocrit 34.4 % (39.0-53.0) Mean Corpuscular Volume 93 fL (79-100) Mean Corpuscular Hemoglobin 31 pg (25-35) Mean Corpuscular Hemoglobin Concent 33 g/dL (31-37) Red Cell Distribution Width 13.9 % (11.5-14.5) Platelet Count 637 x10^3/uL (140-400) Neutrophils (%) (Auto) 75 % (31-73) Lymphocytes (%) (Auto) 10 % (24-48) Monocytes (%) (Auto) 13 % (0-9) Eosinophils (%) (Auto) 2 % (0-3) Basophils (%) (Auto) 1 % (0-3) Neutrophils # (Auto) 16.1 x10^3uL (1.8-7.7) Lymphocytes # (Auto) 2.1 x10^3/uL (1.0-4.8) Monocytes # (Auto) 2.7 x10^3/uL (0.0-1.1) Eosinophils # (Auto) 0.4 x10^3/uL (0.0-0.7) Basophils # (Auto) 0.1 x10^3/uL (0.0-0.2) Sodium Level 134 mmol/L (136-145) Potassium Level 3.3 mmol/L (3.5-5.1) Chloride Level 100 mmol/L (98-107) Carbon Dioxide Level 28 mmol/L (21-32) Anion Gap 6 (6-14) Blood Urea Nitrogen 8 mg/dL (8-26) Creatinine 1.1 mg/dL (0.7-1.3) Estimated GFR (Cockcroft-Gault) 73.4 BUN/Creatinine Ratio 7 (6-20) Glucose Level 135 mg/dL (70-99) Calcium Level 8.5 mg/dL (8.5-10.1) Total Bilirubin 0.6 mg/dL (0.2-1.0) Aspartate Amino Transf (AST/SGOT) 37 U/L (15-37) Alanine Aminotransferase (ALT/SGPT) 83 U/L (16-63) Alkaline Phosphatase 127 U/L (46-116) Total Protein 6.8 g/dL (6.4-8.2) Albumin 2.7 g/dL (3.4-5.0) Albumin/Globulin Ratio 0.7 (1.0-1.7) Glucose (Fingerstick) 103 mg/dL (70-99) 106 mg/dL (70-99) 113 mg/dL (70-99) Test 04/10/18 04:45 04/10/18 07:54 White Blood Count 20.5 x10^3/uL (4.0-11.0) Red Blood Count 3.54 x10^6/uL (4.30-5.70) Hemoglobin 11.1 g/dL (13.0-17.5) Hematocrit 32.8 % (39.0-53.0) Mean Corpuscular Volume 93 fL (79-100) Mean Corpuscular Hemoglobin 31 pg (25-35) Mean Corpuscular Hemoglobin Concent 34 g/dL (31-37) Red Cell Distribution Width 13.7 % (11.5-14.5) Platelet Count 704 x10^3/uL (140-400) Neutrophils (%) (Auto) 73 % (31-73) Lymphocytes (%) (Auto) 10 % (24-48) Monocytes (%) (Auto) 15 % (0-9) Eosinophils (%) (Auto) 2 % (0-3) Basophils (%) (Auto) 0 % (0-3) Neutrophils # (Auto) 15.0 x10^3uL (1.8-7.7) Lymphocytes # (Auto) 2.0 x10^3/uL (1.0-4.8) Monocytes # (Auto) 3.0 x10^3/uL (0.0-1.1) Eosinophils # (Auto) 0.4 x10^3/uL (0.0-0.7) Basophils # (Auto) 0.1 x10^3/uL (0.0-0.2) Sodium Level 139 mmol/L (136-145) Potassium Level 3.5 mmol/L (3.5-5.1) Chloride Level 101 mmol/L (98-107) Carbon Dioxide Level 28 mmol/L (21-32) Anion Gap 10 (6-14) Blood Urea Nitrogen 9 mg/dL (8-26) Creatinine 1.1 mg/dL (0.7-1.3) Estimated GFR (Cockcroft-Gault) 73.4 BUN/Creatinine Ratio 8 (6-20) Glucose Level 115 mg/dL (70-99) Calcium Level 8.9 mg/dL (8.5-10.1) Total Bilirubin 0.5 mg/dL (0.2-1.0) Aspartate Amino Transf (AST/SGOT) 32 U/L (15-37) Alanine Aminotransferase (ALT/SGPT) 79 U/L (16-63) Alkaline Phosphatase 115 U/L (46-116) Total Protein 6.5 g/dL (6.4-8.2) Albumin 2.6 g/dL (3.4-5.0) Albumin/Globulin Ratio 0.7 (1.0-1.7) Glucose (Fingerstick) 123 mg/dL (70-99) Laboratory Tests Test 04/09/18 11:31 04/09/18 16:48 04/09/18 21:07 04/10/18 04:45 Glucose (Fingerstick) 103 mg/dL (70-99) 106 mg/dL (70-99) 113 mg/dL (70-99) White Blood Count 20.5 x10^3/uL (4.0-11.0) Red Blood Count 3.54 x10^6/uL (4.30-5.70) Hemoglobin 11.1 g/dL (13.0-17.5) Hematocrit 32.8 % (39.0-53.0) Mean Corpuscular Volume 93 fL (79-100) Mean Corpuscular Hemoglobin 31 pg (25-35) Mean Corpuscular Hemoglobin Concent 34 g/dL (31-37) Red Cell Distribution Width 13.7 % (11.5-14.5) Platelet Count 704 x10^3/uL (140-400) Neutrophils (%) (Auto) 73 % (31-73) Lymphocytes (%) (Auto) 10 % (24-48) Monocytes (%) (Auto) 15 % (0-9) Eosinophils (%) (Auto) 2 % (0-3) Basophils (%) (Auto) 0 % (0-3) Neutrophils # (Auto) 15.0 x10^3uL (1.8-7.7) Lymphocytes # (Auto) 2.0 x10^3/uL (1.0-4.8) Monocytes # (Auto) 3.0 x10^3/uL (0.0-1.1) Eosinophils # (Auto) 0.4 x10^3/uL (0.0-0.7) Basophils # (Auto) 0.1 x10^3/uL (0.0-0.2) Sodium Level 139 mmol/L (136-145) Potassium Level 3.5 mmol/L (3.5-5.1) Chloride Level 101 mmol/L (98-107) Carbon Dioxide Level 28 mmol/L (21-32) Anion Gap 10 (6-14) Blood Urea Nitrogen 9 mg/dL (8-26) Creatinine 1.1 mg/dL (0.7-1.3) Estimated GFR (Cockcroft-Gault) 73.4 BUN/Creatinine Ratio 8 (6-20) Glucose Level 115 mg/dL (70-99) Calcium Level 8.9 mg/dL (8.5-10.1) Total Bilirubin 0.5 mg/dL (0.2-1.0) Aspartate Amino Transf (AST/SGOT) 32 U/L (15-37) Alanine Aminotransferase (ALT/SGPT) 79 U/L (16-63) Alkaline Phosphatase 115 U/L (46-116) Total Protein 6.5 g/dL (6.4-8.2) Albumin 2.6 g/dL (3.4-5.0) Albumin/Globulin Ratio 0.7 (1.0-1.7) Test 04/10/18 07:54 Glucose (Fingerstick) 123 mg/dL (70-99) Vitals/I & O Vital Sign - Last 24 Hours 04/09/18 04/09/18 04/09/18 04/09/18 11:00 11:25 11:42 15:00 Temp 98.8 100.4 98.8 100.4 Pulse 79 67 Resp 16 16 B/P (MAP) 157/80 (105) 159/84 (109) Pulse Ox 96 97 O2 Delivery Room Air Room Air Room Air Room Air 04/09/18 04/09/18 04/09/18 04/09/18 15:28 16:30 19:25 19:40 Temp 99.5 99.5 Pulse 78 Resp 16 16 18 B/P (MAP) 156/86 (109) Pulse Ox 96 O2 Delivery Room Air Room Air Room Air 04/09/18 04/09/18 04/09/18 04/10/18 20:00 23:23 23:54 03:35 Temp 98.5 98.5 98.5 98.5 Pulse 76 78 Resp 18 18 B/P (MAP) 148/87 (107) 146/85 (105) Pulse Ox 95 96 O2 Delivery Room Air Room Air BiPAP/CPAP BiPAP/CPAP 04/10/18 04/10/18 04/10/18 04/10/18 03:54 07:00 08:02 09:27 Temp 98.1 98.1 Pulse 69 Resp 18 B/P (MAP) 165/93 (117) Pulse Ox 94 96 96 O2 Delivery BiPAP/CPAP Room Air Room Air Room Air Intake and Output 04/09/18 04/09/18 04/10/18 15:00 23:00 07:00 Intake Total 1240 ml 600 ml Output Total 1155 ml Balance 1240 ml -555 ml Assessment Pancreatic serous cystadenoma, post resection. Plan of Care: Continue current Tx, Mgmt TROY SMITH MD Apr 10, 2018 10:59
[2018-04-10 11:00] VITALS: BP 130/76
--- NOTE | 2018-04-10 14:22 | PDOC ---
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 - - Macrocystic serous cystadenoma of pancreas, forming a multicystic tumor mass adjacent to the proximal stapled margin and just beneath the anterior resection margin measuring 2.2 cm in greatest dimension. Serous cystadenoma, s/p resection. 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 Vitals Vitals Vital Signs Date Time Temp Pulse Resp B/P (MAP) Pulse Ox O2 Delivery O2 Flow Rate FiO2 04/10/18 13:15 96 Room Air 04/10/18 11:00 97.9 70 18 130/76 (94) 97.9 04/09/18 08:00 2.0 Physical Exam General: Alert, Oriented X3, Cooperative, No acute distress Heart: Regular rate, Normal S1, Normal S2 Lungs: Clear Abdomen: Soft, No tenderness, Other (wound vac in place, drain in place with minimal output) Extremities: No clubbing, No cyanosis, No edema Skin: No rashes, No breakdown Labs LABS Laboratory Tests Test 04/09/18 16:48 04/09/18 21:07 04/10/18 04:45 04/10/18 07:54 Glucose (Fingerstick) 106 mg/dL (70-99) 113 mg/dL (70-99) 123 mg/dL (70-99) White Blood Count 20.5 x10^3/uL (4.0-11.0) Red Blood Count 3.54 x10^6/uL (4.30-5.70) Hemoglobin 11.1 g/dL (13.0-17.5) Hematocrit 32.8 % (39.0-53.0) Mean Corpuscular Volume 93 fL (79-100) Mean Corpuscular Hemoglobin 31 pg (25-35) Mean Corpuscular Hemoglobin Concent 34 g/dL (31-37) Red Cell Distribution Width 13.7 % (11.5-14.5) Platelet Count 704 x10^3/uL (140-400) Neutrophils (%) (Auto) 73 % (31-73) Lymphocytes (%) (Auto) 10 % (24-48) Monocytes (%) (Auto) 15 % (0-9) Eosinophils (%) (Auto) 2 % (0-3) Basophils (%) (Auto) 0 % (0-3) Neutrophils # (Auto) 15.0 x10^3uL (1.8-7.7) Lymphocytes # (Auto) 2.0 x10^3/uL (1.0-4.8) Monocytes # (Auto) 3.0 x10^3/uL (0.0-1.1) Eosinophils # (Auto) 0.4 x10^3/uL (0.0-0.7) Basophils # (Auto) 0.1 x10^3/uL (0.0-0.2) Sodium Level 139 mmol/L (136-145) Potassium Level 3.5 mmol/L (3.5-5.1) Chloride Level 101 mmol/L (98-107) Carbon Dioxide Level 28 mmol/L (21-32) Anion Gap 10 (6-14) Blood Urea Nitrogen 9 mg/dL (8-26) Creatinine 1.1 mg/dL (0.7-1.3) Estimated GFR (Cockcroft-Gault) 73.4 BUN/Creatinine Ratio 8 (6-20) Glucose Level 115 mg/dL (70-99) Calcium Level 8.9 mg/dL (8.5-10.1) Total Bilirubin 0.5 mg/dL (0.2-1.0) Aspartate Amino Transf (AST/SGOT) 32 U/L (15-37) Alanine Aminotransferase (ALT/SGPT) 79 U/L (16-63) Alkaline Phosphatase 115 U/L (46-116) Total Protein 6.5 g/dL (6.4-8.2) Albumin 2.6 g/dL (3.4-5.0) Albumin/Globulin Ratio 0.7 (1.0-1.7) Test 04/10/18 10:26 Glucose (Fingerstick) 130 mg/dL (70-99) Comment Review of Relevant I have reviewed the following items gladys (where applicable) has been applied. Labs Laboratory Tests Test 04/08/18 16:22 04/08/18 21:06 04/09/18 07:28 04/09/18 07:42 Glucose (Fingerstick) 83 mg/dL (70-99) 125 mg/dL (70-99) 146 mg/dL (70-99) White Blood Count 21.5 x10^3/uL (4.0-11.0) Red Blood Count 3.69 x10^6/uL (4.30-5.70) Hemoglobin 11.5 g/dL (13.0-17.5) Hematocrit 34.4 % (39.0-53.0) Mean Corpuscular Volume 93 fL (79-100) Mean Corpuscular Hemoglobin 31 pg (25-35) Mean Corpuscular Hemoglobin Concent 33 g/dL (31-37) Red Cell Distribution Width 13.9 % (11.5-14.5) Platelet Count 637 x10^3/uL (140-400) Neutrophils (%) (Auto) 75 % (31-73) Lymphocytes (%) (Auto) 10 % (24-48) Monocytes (%) (Auto) 13 % (0-9) Eosinophils (%) (Auto) 2 % (0-3) Basophils (%) (Auto) 1 % (0-3) Neutrophils # (Auto) 16.1 x10^3uL (1.8-7.7) Lymphocytes # (Auto) 2.1 x10^3/uL (1.0-4.8) Monocytes # (Auto) 2.7 x10^3/uL (0.0-1.1) Eosinophils # (Auto) 0.4 x10^3/uL (0.0-0.7) Basophils # (Auto) 0.1 x10^3/uL (0.0-0.2) Sodium Level 134 mmol/L (136-145) Potassium Level 3.3 mmol/L (3.5-5.1) Chloride Level 100 mmol/L (98-107) Carbon Dioxide Level 28 mmol/L (21-32) Anion Gap 6 (6-14) Blood Urea Nitrogen 8 mg/dL (8-26) Creatinine 1.1 mg/dL (0.7-1.3) Estimated GFR (Cockcroft-Gault) 73.4 BUN/Creatinine Ratio 7 (6-20) Glucose Level 135 mg/dL (70-99) Calcium Level 8.5 mg/dL (8.5-10.1) Total Bilirubin 0.6 mg/dL (0.2-1.0) Aspartate Amino Transf (AST/SGOT) 37 U/L (15-37) Alanine Aminotransferase (ALT/SGPT) 83 U/L (16-63) Alkaline Phosphatase 127 U/L (46-116) Total Protein 6.8 g/dL (6.4-8.2) Albumin 2.7 g/dL (3.4-5.0) Albumin/Globulin Ratio 0.7 (1.0-1.7) Test 04/09/18 11:31 04/09/18 16:48 04/09/18 21:07 04/10/18 04:45 Glucose (Fingerstick) 103 mg/dL (70-99) 106 mg/dL (70-99) 113 mg/dL (70-99) White Blood Count 20.5 x10^3/uL (4.0-11.0) Red Blood Count 3.54 x10^6/uL (4.30-5.70) Hemoglobin 11.1 g/dL (13.0-17.5) Hematocrit 32.8 % (39.0-53.0) Mean Corpuscular Volume 93 fL (79-100) Mean Corpuscular Hemoglobin 31 pg (25-35) Mean Corpuscular Hemoglobin Concent 34 g/dL (31-37) Red Cell Distribution Width 13.7 % (11.5-14.5) Platelet Count 704 x10^3/uL (140-400) Neutrophils (%) (Auto) 73 % (31-73) Lymphocytes (%) (Auto) 10 % (24-48) Monocytes (%) (Auto) 15 % (0-9) Eosinophils (%) (Auto) 2 % (0-3) Basophils (%) (Auto) 0 % (0-3) Neutrophils # (Auto) 15.0 x10^3uL (1.8-7.7) Lymphocytes # (Auto) 2.0 x10^3/uL (1.0-4.8) Monocytes # (Auto) 3.0 x10^3/uL (0.0-1.1) Eosinophils # (Auto) 0.4 x10^3/uL (0.0-0.7) Basophils # (Auto) 0.1 x10^3/uL (0.0-0.2) Sodium Level 139 mmol/L (136-145) Potassium Level 3.5 mmol/L (3.5-5.1) Chloride Level 101 mmol/L (98-107) Carbon Dioxide Level 28 mmol/L (21-32) Anion Gap 10 (6-14) Blood Urea Nitrogen 9 mg/dL (8-26) Creatinine 1.1 mg/dL (0.7-1.3) Estimated GFR (Cockcroft-Gault) 73.4 BUN/Creatinine Ratio 8 (6-20) Glucose Level 115 mg/dL (70-99) Calcium Level 8.9 mg/dL (8.5-10.1) Total Bilirubin 0.5 mg/dL (0.2-1.0) Aspartate Amino Transf (AST/SGOT) 32 U/L (15-37) Alanine Aminotransferase (ALT/SGPT) 79 U/L (16-63) Alkaline Phosphatase 115 U/L (46-116) Total Protein 6.5 g/dL (6.4-8.2) Albumin 2.6 g/dL (3.4-5.0) Albumin/Globulin Ratio 0.7 (1.0-1.7) Test 04/10/18 07:54 04/10/18 10:26 Glucose (Fingerstick) 123 mg/dL (70-99) 130 mg/dL (70-99) Laboratory Tests Test 04/09/18 16:48 04/09/18 21:07 04/10/18 04:45 04/10/18 07:54 Glucose (Fingerstick) 106 mg/dL (70-99) 113 mg/dL (70-99) 123 mg/dL (70-99) White Blood Count 20.5 x10^3/uL (4.0-11.0) Red Blood Count 3.54 x10^6/uL (4.30-5.70) Hemoglobin 11.1 g/dL (13.0-17.5) Hematocrit 32.8 % (39.0-53.0) Mean Corpuscular Volume 93 fL (79-100) Mean Corpuscular Hemoglobin 31 pg (25-35) Mean Corpuscular Hemoglobin Concent 34 g/dL (31-37) Red Cell Distribution Width 13.7 % (11.5-14.5) Platelet Count 704 x10^3/uL (140-400) Neutrophils (%) (Auto) 73 % (31-73) Lymphocytes (%) (Auto) 10 % (24-48) Monocytes (%) (Auto) 15 % (0-9) Eosinophils (%) (Auto) 2 % (0-3) Basophils (%) (Auto) 0 % (0-3) Neutrophils # (Auto) 15.0 x10^3uL (1.8-7.7) Lymphocytes # (Auto) 2.0 x10^3/uL (1.0-4.8) Monocytes # (Auto) 3.0 x10^3/uL (0.0-1.1) Eosinophils # (Auto) 0.4 x10^3/uL (0.0-0.7) Basophils # (Auto) 0.1 x10^3/uL (0.0-0.2) Sodium Level 139 mmol/L (136-145) Potassium Level 3.5 mmol/L (3.5-5.1) Chloride Level 101 mmol/L (98-107) Carbon Dioxide Level 28 mmol/L (21-32) Anion Gap 10 (6-14) Blood Urea Nitrogen 9 mg/dL (8-26) Creatinine 1.1 mg/dL (0.7-1.3) Estimated GFR (Cockcroft-Gault) 73.4 BUN/Creatinine Ratio 8 (6-20) Glucose Level 115 mg/dL (70-99) Calcium Level 8.9 mg/dL (8.5-10.1) Total Bilirubin 0.5 mg/dL (0.2-1.0) Aspartate Amino Transf (AST/SGOT) 32 U/L (15-37) Alanine Aminotransferase (ALT/SGPT) 79 U/L (16-63) Alkaline Phosphatase 115 U/L (46-116) Total Protein 6.5 g/dL (6.4-8.2) Albumin 2.6 g/dL (3.4-5.0) Albumin/Globulin Ratio 0.7 (1.0-1.7) Test 04/10/18 10:26 Glucose (Fingerstick) 130 mg/dL (70-99) Medications Current Medications Heparin Sodium (Porcine) 1000 unit/Sodium Chloride 1,001 ml @ 1,001 mls/hr 1X ONCE IRR ; Start 04/02/18 at 06:00; Stop 04/02/18 at 06:59; Status DC Cefazolin Sodium/ Dextrose 50 ml @ 100 mls/hr 1X PREOP PRN IV PRIOR TO PROCEDURE Last administered on 04/02/18at 08:43; Start 04/02/18 at 06:00; Stop 04/02 at 18:00; Status DC Ondansetron HCl (Zofran) 4 mg PRN Q6HRS PRN IV NAUSEA/VOMITING Last administered on 04/02/18at 17:33; Start 04/02/18 at 07:00; Stop 04/03/18 at 06:59; Status DC Fentanyl Citrate (Fentanyl 2ml Vial) 25 mcg PRN Q5MIN PRN IV MILD PAIN; Start 04/02/18 at 07:00; Stop 04/03/18 at 06:59; Status DC Fentanyl Citrate (Fentanyl 2ml Vial) 50 mcg PRN Q5MIN PRN IV MODERATE TO SEVERE PAIN; Start 04/02/18 at 07:00; Stop 04/03/18 at 06:59; Status DC Morphine Sulfate (Morphine Sulfate) 1 mg PRN Q10MIN PRN IV SEVERE PAIN; Start 04/02/18 at 07:00; Stop 04/03/18 at 06:59; Status DC Ringer's Solution 1,000 ml @ 30 mls/hr Q24H IV Last administered on 04/02/18at 07:00; Start 04/02/18 at 07:00; Stop 04/02/18 at 18:59; Status DC Lidocaine HCl (Xylocaine-Mpf 1% 2ml Vial) 2 ml PRN 1X PRN ID IV START; Start at 07:00; Stop 04/03/18 at 06:59; Status DC Hydromorphone HCl (Dilaudid) 0.5 mg PRN Q10MIN PRN IV SEV PAIN, Second choice; Start 04/02/18 at 07:00; Stop 04/03/18 at 06:59; Status DC Prochlorperazine Edisylate (Compazine) 5 mg PACU PRN PRN IV NAUSEA, MRX1; Start 04/02/18 at 07:00; Stop 04/03/18 at 06:59; Status DC Bupivacaine HCl/ Epinephrine Bitart (Marcaine-Epi 0.5%-[id number]) 50 ml STK-MED ONCE .ROUTE Last administered on 04/02/18at 09:00; Start 04/02/18 at 05:50; Stop 04/02/18 at 06:50; Status DC Cellulose (Surgicel Hemostat 2x3) 1 each STK-MED ONCE .ROUTE ; Start 04/02/18 at 05:50; Stop 04/02/18 at 06:50; Status DC Iohexol (Omnipaque 300 Mg/ml) 100 ml STK-MED ONCE .ROUTE ; Start 04/02/18 at 05: 50; Stop 04/02/18 at 06:50; Status DC Bisacodyl (Dulcolax Supp) 10 mg STK-MED ONCE .ROUTE ; Start 04/02/18 at 05:50; Stop 04/02/18 at 06:51; Status DC Bupivacaine HCl/ Epinephrine Bitart (Marcaine-Epi 0.5%-1:[id number]) 50 ml STK-MED ONCE .ROUTE ; Start 04/02/18 at 06:10; Stop 04/02/18 at 07:11; Status DC Cellulose (Surgicel Hemostat 2x3) 1 each STK-MED ONCE .ROUTE ; Start 04/02/18 at 06:10; Stop 04/02/18 at 07:11; Status DC Bisacodyl (Dulcolax Supp) 10 mg STK-MED ONCE .ROUTE ; Start 04/02/18 at 06:10; Stop 04/02/18 at 07:11; Status DC Iohexol (Omnipaque 300 Mg/ml) 100 ml STK-MED ONCE .ROUTE ; Start 04/02/18 at 06: 11; Stop 04/02/18 at 07:12; Status DC Lidocaine HCl (Xylocaine-Mpf 2% Vial) 2 ml STK-MED ONCE .ROUTE ; Start 04/02/18 at 07:30; Stop 04/02/18 at 07:31; Status DC Propofol 20 ml @ As Directed STK-MED ONCE IV ; Start 04/02/18 at 07:32; Stop 04/02 at 07:33; Status DC Lidocaine HCl (Xylocaine-Mpf 1% 5ml Vial) 5 ml STK-MED ONCE .ROUTE ; Start at 07:32; Stop 04/02/18 at 07:33; Status DC Rocuronium [place] (Zemuron) 100 mg STK-MED ONCE .ROUTE ; Start 04/02/18 at 07:32 ; Stop 04/02/18 at 07:33; Status DC Fentanyl Citrate (Fentanyl 5ml Vial) 250 mcg STK-MED ONCE .ROUTE ; Start at 07:33; Stop 04/02/18 at 07:34; Status DC Dexamethasone Sodium Phosphate (Decadron) 20 mg STK-MED ONCE .ROUTE ; Start 04/02 at 08:42; Stop 04/02/18 at 08:43; Status DC Ephedrine Sulfate (ePHEDrine PF IN SALINE SYRINGE) 50 mg STK-MED ONCE IV ; Start 04/02/18 at 08:42; Stop 04/02/18 at 08:43; Status DC Sodium Chloride 38.4 ml/Fentanyl Citrate 250 mcg/ Ropivacaine 10 ml/ Epidural Dosage Infused (Pha) 53.4 ml @ 0 mls/hr CONT PRN EP SEE PROTOCOL TABLE Last administered on 04/07/18at 06:52; Start 04/02/18 at 09:00; Stop 04/07/18 at 16:33; Status DC Naloxone HCl (Narcan) 0.1 mg PRN 1X PRN IV RESP DEPRESSION, MRX1; Start at 09:00 Bupivacaine HCl (Sensorcaine Mpf 0.25%) 30 ml STK-MED ONCE .ROUTE ; Start at 08:53; Stop 04/02/18 at 08:54; Status DC Famotidine (Pepcid Vial) 20 mg STK-MED ONCE .ROUTE ; Start 04/02/18 at 08:58; Stop 04/02/18 at 08:59; Status DC Hydrocortisone Sodium Succinate (Solu-CORTEF) 100 mg STK-MED ONCE .ROUTE ; Start 04/02/18 at 08:58; Stop 04/02/18 at 08:59; Status DC Diphenhydramine HCl (Benadryl) 50 mg STK-MED ONCE .ROUTE ; Start 04/02/18 at 08: 58; Stop 04/02/18 at 08:59; Status DC Metronidazole 200 ml @ 200 mls/hr 1X ONCE IV Last administered on 04/02/18at 09 :11; Start 04/02/18 at 09:15; Stop 04/02/18 at 10:14; Status DC Desflurane (Suprane) 90 ml STK-MED ONCE IH ; Start 04/02/18 at 09:21; Stop at 09:22; Status DC Glycopyrrolate (Robinul) 1 mg STK-MED ONCE .ROUTE ; Start 04/02/18 at 10:29; Stop 04/02/18 at 10:30; Status DC Neostigmine Methylsulfate (Neostigmine Methylsulfate) 5 mg STK-MED ONCE .ROUTE ; Start 04/02/18 at 10:29; Stop 04/02/18 at 10:30; Status DC Ondansetron HCl (Zofran) 4 mg STK-MED ONCE .ROUTE ; Start 04/02/18 at 10:30; Stop 04/02/18 at 10:31; Status DC Phenylephrine HCl (PHENYLEPHRINE in 0.9% NACL PF) 1 mg STK-MED ONCE IV ; Start 04/02/18 at 11:54; Stop 04/02/18 at 11:55; Status DC Cellulose (Surgicel Hemostat 4x8) 1 each STK-MED ONCE .ROUTE Last administered on 04/02/18at 12:00; Start 04/02/18 at 10:58; Stop 04/02/18 at 11:58; Status DC Sodium Chloride (Normal Saline Flush) 3 ml QSHIFT PRN IV AFTER MEDS AND BLOOD DRAWS; Start 04/02/18 at 13:45 Ringer's Solution 1,000 ml @ 125 mls/hr Q8H IV Last administered on 04/06/18at 06:07; Start 04/02/18 at 14:00; Stop 04/06/18 at 14:43; Status DC Ondansetron HCl (Zofran) 4 mg PRN Q6HRS PRN IV NAUESA, 1ST CHOICE Last administered on 04/07/18at 10:56; Start 04/02/18 at 13:45 Heparin Sodium (Porcine) (Heparin Sq) 5,000 unit Q12HR SQ Last administered on 04/07/18at 09:14; Start 04/03/18 at 09:00; Stop 04/07/18 at 13:02; Status DC Throat Lozenges (Chloraseptic) 1 spray PRN Q2HR PRN PO SORE THROAT; Start at 05:45 Dextrose (Dextrose 50%-Water Syringe) 12.5 gm PRN Q15MIN PRN IV SEE COMMENTS; Start 04/03/18 at 08:00 Ringer's Solution 500 ml @ 500 mls/hr 1X ONCE IV Last administered on at 11:30; Start 04/03/18 at 11:30; Stop 04/03/18 at 12:29; Status DC Insulin Human Lispro (HumaLOG) 0-5 UNITS TIDWMEALS SQ ; Start 04/03/18 at 17:00 Dextrose (Dextrose 50%-Water Syringe) 12.5 gm PRN Q15MIN PRN IV SEE COMMENTS; Start 04/03/18 at 13:30; Status UNV Famotidine (Pepcid Vial) 20 mg QHS IVP Last administered on 04/07/18at 22:08; Start 04/03/18 at 21:00; Stop 04/08/18 at 13:36; Status DC Oxycodone/ Acetaminophen (Percocet 5/325) 1 tab PRN Q4HRS PRN PO MODERATE PAIN Last administered on 04/10/18at 11:59; Start 04/05/18 at 08:45 Amino Acids/ Glycerin/ Electrolytes 1,000 ml @ 80 mls/hr [id number] IV Last administered on 04/07/18at 05:25; Start 04/06/18 at 15:30; Stop 04/07/18 at 15:38; Status DC Fluticasone Propionate (Flonase) 2 spray DAILY NS Last administered on at 09:23; Start 04/07/18 at 12:00 Cetirizine HCl (ZyrTEC) 10 mg PRN DAILY PRN PO ALLERGIES Last administered on at 13:21; Start 04/07/18 at 11:30; Stop 04/07/18 at 19:11; Status DC Oxycodone/ Acetaminophen (Percocet 5/325) 2 tab PRN Q4HRS PRN PO SEVERE PAIN Last administered on 04/08/18at 03:49; Start 04/07/18 at 12:00 Acetaminophen (Tylenol) 650 mg PRN Q6HRS PRN PEG MILD PAIN / TEMP; Start at 12:00 Hydromorphone HCl (Dilaudid) 0.4 mg PRN Q4HRS PRN IVP MODERATE-SEVERE PAIN; Start 04/07/18 at 12:00; Stop 04/08/18 at 10:10; Status DC Enoxaparin Sodium (Lovenox 40mg Syringe) 40 mg Q12HR SQ Last administered on 07/16at 09:24; Start 04/08/18 at 09:00 Potassium Chloride (Klor-Con) 20 meq 1X ONCE PO Last administered on 04/07/18at 13:27; Start 04/07/18 at 14:00; Stop 04/07/18 at 14:01; Status DC Potassium Chloride/Dextrose/ Sod Cl 1,000 ml @ 80 mls/hr [id number] IV Last administered on 04/08/18at 07:10; Start 04/07/18 at 16:00; Stop 04/08/18 at 10:10 ; Status DC Cetirizine HCl (ZyrTEC) 10 mg DAILY PO Last administered on 04/10/18at 09:24; Start 04/08/18 at 09:00 Sertraline HCl (Zoloft) 50 mg DAILY PO ; Start 04/08/18 at 09:00; Stop 04/08/18 at 10:39; Status DC Famotidine (Pepcid) 20 mg QHS PO Last administered on 04/09/18at 21:20; Start at 21:00 Potassium Chloride (Klor-Con) 40 meq 1X ONCE PO Last administered on at 14:04; Start 04/09/18 at 13:45; Stop 04/09/18 at 13:46; Status DC Active Scripts Active Reported Multivitamins (Multivitamin) 1 Each Tablet 1 Tab PO DAILY Zyrtec (Cetirizine Hcl) 10 Mg Tablet 1 Tab PO DAILY Hydrochlorothiazide Tablet (Hydrochlorothiazide) 25 Mg Tablet 25 Mg PO DAILY Ranitidine Hcl 150 Mg Capsule 150 Mg PO DAILY Allopurinol 100 Mg Tablet 100 Mg PO DAILY Vitals/I & O Vital Sign - Last 24 Hours 04/09/18 04/09/18 04/09/18 04/09/18 15:00 15:28 16:30 19:25 Temp 100.4 99.5 100.4 99.5 Pulse 67 78 Resp 16 16 16 18 B/P (MAP) 159/84 (109) 156/86 (109) Pulse Ox 97 96 O2 Delivery Room Air Room Air Room Air 04/09/18 04/09/18 04/09/18 04/09/18 19:40 20:00 23:23 23:54 Temp 98.5 98.5 Pulse 76 Resp 18 B/P (MAP) 148/87 (107) Pulse Ox 95 O2 Delivery Room Air Room Air Room Air BiPAP/CPAP 04/10/18 04/10/18 04/10/18 04/10/18 03:35 03:54 07:00 08:02 Temp 98.5 98.1 98.5 98.1 Pulse 78 69 Resp 18 18 B/P (MAP) 146/85 (105) 165/93 (117) Pulse Ox 96 94 96 O2 Delivery BiPAP/CPAP BiPAP/CPAP Room Air Room Air 04/10/18 04/10/18 04/10/18 11:00 11:59 13:15 Temp 97.9 97.9 Pulse 70 Resp 18 B/P (MAP) 130/76 (94) Pulse Ox 95 96 96 O2 Delivery Room Air Room Air Room Air Intake and Output 04/09/18 04/09/18 04/10/18 15:00 23:00 07:00 Intake Total 1240 ml 600 ml Output Total 1155 ml Balance 1240 ml -555 ml ARIANNE MONTES MD Apr 10, 2018 14:22
--- NOTE | 2018-04-10 15:31 | PDOC ---
SURGICAL PROGRESS NOTE Subjective ready to go home Vital Signs Vital Signs Date Time Temp Pulse Resp B/P (MAP) Pulse Ox O2 Delivery O2 Flow Rate FiO2 04/10/18 13:15 96 Room Air 04/10/18 11:00 97.9 70 18 130/76 (94) 97.9 04/09/18 08:00 2.0 I&O Intake and Output 04/10/18 07:00 Intake Total 1840 ml Output Total 1155 ml Balance 685 ml Intake Oral 1840 ml Output Urine Total 1150 ml Drainage Total 5 ml # Voids 2 PATIENT HAS A ENRIQUE: No General: Alert, Oriented X3, Cooperative, No acute distress Abdomen: Soft, Other (scant drainage for LUQ drain) Labs Laboratory Tests Test 04/08/18 16:22 04/08/18 21:06 04/09/18 07:28 04/09/18 07:42 Glucose (Fingerstick) 83 mg/dL (70-99) 125 mg/dL (70-99) 146 mg/dL (70-99) White Blood Count 21.5 x10^3/uL (4.0-11.0) Red Blood Count 3.69 x10^6/uL (4.30-5.70) Hemoglobin 11.5 g/dL (13.0-17.5) Hematocrit 34.4 % (39.0-53.0) Mean Corpuscular Volume 93 fL (79-100) Mean Corpuscular Hemoglobin 31 pg (25-35) Mean Corpuscular Hemoglobin Concent 33 g/dL (31-37) Red Cell Distribution Width 13.9 % (11.5-14.5) Platelet Count 637 x10^3/uL (140-400) Neutrophils (%) (Auto) 75 % (31-73) Lymphocytes (%) (Auto) 10 % (24-48) Monocytes (%) (Auto) 13 % (0-9) Eosinophils (%) (Auto) 2 % (0-3) Basophils (%) (Auto) 1 % (0-3) Neutrophils # (Auto) 16.1 x10^3uL (1.8-7.7) Lymphocytes # (Auto) 2.1 x10^3/uL (1.0-4.8) Monocytes # (Auto) 2.7 x10^3/uL (0.0-1.1) Eosinophils # (Auto) 0.4 x10^3/uL (0.0-0.7) Basophils # (Auto) 0.1 x10^3/uL (0.0-0.2) Sodium Level 134 mmol/L (136-145) Potassium Level 3.3 mmol/L (3.5-5.1) Chloride Level 100 mmol/L (98-107) Carbon Dioxide Level 28 mmol/L (21-32) Anion Gap 6 (6-14) Blood Urea Nitrogen 8 mg/dL (8-26) Creatinine 1.1 mg/dL (0.7-1.3) Estimated GFR (Cockcroft-Gault) 73.4 BUN/Creatinine Ratio 7 (6-20) Glucose Level 135 mg/dL (70-99) Calcium Level 8.5 mg/dL (8.5-10.1) Total Bilirubin 0.6 mg/dL (0.2-1.0) Aspartate Amino Transf (AST/SGOT) 37 U/L (15-37) Alanine Aminotransferase (ALT/SGPT) 83 U/L (16-63) Alkaline Phosphatase 127 U/L (46-116) Total Protein 6.8 g/dL (6.4-8.2) Albumin 2.7 g/dL (3.4-5.0) Albumin/Globulin Ratio 0.7 (1.0-1.7) Test 04/09/18 11:31 04/09/18 16:48 04/09/18 21:07 04/10/18 04:45 Glucose (Fingerstick) 103 mg/dL (70-99) 106 mg/dL (70-99) 113 mg/dL (70-99) White Blood Count 20.5 x10^3/uL (4.0-11.0) Red Blood Count 3.54 x10^6/uL (4.30-5.70) Hemoglobin 11.1 g/dL (13.0-17.5) Hematocrit 32.8 % (39.0-53.0) Mean Corpuscular Volume 93 fL (79-100) Mean Corpuscular Hemoglobin 31 pg (25-35) Mean Corpuscular Hemoglobin Concent 34 g/dL (31-37) Red Cell Distribution Width 13.7 % (11.5-14.5) Platelet Count 704 x10^3/uL (140-400) Neutrophils (%) (Auto) 73 % (31-73) Lymphocytes (%) (Auto) 10 % (24-48) Monocytes (%) (Auto) 15 % (0-9) Eosinophils (%) (Auto) 2 % (0-3) Basophils (%) (Auto) 0 % (0-3) Neutrophils # (Auto) 15.0 x10^3uL (1.8-7.7) Lymphocytes # (Auto) 2.0 x10^3/uL (1.0-4.8) Monocytes # (Auto) 3.0 x10^3/uL (0.0-1.1) Eosinophils # (Auto) 0.4 x10^3/uL (0.0-0.7) Basophils # (Auto) 0.1 x10^3/uL (0.0-0.2) Sodium Level 139 mmol/L (136-145) Potassium Level 3.5 mmol/L (3.5-5.1) Chloride Level 101 mmol/L (98-107) Carbon Dioxide Level 28 mmol/L (21-32) Anion Gap 10 (6-14) Blood Urea Nitrogen 9 mg/dL (8-26) Creatinine 1.1 mg/dL (0.7-1.3) Estimated GFR (Cockcroft-Gault) 73.4 BUN/Creatinine Ratio 8 (6-20) Glucose Level 115 mg/dL (70-99) Calcium Level 8.9 mg/dL (8.5-10.1) Total Bilirubin 0.5 mg/dL (0.2-1.0) Aspartate Amino Transf (AST/SGOT) 32 U/L (15-37) Alanine Aminotransferase (ALT/SGPT) 79 U/L (16-63) Alkaline Phosphatase 115 U/L (46-116) Total Protein 6.5 g/dL (6.4-8.2) Albumin 2.6 g/dL (3.4-5.0) Albumin/Globulin Ratio 0.7 (1.0-1.7) Test 04/10/18 07:54 04/10/18 10:26 Glucose (Fingerstick) 123 mg/dL (70-99) 130 mg/dL (70-99) Laboratory Tests Test 04/09/18 16:48 04/09/18 21:07 04/10/18 04:45 04/10/18 07:54 Glucose (Fingerstick) 106 mg/dL (70-99) 113 mg/dL (70-99) 123 mg/dL (70-99) White Blood Count 20.5 x10^3/uL (4.0-11.0) Red Blood Count 3.54 x10^6/uL (4.30-5.70) Hemoglobin 11.1 g/dL (13.0-17.5) Hematocrit 32.8 % (39.0-53.0) Mean Corpuscular Volume 93 fL (79-100) Mean Corpuscular Hemoglobin 31 pg (25-35) Mean Corpuscular Hemoglobin Concent 34 g/dL (31-37) Red Cell Distribution Width 13.7 % (11.5-14.5) Platelet Count 704 x10^3/uL (140-400) Neutrophils (%) (Auto) 73 % (31-73) Lymphocytes (%) (Auto) 10 % (24-48) Monocytes (%) (Auto) 15 % (0-9) Eosinophils (%) (Auto) 2 % (0-3) Basophils (%) (Auto) 0 % (0-3) Neutrophils # (Auto) 15.0 x10^3uL (1.8-7.7) Lymphocytes # (Auto) 2.0 x10^3/uL (1.0-4.8) Monocytes # (Auto) 3.0 x10^3/uL (0.0-1.1) Eosinophils # (Auto) 0.4 x10^3/uL (0.0-0.7) Basophils # (Auto) 0.1 x10^3/uL (0.0-0.2) Sodium Level 139 mmol/L (136-145) Potassium Level 3.5 mmol/L (3.5-5.1) Chloride Level 101 mmol/L (98-107) Carbon Dioxide Level 28 mmol/L (21-32) Anion Gap 10 (6-14) Blood Urea Nitrogen 9 mg/dL (8-26) Creatinine 1.1 mg/dL (0.7-1.3) Estimated GFR (Cockcroft-Gault) 73.4 BUN/Creatinine Ratio 8 (6-20) Glucose Level 115 mg/dL (70-99) Calcium Level 8.9 mg/dL (8.5-10.1) Total Bilirubin 0.5 mg/dL (0.2-1.0) Aspartate Amino Transf (AST/SGOT) 32 U/L (15-37) Alanine Aminotransferase (ALT/SGPT) 79 U/L (16-63) Alkaline Phosphatase 115 U/L (46-116) Total Protein 6.5 g/dL (6.4-8.2) Albumin 2.6 g/dL (3.4-5.0) Albumin/Globulin Ratio 0.7 (1.0-1.7) Test 04/10/18 10:26 Glucose (Fingerstick) 130 mg/dL (70-99) Assessment/Plan s/p distal pancreatectomy, splenectomy d/c drain home today f/u with Dr Goldberg, two weeks d/w pt and his (an RN) questions answered HARMAN LION MD Apr 10, 2018 15:31
[2018-04-10] MEDS ORDERED: OXYC-323 PO ×2 (16:00→16:01)
[2018-04-10] MEDS ORDERED: ONDA4TAB12 PO (16:01)
--- NOTE | 2018-04-10 16:19 | PDOC3 ---
Discharge Summary Date of Admission: Apr 02, 2018 Date of Discharge: Apr 10, 2018 Follow-Up: 3-5 days Admitting Diagnosis comment: DISCHARGE DIAGNOSIS Chief Complaint s/p distal pancreatectomy and splenectomy 04/02/18 - - Macrocystic serous cystadenoma of pancreas, forming a multicystic tumor mass adjacent to the proximal stapled margin and just beneath the anterior resection margin measuring 2.2 cm in greatest dimension. Serous cystadenoma, s/p resection. 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 Griggs is a 42 old [sex] who presented with [ PANCREATIC CYST] CONDITION AT DISCHARGE: Improved Discharge Medications Current Medications Heparin Sodium (Porcine) 1000 unit/Sodium Chloride 1,001 ml @ 1,001 mls/hr 1X ONCE IRR ; Start 04/02/18 at 06:00; Stop 04/02/18 at 06:59; Status DC Cefazolin Sodium/ Dextrose 50 ml @ 100 mls/hr 1X PREOP PRN IV PRIOR TO PROCEDURE Last administered on 04/02/18at 08:43; Start 04/02/18 at 06:00; Stop 04/02 at 18:00; Status DC Ondansetron HCl (Zofran) 4 mg PRN Q6HRS PRN IV NAUSEA/VOMITING Last administered on 04/02/18at 17:33; Start 04/02/18 at 07:00; Stop 04/03/18 at 06:59; Status DC Fentanyl Citrate (Fentanyl 2ml Vial) 25 mcg PRN Q5MIN PRN IV MILD PAIN; Start 04/02/18 at 07:00; Stop 04/03/18 at 06:59; Status DC Fentanyl Citrate (Fentanyl 2ml Vial) 50 mcg PRN Q5MIN PRN IV MODERATE TO SEVERE PAIN; Start 04/02/18 at 07:00; Stop 04/03/18 at 06:59; Status DC Morphine Sulfate (Morphine Sulfate) 1 mg PRN Q10MIN PRN IV SEVERE PAIN; Start 04/02/18 at 07:00; Stop 04/03/18 at 06:59; Status DC Ringer's Solution 1,000 ml @ 30 mls/hr Q24H IV Last administered on 04/02/18at 07:00; Start 04/02/18 at 07:00; Stop 04/02/18 at 18:59; Status DC Lidocaine HCl (Xylocaine-Mpf 1% 2ml Vial) 2 ml PRN 1X PRN ID IV START; Start at 07:00; Stop 04/03/18 at 06:59; Status DC Hydromorphone HCl (Dilaudid) 0.5 mg PRN Q10MIN PRN IV SEV PAIN, Second choice; Start 04/02/18 at 07:00; Stop 04/03/18 at 06:59; Status DC Prochlorperazine Edisylate (Compazine) 5 mg PACU PRN PRN IV NAUSEA, MRX1; Start 04/02/18 at 07:00; Stop 04/03/18 at 06:59; Status DC Bupivacaine HCl/ Epinephrine Bitart (Marcaine-Epi 0.5%-[id number]) 50 ml STK-MED ONCE .ROUTE Last administered on 04/02/18at 09:00; Start 04/02/18 at 05:50; Stop 04/02/18 at 06:50; Status DC Cellulose (Surgicel Hemostat 2x3) 1 each STK-MED ONCE .ROUTE ; Start 04/02/18 at 05:50; Stop 04/02/18 at 06:50; Status DC Iohexol (Omnipaque 300 Mg/ml) 100 ml STK-MED ONCE .ROUTE ; Start 04/02/18 at 05: 50; Stop 04/02/18 at 06:50; Status DC Bisacodyl (Dulcolax Supp) 10 mg STK-MED ONCE .ROUTE ; Start 04/02/18 at 05:50; Stop 04/02/18 at 06:51; Status DC Bupivacaine HCl/ Epinephrine Bitart (Marcaine-Epi 0.5%-[id number]) 50 ml STK-MED ONCE .ROUTE ; Start 04/02/18 at 06:10; Stop 04/02/18 at 07:11; Status DC Cellulose (Surgicel Hemostat 2x3) 1 each STK-MED ONCE .ROUTE ; Start 04/02/18 at 06:10; Stop 04/02/18 at 07:11; Status DC Bisacodyl (Dulcolax Supp) 10 mg STK-MED ONCE .ROUTE ; Start 04/02/18 at 06:10; Stop 04/02/18 at 07:11; Status DC Iohexol (Omnipaque 300 Mg/ml) 100 ml STK-MED ONCE .ROUTE ; Start 04/02/18 at 06: 11; Stop 04/02/18 at 07:12; Status DC Lidocaine HCl (Xylocaine-Mpf 2% Vial) 2 ml STK-MED ONCE .ROUTE ; Start 04/02/18 at 07:30; Stop 04/02/18 at 07:31; Status DC Propofol 20 ml @ As Directed STK-MED ONCE IV ; Start 04/02/18 at 07:32; Stop 04/02 at 07:33; Status DC Lidocaine HCl (Xylocaine-Mpf 1% 5ml Vial) 5 ml STK-MED ONCE .ROUTE ; Start at 07:32; Stop 04/02/18 at 07:33; Status DC Rocuronium Alta (Zemuron) 100 mg STK-MED ONCE .ROUTE ; Start 04/02/18 at 07:32 ; Stop 04/02/18 at 07:33; Status DC Fentanyl Citrate (Fentanyl 5ml Vial) 250 mcg STK-MED ONCE .ROUTE ; Start at 07:33; Stop 04/02/18 at 07:34; Status DC Dexamethasone Sodium Phosphate (Decadron) 20 mg STK-MED ONCE .ROUTE ; Start 04/02 at 08:42; Stop 04/02/18 at 08:43; Status DC Ephedrine Sulfate (ePHEDrine PF IN SALINE SYRINGE) 50 mg STK-MED ONCE IV ; Start 04/02/18 at 08:42; Stop 04/02/18 at 08:43; Status DC Sodium Chloride 38.4 ml/Fentanyl Citrate 250 mcg/ Ropivacaine 10 ml/ Epidural Dosage Infused (Pha) 53.4 ml @ 0 mls/hr CONT PRN EP SEE PROTOCOL TABLE Last administered on 04/07/18at 06:52; Start 04/02/18 at 09:00; Stop 04/07/18 at 16:33; Status DC Naloxone HCl (Narcan) 0.1 mg PRN 1X PRN IV RESP DEPRESSION, MRX1; Start at 09:00 Bupivacaine HCl (Sensorcaine Mpf 0.25%) 30 ml STK-MED ONCE .ROUTE ; Start at 08:53; Stop 04/02/18 at 08:54; Status DC Famotidine (Pepcid Vial) 20 mg STK-MED ONCE .ROUTE ; Start 04/02/18 at 08:58; Stop 04/02/18 at 08:59; Status DC Hydrocortisone Sodium Succinate (Solu-CORTEF) 100 mg STK-MED ONCE .ROUTE ; Start 04/02/18 at 08:58; Stop 04/02/18 at 08:59; Status DC Diphenhydramine HCl (Benadryl) 50 mg STK-MED ONCE .ROUTE ; Start 04/02/18 at 08: 58; Stop 04/02/18 at 08:59; Status DC Metronidazole 200 ml @ 200 mls/hr 1X ONCE IV Last administered on 04/02/18at 09 :11; Start 04/02/18 at 09:15; Stop 04/02/18 at 10:14; Status DC Desflurane (Suprane) 90 ml STK-MED ONCE IH ; Start 04/02/18 at 09:21; Stop at 09:22; Status DC Glycopyrrolate (Robinul) 1 mg STK-MED ONCE .ROUTE ; Start 04/02/18 at 10:29; Stop 04/02/18 at 10:30; Status DC Neostigmine Methylsulfate (Neostigmine Methylsulfate) 5 mg STK-MED ONCE .ROUTE ; Start 04/02/18 at 10:29; Stop 04/02/18 at 10:30; Status DC Ondansetron HCl (Zofran) 4 mg STK-MED ONCE .ROUTE ; Start 04/02/18 at 10:30; Stop 04/02/18 at 10:31; Status DC Phenylephrine HCl (PHENYLEPHRINE in 0.9% NACL PF) 1 mg STK-MED ONCE IV ; Start 04/02/18 at 11:54; Stop 04/02/18 at 11:55; Status DC Cellulose (Surgicel Hemostat 4x8) 1 each STK-MED ONCE .ROUTE Last administered on 04/02/18at 12:00; Start 04/02/18 at 10:58; Stop 04/02/18 at 11:58; Status DC Sodium Chloride (Normal Saline Flush) 3 ml QSHIFT PRN IV AFTER MEDS AND BLOOD DRAWS; Start 04/02/18 at 13:45 Ringer's Solution 1,000 ml @ 125 mls/hr Q8H IV Last administered on 04/06/18at 06:07; Start 04/02/18 at 14:00; Stop 04/06/18 at 14:43; Status DC Ondansetron HCl (Zofran) 4 mg PRN Q6HRS PRN IV NAUESA, 1ST CHOICE Last administered on 04/07/18at 10:56; Start 04/02/18 at 13:45 Heparin Sodium (Porcine) (Heparin Sq) 5,000 unit Q12HR SQ Last administered on 04/07/18at 09:14; Start 04/03/18 at 09:00; Stop 04/07/18 at 13:02; Status DC Throat Lozenges (Chloraseptic) 1 spray PRN Q2HR PRN PO SORE THROAT; Start at 05:45 Dextrose (Dextrose 50%-Water Syringe) 12.5 gm PRN Q15MIN PRN IV SEE COMMENTS; Start 04/03/18 at 08:00 Ringer's Solution 500 ml @ 500 mls/hr 1X ONCE IV Last administered on at 11:30; Start 04/03/18 at 11:30; Stop 04/03/18 at 12:29; Status DC Insulin Human Lispro (HumaLOG) 0-5 UNITS TIDWMEALS SQ ; Start 04/03/18 at 17:00 Dextrose (Dextrose 50%-Water Syringe) 12.5 gm PRN Q15MIN PRN IV SEE COMMENTS; Start 04/03/18 at 13:30; Status UNV Famotidine (Pepcid Vial) 20 mg QHS IVP Last administered on 04/07/18at 22:08; Start 04/03/18 at 21:00; Stop 04/08/18 at 13:36; Status DC Oxycodone/ Acetaminophen (Percocet 5/325) 1 tab PRN Q4HRS PRN PO MODERATE PAIN Last administered on 04/10/18at 16:10; Start 04/05/18 at 08:45 Amino Acids/ Glycerin/ Electrolytes 1,000 ml @ 80 mls/hr [id number] IV Last administered on 04/07/18at 05:25; Start 04/06/18 at 15:30; Stop 04/07/18 at 15:38; Status DC Fluticasone Propionate (Flonase) 2 spray DAILY NS Last administered on at 09:23; Start 04/07/18 at 12:00 Cetirizine HCl (ZyrTEC) 10 mg PRN DAILY PRN PO ALLERGIES Last administered on at 13:21; Start 04/07/18 at 11:30; Stop 04/07/18 at 19:11; Status DC Oxycodone/ Acetaminophen (Percocet 5/325) 2 tab PRN Q4HRS PRN PO SEVERE PAIN Last administered on 04/08/18at 03:49; Start 04/07/18 at 12:00 Acetaminophen (Tylenol) 650 mg PRN Q6HRS PRN PEG MILD PAIN / TEMP; Start at 12:00 Hydromorphone HCl (Dilaudid) 0.4 mg PRN Q4HRS PRN IVP MODERATE-SEVERE PAIN; Start 04/07/18 at 12:00; Stop 04/08/18 at 10:10; Status DC Enoxaparin Sodium (Lovenox 40mg Syringe) 40 mg Q12HR SQ Last administered on 07/16at 09:24; Start 04/08/18 at 09:00 Potassium Chloride (Klor-Con) 20 meq 1X ONCE PO Last administered on 04/07/18at 13:27; Start 04/07/18 at 14:00; Stop 04/07/18 at 14:01; Status DC Potassium Chloride/Dextrose/ Sod Cl 1,000 ml @ 80 mls/hr [id number] IV Last administered on 04/08/18at 07:10; Start 04/07/18 at 16:00; Stop 04/08/18 at 10:10 ; Status DC Cetirizine HCl (ZyrTEC) 10 mg DAILY PO Last administered on 04/10/18at 09:24; Start 04/08/18 at 09:00 Sertraline HCl (Zoloft) 50 mg DAILY PO ; Start 04/08/18 at 09:00; Stop 04/08/18 at 10:39; Status DC Famotidine (Pepcid) 20 mg QHS PO Last administered on 04/09/18at 21:20; Start at 21:00 Potassium Chloride (Klor-Con) 40 meq 1X ONCE PO Last administered on at 14:04; Start 04/09/18 at 13:45; Stop 04/09/18 at 13:46; Status DC Active Scripts Active Reported Percocet 5-325 Mg Tablet (Oxycodone/Acetaminophen) 1 Each Tablet 1 Tab PO PRN Q4HRS Ondansetron Odt (Ondansetron) 4 Mg Tab.rapdis 1 Tab PO PRN Q6-8HRS Multivitamins (Multivitamin) 1 Each Tablet 1 Tab PO DAILY Zyrtec (Cetirizine Hcl) 10 Mg Tablet 1 Tab PO DAILY Hydrochlorothiazide Tablet (Hydrochlorothiazide) 25 Mg Tablet 25 Mg PO DAILY Ranitidine Hcl 150 Mg Capsule 150 Mg PO DAILY Allopurinol 100 Mg Tablet 100 Mg PO DAILY Vital Signs Vital Signs Date Time Temp Pulse Resp B/P (MAP) Pulse Ox O2 Delivery O2 Flow Rate FiO2 04/10/18 16:10 96 Room Air 04/10/18 15:00 18 04/10/18 11:00 97.9 70 97.9 04/09/18 08:00 2.0 Labs Laboratory Tests Test 04/08/18 16:22 04/08/18 21:06 04/09/18 07:28 04/09/18 07:42 Glucose (Fingerstick) 83 mg/dL (70-99) 125 mg/dL (70-99) 146 mg/dL (70-99) White Blood Count 21.5 x10^3/uL (4.0-11.0) Red Blood Count 3.69 x10^6/uL (4.30-5.70) Hemoglobin 11.5 g/dL (13.0-17.5) Hematocrit 34.4 % (39.0-53.0) Mean Corpuscular Volume 93 fL (79-100) Mean Corpuscular Hemoglobin 31 pg (25-35) Mean Corpuscular Hemoglobin Concent 33 g/dL (31-37) Red Cell Distribution Width 13.9 % (11.5-14.5) Platelet Count 637 x10^3/uL (140-400) Neutrophils (%) (Auto) 75 % (31-73) Lymphocytes (%) (Auto) 10 % (24-48) Monocytes (%) (Auto) 13 % (0-9) Eosinophils (%) (Auto) 2 % (0-3) Basophils (%) (Auto) 1 % (0-3) Neutrophils # (Auto) 16.1 x10^3uL (1.8-7.7) Lymphocytes # (Auto) 2.1 x10^3/uL (1.0-4.8) Monocytes # (Auto) 2.7 x10^3/uL (0.0-1.1) Eosinophils # (Auto) 0.4 x10^3/uL (0.0-0.7) Basophils # (Auto) 0.1 x10^3/uL (0.0-0.2) Sodium Level 134 mmol/L (136-145) Potassium Level 3.3 mmol/L (3.5-5.1) Chloride Level 100 mmol/L (98-107) Carbon Dioxide Level 28 mmol/L (21-32) Anion Gap 6 (6-14) Blood Urea Nitrogen 8 mg/dL (8-26) Creatinine 1.1 mg/dL (0.7-1.3) Estimated GFR (Cockcroft-Gault) 73.4 BUN/Creatinine Ratio 7 (6-20) Glucose Level 135 mg/dL (70-99) Calcium Level 8.5 mg/dL (8.5-10.1) Total Bilirubin 0.6 mg/dL (0.2-1.0) Aspartate Amino Transf (AST/SGOT) 37 U/L (15-37) Alanine Aminotransferase (ALT/SGPT) 83 U/L (16-63) Alkaline Phosphatase 127 U/L (46-116) Total Protein 6.8 g/dL (6.4-8.2) Albumin 2.7 g/dL (3.4-5.0) Albumin/Globulin Ratio 0.7 (1.0-1.7) Test 04/09/18 11:31 04/09/18 16:48 04/09/18 21:07 04/10/18 04:45 Glucose (Fingerstick) 103 mg/dL (70-99) 106 mg/dL (70-99) 113 mg/dL (70-99) White Blood Count 20.5 x10^3/uL (4.0-11.0) Red Blood Count 3.54 x10^6/uL (4.30-5.70) Hemoglobin 11.1 g/dL (13.0-17.5) Hematocrit 32.8 % (39.0-53.0) Mean Corpuscular Volume 93 fL (79-100) Mean Corpuscular Hemoglobin 31 pg (25-35) Mean Corpuscular Hemoglobin Concent 34 g/dL (31-37) Red Cell Distribution Width 13.7 % (11.5-14.5) Platelet Count 704 x10^3/uL (140-400) Neutrophils (%) (Auto) 73 % (31-73) Lymphocytes (%) (Auto) 10 % (24-48) Monocytes (%) (Auto) 15 % (0-9) Eosinophils (%) (Auto) 2 % (0-3) Basophils (%) (Auto) 0 % (0-3) Neutrophils # (Auto) 15.0 x10^3uL (1.8-7.7) Lymphocytes # (Auto) 2.0 x10^3/uL (1.0-4.8) Monocytes # (Auto) 3.0 x10^3/uL (0.0-1.1) Eosinophils # (Auto) 0.4 x10^3/uL (0.0-0.7) Basophils # (Auto) 0.1 x10^3/uL (0.0-0.2) Sodium Level 139 mmol/L (136-145) Potassium Level 3.5 mmol/L (3.5-5.1) Chloride Level 101 mmol/L (98-107) Carbon Dioxide Level 28 mmol/L (21-32) Anion Gap 10 (6-14) Blood Urea Nitrogen 9 mg/dL (8-26) Creatinine 1.1 mg/dL (0.7-1.3) Estimated GFR (Cockcroft-Gault) 73.4 BUN/Creatinine Ratio 8 (6-20) Glucose Level 115 mg/dL (70-99) Calcium Level 8.9 mg/dL (8.5-10.1) Total Bilirubin 0.5 mg/dL (0.2-1.0) Aspartate Amino Transf (AST/SGOT) 32 U/L (15-37) Alanine Aminotransferase (ALT/SGPT) 79 U/L (16-63) Alkaline Phosphatase 115 U/L (46-116) Total Protein 6.5 g/dL (6.4-8.2) Albumin 2.6 g/dL (3.4-5.0) Albumin/Globulin Ratio 0.7 (1.0-1.7) Test 04/10/18 07:54 04/10/18 10:26 Glucose (Fingerstick) 123 mg/dL (70-99) 130 mg/dL (70-99) Laboratory Tests Test 04/09/18 16:48 04/09/18 21:07 04/10/18 04:45 04/10/18 07:54 Glucose (Fingerstick) 106 mg/dL (70-99) 113 mg/dL (70-99) 123 mg/dL (70-99) White Blood Count 20.5 x10^3/uL (4.0-11.0) Red Blood Count 3.54 x10^6/uL (4.30-5.70) Hemoglobin 11.1 g/dL (13.0-17.5) Hematocrit 32.8 % (39.0-53.0) Mean Corpuscular Volume 93 fL (79-100) Mean Corpuscular Hemoglobin 31 pg (25-35) Mean Corpuscular Hemoglobin Concent 34 g/dL (31-37) Red Cell Distribution Width 13.7 % (11.5-14.5) Platelet Count 704 x10^3/uL (140-400) Neutrophils (%) (Auto) 73 % (31-73) Lymphocytes (%) (Auto) 10 % (24-48) Monocytes (%) (Auto) 15 % (0-9) Eosinophils (%) (Auto) 2 % (0-3) Basophils (%) (Auto) 0 % (0-3) Neutrophils # (Auto) 15.0 x10^3uL (1.8-7.7) Lymphocytes # (Auto) 2.0 x10^3/uL (1.0-4.8) Monocytes # (Auto) 3.0 x10^3/uL (0.0-1.1) Eosinophils # (Auto) 0.4 x10^3/uL (0.0-0.7) Basophils # (Auto) 0.1 x10^3/uL (0.0-0.2) Sodium Level 139 mmol/L (136-145) Potassium Level 3.5 mmol/L (3.5-5.1) Chloride Level 101 mmol/L (98-107) Carbon Dioxide Level 28 mmol/L (21-32) Anion Gap 10 (6-14) Blood Urea Nitrogen 9 mg/dL (8-26) Creatinine 1.1 mg/dL (0.7-1.3) Estimated GFR (Cockcroft-Gault) 73.4 BUN/Creatinine Ratio 8 (6-20) Glucose Level 115 mg/dL (70-99) Calcium Level 8.9 mg/dL (8.5-10.1) Total Bilirubin 0.5 mg/dL (0.2-1.0) Aspartate Amino Transf (AST/SGOT) 32 U/L (15-37) Alanine Aminotransferase (ALT/SGPT) 79 U/L (16-63) Alkaline Phosphatase 115 U/L (46-116) Total Protein 6.5 g/dL (6.4-8.2) Albumin 2.6 g/dL (3.4-5.0) Albumin/Globulin Ratio 0.7 (1.0-1.7) Test 04/10/18 10:26 Glucose (Fingerstick) 130 mg/dL (70-99) Allergies Allergies Coded Allergies Type Severity Reaction Last Updated Verified Iodinated Contrast- Oral and IV Dye Allergy Intermediate Hives 03/28/18 Yes egg Adverse Reaction Intermediate Nausea and Vomiting 04/01/18 Yes Disposition/Orders: D/C to Home Patient Instructions D/C [id number] MIN ARIANNE MONTES MD Apr 10, 2018 16:19
== END 2018-04-10 16:15 | disposition home or self-care (01) | DRG 405 ==
LOC: OPSVCIP 06:13 → 4 NORTH 14:18
PROVIDERS: ADMIT Surgery; ATTEND Surgery
PROC: 0FT44ZZ Resection of Gallbladder, Percutaneous Endoscopic Approach (ICD-10-PCS; 2018-04-02)
PROC: 0DB80ZX Excision of Small Intestine, Open Approach, Diagnostic (ICD-10-PCS; 2018-04-02)
PROC: BF131ZZ Fluoroscopy of Gallbladder and Bile Ducts using Low Osmolar Contrast (ICD-10-PCS; 2018-04-02)
PROC: 0FB13ZX Excision of Right Lobe Liver, Percutaneous Approach, Diagnostic (ICD-10-PCS; 2018-04-02)
PROC: 0FBG0ZZ Excision of Pancreas, Open Approach (ICD-10-PCS; principal; 2018-04-02 08:00)
PROC: 0DBU0ZZ Excision of Omentum, Open Approach (ICD-10-PCS; 2018-04-02 08:00)
PROC: 07TP0ZZ Resection of Spleen, Open Approach (ICD-10-PCS; 2018-04-02 08:00)
PROC: 5A09357 Assistance with Respiratory Ventilation, Less than 24 Consecutive Hours, Continuous Positive Airway Pressure (ICD-10-PCS; 2018-04-07)
PROC: 5A09357 Assistance with Respiratory Ventilation, Less than 24 Consecutive Hours, Continuous Positive Airway Pressure (ICD-10-PCS; 2018-04-08)
PROC: 5A09357 Assistance with Respiratory Ventilation, Less than 24 Consecutive Hours, Continuous Positive Airway Pressure (ICD-10-PCS; 2018-04-09)
DX: D13.6 Benign neoplasm of pancreas (principal); K85.90 Acute pancreatitis without necrosis or infection, unspecified; K86.2 Cyst of pancreas; K56.7 Ileus, unspecified; Z68.41 Body mass index [BMI] 40.0-44.9, adult; K65.4 Sclerosing mesenteritis; D50.0 Iron deficiency anemia secondary to blood loss (chronic); D63.8 Anemia in other chronic diseases classified elsewhere; E66.01 Morbid (severe) obesity due to excess calories; G47.33 Obstructive sleep apnea (adult) (pediatric); K21.9 Gastro-esophageal reflux disease without esophagitis; K66.0 Peritoneal adhesions (postprocedural) (postinfection); K76.0 Fatty (change of) liver, not elsewhere classified; M10.9 Gout, unspecified; N19 Unspecified kidney failure; N20.0 Calculus of kidney; N28.89 Other specified disorders of kidney and ureter; Z80.9 Family history of malignant neoplasm, unspecified; Z82.3 Family history of stroke; Z82.49 Family history of ischemic heart disease and other diseases of the circulatory system; Z83.3 Family history of diabetes mellitus; Z85.528 Personal history of other malignant neoplasm of kidney; Z87.442 Personal history of urinary calculi; Z90.5 Acquired absence of kidney; Z79.899 Other long term (current) drug therapy; Z91.041 Radiographic dye allergy status; Z91.012 Allergy to eggs
CPT/HCPCS: 36415; 74018; 74300; 80048; 80053; 82150; 82962; 84132; 85007; 85025; 86850; 86900; 86901; 88304; 88305; 88307; 88309; 88331; A7015; J0690; J1100; J1200; J1650; J1720; J1815; J2001; J2370; J2405; J2704; J2710; J2795; J3010; J3490; J7120; Q9967; S0028; 97530